=== PATIENT | female | born 1950 | race Asian ===

== ENCOUNTER 2016-12-23 08:44 | Inpatient (IN) | payer MEDICARE, BC ==
[~2016-12-23] VITALS: Ht 157.5 cm; Wt 57.8 kg
[2016-12-23] MEDS ORDERED: ASPIRIN 325 MG TAB PO STA (08:58)
[2016-12-23] MEDS ORDERED: SOD CHLORIDE 0.9% 1,000 ML IV STA (08:58)
--- NOTE | 2016-12-23 09:15 | ERA ---
ER Documentation Chief Complaint Date/Time DATE: 12/23/16 TIME: 09:10 Chief Complaint Right-sided weakness and numbness HPI This is 66-year-old female who stated that 2 days ago she woke with vertigo with nausea vomiting and she had some right foot numbness with mild weakness. She says she was seen at [facility] where she had a CAT scan that was negative and was told that she had vertigo. The patient and daughter state that they told the emergency room physician she was having these leg symptoms but was told that it was related to the vertigo. She said that throughout the day on Friday her numbness and tingling got worse in her right leg than yesterday was even worse with new symptoms of right upper extremity weakness when she woke in the morning. She says today is even worse. She has no speech difficulty or swallowing difficulty. Still has some mild vertigo but not as severe. No visual change. ROS All systems reviewed and are negative except as per history of present illness. Medications Home Meds Reported Medications Meclizine Hcl* (Meclizine Hcl*) 25 Mg Tablet, 25 MG PO Q8H Y for DIZZINESS, TAB 12/23/16 Hydrochlorothiazide* (Hydrochlorothiazide*) 25 Mg Tab, 25 MG PO DAILY, #30 TAB 12/23/16 Allergies Allergies: Coded Allergies: No Known Allergy (Unverified , 12/23/16) FmHx Family History: No coronary disease Physical Exam Vitals Vital Signs Date Time Temp Pulse Resp B/P Pulse Ox O2 Delivery O2 Flow Rate FiO2 12/23/16 11:30 97.9 64 17 161/84 100 2.0 12/23/16 10:00 97.6 61 16 185/79 100 Nasal Cannula 2.0 12/23/16 09:18 Nasal Cannula 2 12/23/16 09:00 98.5 61 11 183/87 100 Physical Exam Const: Well-developed, well-nourished Head: Atraumatic, normocephalic Eyes: Normal Conjunctiva, PERRLA, EOMI, normal sclera, no nystagmus ENT: Normal External Ears, Nose and Mouth, moist mucus membranes. Neck: Full range of motion. No meningismus, no lymphadenopathy. Resp: Clear to auscultation bilaterally, no wheezing, rhonchi, rales Cardio: Regular rate and rhythm, no murmurs, S1 S2 present Abd: Soft, non tender x 4, non distended. Normal bowel sounds, no guarding or rebound, no pulsitile abdominal masses or bruits Skin: No petechiae or rashes, no ecchymosis , no maculopapular rash Back: No midline or flank tenderness Ext: No cyanosis, or edema, FROM x 4, normal inspection, neurovascularly intact x 4 Neur: Awake and alert, STR 5/5 x 2, right upper extremity strength is 2- 3/5, right lower extremity strength is 2-3/5, sensation intact x .2, mild decreased sensation to the right arm and leg, cerebellum intact Psych: Normal Mood and Affect Result Diagram: 12/23/16 0850 12/23/16 0850 Results 24 hrs Laboratory Tests Test 12/23/16 08:50 Activated Partial Thromboplast Time 33.0Sec Alanine Aminotransferase (ALT/SGPT) 29IU/L Albumin 4.2g/dl Albumin/Globulin Ratio 1.07 Alkaline Phosphatase 165IU/L Anion Gap 20 Aspartate Amino Transf (AST/SGOT) 20IU/L Basophils # 0.010^3/ul Basophils % 0.4% Blood Morphology Comment Blood Urea Nitrogen 16mg/dl Calcium Level 9.8mg/dl Carbon Dioxide Level 26mmol/L Chloride Level 96mmol/L Creatinine 0.65mg/dl Direct Bilirubin 0.00mg/dl Eosinophils # 0.110^3/ul Eosinophils % 0.9% Globulin 3.90g/dl Glucose Level 312mg/dl Hematocrit 49.9% Hemoglobin 15.6g/dl INR International Normalized Ratio 0.89 Indirect Bilirubin 0.5mg/dl Lymphocytes # 1.810^3/ul Lymphocytes % 23.1% Mean Corpuscular Hemoglobin 20.6pg Mean Corpuscular Hemoglobin Concent 31.2g/dl Mean Corpuscular Volume 66.1fl Mean Platelet Volume 8.7fl Monocytes # 0.710^3/ul Monocytes % 8.9% Neutrophils # 5.210^3/ul Neutrophils % 66.7% Nucleated Red Blood Cells # 0.010^3/ul Nucleated Red Blood Cells % 0.0/100WBC Platelet Count 19671^3/UL Potassium Level 3.8mmol/L Prothrombin Time 12.0Sec Prothrombin Time Ratio 0.9 Red Blood Count 7.5510^6/ul Red Cell Distribution Width 15.0% Sodium Level 138mmol/L Total Bilirubin 0.5mg/dl Total Protein 8.1g/dl Troponin I < 0.012ng/ml White Blood Count 7.810^3/ul Current Medications Medications (Trade) Dose Ordered Sig/Marcus Route PRN Reason Start Time Stop Time Status Last Admin Dose Admin Sodium Chloride (NS) 1,000 ml @ 1,000 mls/hr Q1H STAT IV 12/23/16 08:58 12/23/16 09:57 DC 12/23/16 09:09 Aspirin (Aspirin) 325 mg ONCE STAT PO 12/23/16 08:58 12/23/16 08:59 DC Procedures/MDM EKG: Rate/Rhythm: Normal Sinus Rhythm,NL intervals QRS, ST, QT: NORMAL TX, QRS, QT] Impression: NORMAL EKG Patient is not a TPA candidate due to the onset of symptoms is 2 days ago PROCEDURE: CT Head without. CLINICAL INDICATION: Possible stroke. TECHNIQUE: The study was performed utilizing a multi-slice, multidetector CT scanner. Direct spiral 1 mm axial sections were obtained through the head without the use of intravenous contrast material. Coronal and sagittal reformats were obtained. The images were reviewed on a PACS workstation. RADIATION DOSE: CTDIvol: 44.9 mGy DLP: 630.2 mGy-cm COMPARISON: No prior studies are available for comparison. FINDINGS: There is no intracranial hemorrhage, extra-axial fluid collection, mass lesion, midline shift or hydrocephalus. There is mild prominence of the cerebral sulci , lateral and third ventricles. There is mild periventricular and subcortical white matter hypodensity. There is no extension of hypodensity through the cortex There is mild arteriosclerotic calcification of the parasellar internal carotid arteries. The pressley-white matter differentiation is preserved. The basal cisterns are patent. The midline structures are intact. There is pneumatization bilateral petrous apices without evidence of inflammatory changes , normal variant. The orbits, calvarium and extracranial soft tissues are normal in appearance. The visualized paranasal sinuses, mastoid air cells and middle ear cavities are normally aerated. IMPRESSION: 1. No acute intracranial abnormality. No intracranial hemorrhage, extra-axial fluid collection, mass lesion or hydrocephalous. 2. Mild peripheral and central cerebral volume loss. 3. Mild periventricular and subcortical white matter hypodensity, likely related to chronic microangiopathic changes. Number 4. No definite evidence of infarct. If clinical concern for infarct, MRI would be helpful for further evaluation. RPTAT: HGAS .Vipul Ramos MD, MD Date Time Electronically viewed and signed by .Vipul Ramos MD, MD on 12/23/2016 10: 31 .S/ CC: OUMOU FUNK DO PROCEDURE: XR Chest. CLINICAL INDICATION: Possible stroke. TECHNIQUE: Single frontal chest x-ray. COMPARISON: None available. FINDINGS: The cardiomediastinal silhouette is unremarkable. Aortic atherosclerotic vascular calcifications are identified. Bibasilar mild atelectasis is noted. No pneumothorax, pleural effusion or consolidation is seen. No acute osseous abnormality is noted. IMPRESSION: 1. Mild bibasilar atelectasis. 2. Aortic atherosclerosis. RPTAT: HFN .Lewis Melgar MD, MD Date Time Electronically viewed and signed by .Lewis Melgar MD, MD on 12/23/2016 10: 14 .N/ CC: OUMOU FUNK DO This patient's clinical picture is consistent with her having a stroke. She has new sided weakness along with vertigo. CT scan does not show an acute infarct or subacute infarct and she will need an MRI to further evaluate this. I will admit the patient to the hospital for further evaluation and workup Departure Diagnosis: Primary Impression: CVA (cerebral vascular accident) Qualified Code: I63.9 - Cerebrovascular accident (CVA), unspecified mechanism Condition: Stable OUMOU FUNK DO Dec 23, 2016 09:14
[2016-12-23 09:33] LABS: BASOPHILS % 0.4 % (0.0-2.0); EOSINOPHILS # 0.1 10^3/ul (0.0-0.5); EOSINOPHILS % 0.9 % (0.0-7.0); HEMATOCRIT 49.9 % (37.0-47.0); HEMOGLOBIN 15.6 g/dl (12.0-16.0); LYMPHOCYTES # 1.8 10^3/ul (0.8-2.9); LYMPHOCYTES % 23.1 % (15.0-51.0); MEAN CORPUSCULAR HEMOGLOBIN 20.6 pg (29.0-33.0); MEAN CORPUSCULAR HGB CONC 31.2 g/dl (32.0-37.0); MEAN CORPUSCULAR VOLUME 66.1 fl (82.0-101.0); MEAN PLATELET VOLUME 8.7 fl (7.4-10.4); MONOCYTE # 0.7 10^3/ul (0.3-0.9); MONOCYTES % 8.9 % (0.0-11.0); NEUTROPHIL # 5.2 10^3/ul (1.6-7.5); NEUTROPHILS % 66.7 % (39.0-77.0); PLATELET COUNT 288 10^3/UL (140-440); RED BLOOD COUNT 7.55 10^6/ul (4.20-5.40); UNCORRECTED WBC 7.8 10^3/ul (4.8-10.8); WHITE BLOOD COUNT 7.8 10^3/ul (4.8-10.8)
[2016-12-23 09:36] LABS: CONDITION 1; LH ANALYZER COMMENTS 1
[2016-12-23 09:41] LABS: ALBUMIN 4.2 g/dl (3.3-4.9); CHLORIDE 96 mmol/L (97-110); SODIUM 138 mmol/L (135-144)
[2016-12-23 09:42] LABS: INR 0.89; POTASSIUM 3.8 mmol/L (3.5-5.1); PT RATIO 0.9
[2016-12-23 09:44] LABS: ALANINE AMINOTRANSFERASE 29 IU/L (13-69); ALBUMIN/GLOBULIN RATIO 1.07; ALKALINE PHOSPHATASE 165 IU/L (42-121); ANION GAP 20 (8-16); ASPARTATE AMINO TRANSFERASE 20 IU/L (15-46); BILIRUBIN,INDIRECT 0.5 mg/dl (0-1.1); BILIRUBIN,TOTAL 0.5 mg/dl (0.2-1.3); BLOOD UREA NITROGEN 16 mg/dl (7-20); CARBON DIOXIDE 26 mmol/L (21-31); CREATININE 0.65 mg/dl (0.44-1.00); GLUCOSE 312 mg/dl (70-220); TOTAL PROTEIN 8.1 g/dl (6.1-8.1)
[2016-12-23 09:45] LABS: CALCIUM 9.8 mg/dl (8.4-10.2)
[2016-12-23] MEDS ORDERED: HYD25 PO (09:51)
[2016-12-23] MEDS ORDERED: MECL-77 PO (09:51)
[2016-12-23 10:01] LABS: TROPONIN-I < 0.012 ng/ml (0.00-0.12)
--- NOTE | 2016-12-23 10:15 | RADRPT ---
PROCEDURE: XR Chest. CLINICAL INDICATION: Possible stroke. TECHNIQUE: Single frontal chest x-ray. COMPARISON: None available. FINDINGS: The cardiomediastinal silhouette is unremarkable. Aortic atherosclerotic vascular calcifications are identified. Bibasilar mild atelectasis is noted. No pneumothorax, pleural effusion or consolidation is seen. No acute osseous abnormality is noted. IMPRESSION: 1. Mild bibasilar atelectasis. 2. Aortic atherosclerosis. RPTAT: HFN .Lewis Melgar MD, Date Time Electronically viewed and signed by .Lewis Melgar MD, on 12/23/2016 10:14 .N/
--- NOTE | 2016-12-23 10:31 | RADRPT ---
PROCEDURE: CT Head without. CLINICAL INDICATION: Possible stroke. TECHNIQUE: The study was performed utilizing a multi-slice, multidetector CT scanner. Direct spira l 1 mm axial sections were obtained through the head without the use of intravenous contrast materia l. Coronal and sagittal reformats were obtained. The images were reviewed on a PACS workstation. RADIATION DOSE: CTDIvol: 44.9 mGyDLP: 630.2 mGy-cm COMPARISON: No prior studies are available for comparison. FINDINGS: There is no intracranial hemorrhage, extra-axial fluid collection, mass lesion, midline shift or hyd rocephalus. There is mild prominence of the cerebral sulci, lateral and third ventricles. There is mild periventricular and subcortical white matter hypodensity. There is no extension of hypodensit y through the cortex There is mild arteriosclerotic calcification of the parasellar internal carotid arteries. The pressley-white matter differentiation is preserved. The basal cisterns are patent. The midline structures are intact. There is pneumatization bilateral petrous apices without evidence o f inflammatory changes, normal variant. The orbits, calvarium and extracranial soft tissues are nor mal in appearance. The visualized paranasal sinuses, mastoid air cells and middle ear cavities are n ormally aerated. IMPRESSION: 1. No acute intracranial abnormality. No intracranial hemorrhage, extra-axial fluid collection, ma ss lesion or hydrocephalous. 2. Mild peripheral and central cerebral volume loss. 3. Mild periventricular and subcortical white matter hypodensity, likely related to chronic microan giopathic changes. Number 4. No definite evidence of infarct. If clinical concern for infarct, MRI would be helpful for further evaluation. RPTAT: HGAS .Vipul Ramos MD, MD Date Time Electronically viewed and signed by .Vipul Ramos MD, MD on 12/23/2016 10:31 .S/
[2016-12-23] MEDS ORDERED: SOD CHLORIDE 0.9% 1,000 ML IV SCH (12:26)
[2016-12-23] MEDS ORDERED: ONDANSETRON 4 MG INJ IV PRN ×2 (12:30→13:30)
[2016-12-23] MEDS ORDERED: ACETAMINOPHEN 325 MG TAB PO PRN ×2 (12:30→13:30)
[2016-12-23] MEDS ORDERED: hydrALAzine 20 MG INJ IV PRN (13:30)
[2016-12-23] MEDS ORDERED: NACL 0.9% 3 ML SYG IV SCH (13:30)
[2016-12-23] MEDS ORDERED: BISACODYL (EC) 5 MG TAB PO PRN (13:30)
[2016-12-23] MEDS ORDERED: MAGNESIUM HYDROXIDE 30ML CUP PO PRN (13:30)
[2016-12-23] MEDS ORDERED: HYDROCODONE/APAP (5/325) TAB PO PRN (13:30)
[2016-12-23] MEDS ORDERED: morphine 2 MG INJ IV PRN (13:30)
[2016-12-23] MEDS ORDERED: LORAZEPAM 0.5 MG TAB PO PRN (13:30)
--- NOTE | 2016-12-23 14:02 | HP ---
Date/Time of Note Date/Time of Note DATE: 12/23/16 TIME: 13:57 Assessment/Plan VTE Prophylaxis VTE Prophylaxis Intervention: SCD's Lines/Catheters IV [facility] [place] Assessment/Plan Assessment/Plan 1. Right hemiparesis. Most probably underlying ischemic stroke. CT scan of the brain negative for any acute findings. Will obtain a brain MRI. The patient will be started on aspirin and statins. Will involve a neurology on the case. Physical therapy, occupational therapy, and speech therapy evaluation will be ordered. 2. Essential hypertension. Patient was noticed to have elevated blood pressure readings. The patient denied any history of essential hypertension. Permissive hypertension will be allowed since the patient most probably has underlying ischemic stroke. 3. Hyperglycemia. Etiology unclear. Will obtain a hemoglobin A1c to evaluate the blood glucose control over the past few weeks. If the patient continues to have elevated blood glucose, the patient will be started on sliding scale insulin. Plan: The patient will be admitted to inpatient telemetry floor. The patient will be started on a low-cholesterol diet. The patient will be started on DVT prophylaxis and gastrointestinal prophylaxis. The patient will remain a full code. Activities will be with assist. Baseline labs including hemoglobin A1c, thyroid panel, and fasting lipid panel will be obtained. A 2D echocardiogram will be obtained to evaluate the left ventricular ejection fraction and to evaluate for any wall motion abnormalities. Will also obtain a carotid Doppler study to evaluate for any hemodynamically significant stenosis. The rest of the patient's management will be based on the clinical course, inputs from consultants, and the results of diagnostic studies. Based on the patient's clinical presentation, she most probably requires at least 2 midnights' stay for further management and evaluation of her clinical presentation. The case and management of this patient was fully discussed with Dr. Domínguez. Approximately 60 minutes was spent on the history and physical of this patient. HPI/ROS Admit Date/Time Admit Date/Time Hx of Present Illness Reason for admission: Right-sided weakness. Consultants 1. Naina Newby MD, Neurology. This is a 66-year-old [place] female who denies any significant past medical history who came to the emergency room at [facility] because of complaint of sudden onset of right-sided weakness and dizziness. As per the patient she went to [facility] on 12/21/2016 because of similar complaints. At that time, the patient was discharged home on oral antiemetics and antihypertensives. The patient denied any prior diagnosis of hypertension. She denied any prior history of diabetes. In the emergency room , the patient was noted to have right-sided hemiparesis. However, the patient was outside the time window for considering any TPA. The patient underwent a brain CT scan that was negative for any acute intracranial findings. The patient was treated with oral aspirin in the emergency room. ROS Constitutional: no complaints Eyes: no complaints ENT: no complaints Respiratory: no complaints Cardiovascular: no complaints Gastrointestinal: no complaints Genitourinary: no complaints Musculoskeletal: no complaints Skin: no complaints Neurologic: dizziness, focal-weakness Endocrine: no complaints Lymphatic: no complaints Psychological: no complaints Immunologic: no complaints PMH/Family/Social Past Medical History Medical History: no pertinent history Past Surgical History Past Surgical Hx: other (Left knee surgery) Family History Significant Family History: heart disease (In mother), hypertension (In father) Social History Alcohol Use: other (Socially) Smoking Status: Never smoker Drug Use: none Exam/Review of Systems Vital Signs Vitals Vital Signs Date Time Temp Pulse Resp B/P Pulse Ox O2 Delivery O2 Flow Rate FiO2 12/23/16 11:30 97.9 64 17 161/84 100 2.0 12/23/16 10:00 Nasal Cannula Exam Exam General: Adequately build 66 year-old female lying in bed in no apparent distress. HEENT: Normocephalic, atraumatic. Eyes: Anicteric sclerae, conjunctivae clear. ENT: Nasal septum midline, oral mucosa moist. Neck supple, no JVD noticed. Respiratory: Bilaterally clear breath sounds. No use of accessory muscles of respiration. No adventitious breath sounds. Cardiovascular: S1, S2 heard. No murmurs or gallops. Abdomen: Soft, nontender, and nondistended. Bowel sounds positive in all 4 quadrants. Genitourinary: Deferred. Extremities: No cyanosis, no clubbing, no edema. Peripheral pulses palpable. Neurologic: The patient is awake, alert, and oriented. Right hemiparesis. Right upper extremity 2/5 and right lower extremity 2/5 strength. Skin: Normal skin turgor. No skin rashes. Labs Result Diagram: 12/23/16 0850 12/23/16 0850 Medications Medications Current Medications Sodium Chloride (NS) 1,000 ml @ 80 mls/hr [id number] IV Last administered on t 12:52; Admin Dose 80 MLS/HR; Start 12/23/16 at 12:26; Stop 12/24/16 at 00:55 Lorazepam (Ativan) 0.5 mg Q8H PRN PO ANXIETY; Start 12/23/16 at 13:30 Ondansetron HCl (Zofran Inj) 4 mg Q6H PRN IV NAUSEA AND/OR VOMITING; Start 12/23 at 13:30 Acetaminophen (Tylenol Tab) 650 mg Q6H PRN PO PAIN LEVEL 1-3 OR FEVER; Start at 13:30 Acetaminophen/ Hydrocodone Bitart (Clifford (5/325)) 1 tab Q6H PRN PO PAIN LEVEL 4 -6; Start 12/23/16 at 13:30 Morphine Sulfate (morphine) 2 mg Q4H PRN IV PAIN LEVEL 7-10; Start 12/23/16 at 13:30 Magnesium Hydroxide (Milk Of Mag) 30 ml DAILY PRN PO CONSTIPATION; Start at 13:30 Bisacodyl (Dulcolax) 5 mg DAILY PRN PO CONSTIPATION; Start 12/23/16 at 13:30 Famotidine (Pepcid Iv) 20 mg Q12 IV ; Start 12/23/16 at 21:00 Hydralazine HCl (Apresoline) 10 mg Q6H PRN IV SBP>180; Start 12/23/16 at 13:30 Aspirin (Halfprin) 81 mg DAILY PO ; Start 12/24/16 at 09:00 Atorvastatin Calcium (Lipitor) 40 mg HS PO ; Start 12/23/16 at 21:00 Meclizine HCl (Antivert) 12.5 mg TID PRN PO Vertigo; Start 12/23/16 at 13:[address] Scan MPRESSION: 1. No acute intracranial abnormality. No intracranial hemorrhage, extra-axial fluid collection, mass lesion or hydrocephalous. 2. Mild peripheral and central cerebral volume loss. 3. Mild periventricular and subcortical white matter hypodensity, likely related to chronic microangiopathic changes. Number 4. No definite evidence of infarct. If clinical concern for infarct, MRI would be helpful for further evaluation. CXR IMPRESSION: 1. Mild bibasilar atelectasis. 2. Aortic atherosclerosis. Twelve-Lead EKG Normal sinus rhythm. JUSTIN GORDILLO NP Dec 23, 2016 14:02
--- NOTE | 2016-12-23 14:03 | RADRPT ---
PROCEDURE: XR Knee. CLINICAL INDICATION: Knee pain. Evaluate for metal object. TECHNIQUE: Single AP view of the left knee is available for review. COMPARISON: None available FINDINGS: There is a cerclage wire and K wire fixation of the patella, partially evaluated on a single AP proj ection. The remaining osseous structures are intact. The medial and lateral femorotibial compartme nts appear grossly preserved. IMPRESSION: 1. Status post ORIF of the patella with hardware as above, partially evaluated. RPTAT: PP .Gokul Jennings MD, MD Date Time Electronically viewed and signed by .Gokul Jennings MD, MD on 12/23/2016 14:02 .d/
[2016-12-23] MEDS: MECLIZINE 12.5 MG TAB PO PRN (14:25)
[2016-12-23] MEDS ORDERED: GLUCOSE GEL 15 GRAM TUBE BUCCAL PRN (14:30)
[2016-12-23] MEDS ORDERED: GLUCOSE GEL 15 GRAM TUBE PO PRN ×2 (14:30)
[2016-12-23] MEDS ORDERED: GLUCAGON 1 MG INJ IM PRN (14:30)
[2016-12-23] MEDS ORDERED: DEXTROSE 50% 50 ML SYRINGE IV PRN ×2 (14:30)
--- NOTE | 2016-12-23 14:39 | RADRPT ---
Echocardiogram Report Patient Name: BRAIN DAVILA Gender: Female Date: 1950 Study Date: 23-Dec-2016 Inletter: Herson Goldsmith RDCS Location: ER Ref. Physician: JUSTIN GORDILLO Quality: Good Procedures: Transthoracic echocardiogram with complete 2D, M-Mode, and doppler examination. Indications: Evaluate Left Ventricular function. 2D/M Mode Doppler Measurement Value Normal Ranges Measurement Value Normal Ranges LVIDd 2D 3.9 3.5 - 5.6 cm AV Peak Roland 1.2 m/sec LVIDs 2D 2.4 2.1 - 4.1 cm AV Peak PG 6.0 mmHg FS 2D 39.1 % LVOT Peak Roland 1.1 m/sec LVPWd 2D 1.1 0.6 - 1.1 cm LVOT Peak PG 4.0 mmHg IVSd 2D 1.2 0.6 - 1.1 cm MV E Peak Roland 0.5 m/sec IVS/LVPW 2D 1.0 MV A Peak Roland 0.8 m/sec AoR Diam 2D 2.5 2.0 - 3.7 cm MV E/A 0.6 LA/Ao 2D 2 0 - 1 MV Decel Time 250 msec EDV 2D 59.8 cm3 MV E/A 0.6 ESV 2D 13.5 cm3 LA Dimen 2D 3.8 2.3 - 4.0 cm Findings Left Ventricle: Normal left ventricular systolic function. Normal left ventricular cavity size. Mild concentric left ventricular hypertrophy. Ejection fraction is visually estimated at 65 %. Tissue Doppler/Mitral Doppler indices are consistent with impaired relaxation (Stage I diastolic dysfunction). Right Ventricle: Normal right ventricular size. Normal right ventricular systolic function. Left Atrium: The left atrium is normal in size. Right Atrium: The right atrium is normal in size. Mitral Valve: Normal appearance and function of the mitral valve with trace physiologic regurgitation. Aortic Valve: Normal appearance of the aortic valve. No significant aortic stenosis or insufficiency. Tricuspid Valve: Normal appearance and function of the tricuspid valve with trace physiologic regurgitation. Pericardium: Normal pericardium with no significant pericardial effusion. Aorta: Normal aortic root. IVC: Normal size and normal respiratory collapse consistent with normal right atrial pressure. Conclusions 1.Normal left ventricular systolic function. Normal left ventricular cavity size. Mild concentric left ventricular hypertrophy. Ejection fraction is visually estimated at 65 %. Tissue Doppler/Mitral Doppler indices are consistent with impaired relaxation (Stage I diastolic dysfunction). 2.Normal appearance and function of the mitral valve with trace physiologic regurgitation. 3.Normal appearance of the aortic valve. No significant aortic stenosis or insufficiency. 4.Normal appearance and function of the tricuspid valve with trace physiologic regurgitation. Electronically Signed By: Stephan Jackson 23-Dec-2016 14:38:26 -0800 Patient Name: BRAIN DAVILA Study Date: 23-Dec-2016 [id number]
[2016-12-23 14:45] LABS: CHOL/HDL RATIO 5.7 RATIO
[2016-12-23 14:54] LABS: CK-MB 0.37 ng/ml (0.0-2.4)
--- NOTE | 2016-12-23 15:08 | RADRPT ---
PROCEDURE: US Carotids. CLINICAL INDICATION: bruit , STROKE TECHNIQUE: Multiple sonographic of the carotid bifurcation region and vertebral arteries were obta ined utilizing pressley scale, duplex and color-flow imaging. The images were reviewed on a PACS worksta tion. COMPARISON: No prior studies are available for comparison. FINDINGS: Evaluation of the right carotid bifurcation region reveals no significant calcific atherosclerotic d isease. Evaluation of the left carotid bifurcation region reveals no significant calcific atherosclerotic di sease. There is antegrade flow within the vertebral arteries bilaterally. RIGHT CAROTID MEASUREMENTS: Common Carotid Nmzvqp92.4 (cm/sec) Internal Carotid Artery - kbgmyioy57.8 (cm/sec) Internal Carotid Artery - mid84.7 (cm/sec) Internal Carotid Artery - coywxn57.1 (cm/sec) Internal Carotid/Common Carotid1.09 LEFT CAROTID MEASUREMENTS: Common Carotid Kwsmhk58 (cm/sec) Internal Carotid Artery - iwkwyakz89.1 (cm/sec) Internal Carotid Artery - midnot measured but with normal wave forms and grossly normal velocity Internal Carotid Artery - ilwfvv13 (cm/sec) Internal Carotid/Common Carotid0.84 RPTAT: AA IMPRESSION: No evidence for hemodynamically significant stenosis in the bilateral internal carotid arteries - va lidated velocity measurements with angiographic measurements, velocity criteria are extrapolated fro m diameter data as defined by the Society of Radiologists in Ultrasound Consensus Conference Radiolo gy 2003; 229;340-346. This study does indirectly reference the measurement of the distal ICA diamet er as the denominator for stenosis measurement. Normal antegrade flow in the vertebral arteries bilaterally. .Jamir Ortega MD, Date Time Electronically viewed and signed by .Jamir Ortega MD, MD on 12/23/2016 15:07 .S/
[2016-12-23 15:17] LABS: THYROID STIMULATING HORMONE 0.222 MIU/L (0.465-4.680)
--- NOTE | 2016-12-23 17:15 | RADRPT ---
AMENDMENT: 12/25/2016 4:51:56 PM Hardik Vargas M.D. Impression: There is a 6.7 mm acute infarct in the ventral janis at the level of the fourth ventricl e. There is a 3 mm acute infarct in the dorsal janis just ventral to the fourth ventricle. This repr esents a correction to the earlier report. PROCEDURE: MRA Brain without contrast. CLINICAL INDICATION: Stroke-like symptoms. TECHNIQUE: Multi echo multiplanar imaging is performed to the brain. COMPARISON: CT scan of the brain 12/23/2016. FINDINGS: The weighted images of the brain are performed with no focal areas of acute ischemic change identifi ed. ADC maps of the brain are normal. The fourth ventricle, third and lateral ventricles are aleks l in size and configuration. There are extensive changes in the white matter tracts at the level of the centrum semiovale and cor jamil radiata. There are chronic small vessel ischemic changes in the insular cortex greater on the l eft side than right. The the basal ganglia are unremarkable. There is some chronic ischemic change in the mid janis ventral to the fourth ventricle para There is no evidence of subarachnoid hemorrhage. The pituitary gland is normal in size for the cere bellum is normal. The parotid glands are unremarkable or visualized. The visible portions of the p aranasal sinuses and mastoid air cells are clear bilaterally. The bony calvarium is intact. IMPRESSION: 1. Chronic small vessel ischemic changes are noted in the janis and periventricular white matter tra cts adjacent to the lateral ventricles. 2. There is no evidence of a intracranial hemorrhage or acute intracerebral edema. 3. Repeated calls to [phone] were attempted. RPTAT:AAJJ Physician Gerry Date Time Electronically viewed and signed by Physician Gerry on 12/25/2016 16:52 OLIVIA/
--- NOTE | 2016-12-23 17:16 | RADRPT ---
PROCEDURE: MRA Brain. CLINICAL INDICATION: CVA TECHNIQUE: An MRA of the brain was performed on a 1.5 melissa scanner utilizing 3-D [id number]-[id number] MR angiography technique. Source and MIP images were reviewed. COMPARISON: None FINDINGS: 6 x 3 x 3 mm outpouching compatible with intracranial aneurysm at the junction of the anterior commu nicating artery and right A1 segment. CT angiography is recommended to confirm this finding . The internal carotid arteries are patent and normal in caliber. The middle cerebral and the anterio r cerebral arteries are also patent and normal in caliber with no significant luminal irregularity o r narrowing identified. The vertebral arteries, basilar artery, and superior cerebellar arteries are visualized and normal i n appearance. The vertebral artery is dominant. The posterior cerebral arteries are patent and normal in appearance bilaterally. No vascular malfo rmation. IMPRESSION: 1. 6 x 3 x 3 mm vascular outpouching at the junction of the right A1 segment and anterior communicat ing artery. most compatible with intracranial aneurysm. 2. No vascular malformation or large branch occlusion. RPTAT:AAJJ Physician Clau Date Time Electronically viewed and signed by Physician Clau on 12/23/2016 17:11 MACI/
[2016-12-23 19:15] VITALS: TEMP 98.6
[2016-12-23] MEDS: INSULIN ASPART [NOVOLOG] 3 ML PEN SC SCH ×2 (19:32→22:27)
[2016-12-23 20:00] VITALS: BP 144/75; PULSE 77; RESP 20; Ht 157.5 cm; Wt 57.8 kg
[2016-12-23 20:29] VITALS: BP 160/72; RESP 20
[2016-12-23 21:00] VITALS: BP 144/76; PULSE 77; RESP 20
[2016-12-23] MEDS: FAMOTIDINE 20 MG INJ IV SCH (22:11)
[2016-12-23] MEDS: ATORVASTATIN 40 MG TAB PO SCH (22:11)
[2016-12-23 23:43] VITALS: BP 154/70; RESP 20
[2016-12-24] VITALS (11 sets, daily range): BP systolic 129–193; BP diastolic 62–82; PULSE 57–85; RESP 15–20
[2016-12-24] MEDS: MECLIZINE 12.5 MG TAB PO PRN (07:57)
[2016-12-24 08:39] LABS: BASOPHIL # 0.1 10^3/ul (0.0-0.1); BASOPHILS % 0.9 % (0.0-2.0); EOSINOPHILS # 0.3 10^3/ul (0.0-0.5); EOSINOPHILS % 2.9 % (0.0-7.0); HEMATOCRIT 45.4 % (37.0-47.0); HEMOGLOBIN 14.5 g/dl (12.0-16.0); LYMPHOCYTES # 2.4 10^3/ul (0.8-2.9); LYMPHOCYTES % 27.1 % (15.0-51.0); MEAN CORPUSCULAR HEMOGLOBIN 21.1 pg (29.0-33.0); MEAN CORPUSCULAR HGB CONC 31.9 g/dl (32.0-37.0); MEAN CORPUSCULAR VOLUME 66.1 fl (82.0-101.0); MEAN PLATELET VOLUME 9.1 fl (7.4-10.4); MONOCYTE # 0.8 10^3/ul (0.3-0.9); MONOCYTES % 9.2 % (0.0-11.0); NEUTROPHIL # 5.4 10^3/ul (1.6-7.5); NEUTROPHILS % 59.9 % (39.0-77.0); PLATELET COUNT 318 10^3/UL (140-440); RED BLOOD COUNT 6.86 10^6/ul (4.20-5.40); RED CELL DISTRIBUTION WIDTH 14.9 % (11.5-14.5)
[2016-12-24 08:41] LABS: ALBUMIN 3.7 g/dl (3.3-4.9)
[2016-12-24 08:42] LABS: CREATINE KINASE 42 IU/L (23-200); MAGNESIUM 1.9 mg/dl (1.7-2.5); PHOSPHORUS 2.8 mg/dl (2.5-4.9); POTASSIUM 3.4 mmol/L (3.5-5.1)
[2016-12-24 08:44] LABS: ALBUMIN/GLOBULIN RATIO 1.05; BILIRUBIN,INDIRECT 0.6 mg/dl (0-1.1); BILIRUBIN,TOTAL 0.6 mg/dl (0.2-1.3); CREATININE 0.54 mg/dl (0.44-1.00); TOTAL PROTEIN 7.2 g/dl (6.1-8.1)
[2016-12-24 08:45] LABS: CALCIUM 8.9 mg/dl (8.4-10.2)
[2016-12-24 08:54] LABS: CK-MB < 0.22 ng/ml (0.0-2.4); TROPONIN-I < 0.012 ng/ml (0.00-0.12)
[2016-12-24 08:58] LABS: CONDITION 1; LH ANALYZER COMMENTS 1
[2016-12-24] MEDS: FAMOTIDINE 20 MG INJ IV SCH (08:59)
[2016-12-24] MEDS ORDERED: ASPIRIN (EC) 81 MG TAB PO SCH (09:00)
[2016-12-24] MEDS: INSULIN ASPART [NOVOLOG] 3 ML PEN SC SCH ×7 (09:07→21:47)
[2016-12-24] MEDS ORDERED: POTASSIUM CHLORIDE (SR) 20 MEQ TAB PO STA (10:05)
--- NOTE | 2016-12-24 10:11 | PN ---
Date/Time of Note Date/Time of Note DATE: 12/24/16 TIME: 10:10 Assessment/Plan VTE Prophylaxis VTE Prophylaxis Intervention: SCD's Lines/Catheters IV [facility]ter Type (from [facility]): Peripheral IV Urinary Cath still in place: No Assessment/Plan Chief Complaint/Hosp Course 1. Right hemiparesis. Physical therapy, occupational therapy, and speech therapy evaluation ordered. Brain MRI showing 6 x 3 x 3 mm vascular outpouching at the junction of the right A1 segment and anterior communicating artery. most compatible with intracranial aneurysm. Neurology following. Will discontinue the aspirin. Will continue statins. 2. Essential hypertension. Will start the patient on routine antihypertensives. Continue PRN antihypertensives. 3. Type 2 diabetes mellitus. New onset versus newly diagnosed. Hemoglobin A1c 11.5. The patient currently on sliding scale insulin. Will also start the patient on basal insulin and pre-meal insulin. Will involve medical educator. 4 . Dyslipidemia. The patient currently on statins which will be continued. 5. Vitamin D deficiency. Will start the patient on vitamin D supplements. 6. Fluids, electrolytes, and nutrition. Carbohydrate controlled, low- cholesterol diet. 7. DVT prophylaxis with bilateral sequential compression devices. 8. Gastrointestinal prophylaxis. Histamine 2 receptor blockers. 9. Plan. Await PT and OT evaluation. Case discussed with Dr. Domínguez. The case was discussed with neurology. Neurology recommended neurosurgery evaluation. Will call neurosurgery. Problems: Subjective 24 Hr Interval Summary Free Text/Dictation Complains of dizziness. Exam/Review of Systems Vital Signs Vitals Vital Signs Date Time Temp Pulse Resp B/P Pulse Ox O2 Delivery O2 Flow Rate FiO2 12/24/16 08:37 57 12/24/16 07:45 97.4 20 188/78 93 12/23/16 21:00 Nasal Cannula 2.0 Intake and Output 12/23/16 12/23/16 12/24/16 15:00 23:00 07:00 Intake Total 300 ml Balance 300 ml Exam General: Adequately build 66 year-old female lying in bed in no apparent distress. HEENT: Normocephalic, atraumatic. Eyes: Anicteric sclerae, conjunctivae clear. ENT: Nasal septum midline, oral mucosa moist. Neck supple, no JVD noticed. Respiratory: Bilaterally clear breath sounds. No use of accessory muscles of respiration. No adventitious breath sounds. Cardiovascular: S1, S2 heard. No murmurs or gallops. Abdomen: Soft, nontender, and nondistended. Bowel sounds positive in all 4 quadrants. Genitourinary: Deferred. Extremities: No cyanosis, no clubbing, no edema. Peripheral pulses palpable. Neurologic: The patient is awake, alert, and oriented. Right hemiparesis. Right upper extremity 2/5 and right lower extremity 2/5 strength. Skin: Normal skin turgor. No skin rashes. Results Result Diagram: 12/24/16 0720 12/24/16 0720 Results 24 hrs Laboratory Tests Test 12/23/16 15:00 12/23/16 19:20 12/23/16 22:09 12/24/16 07:20 Hemoglobin A1c 11.5 H Bedside Glucose 157 224 H Alanine Aminotransferase (ALT/SGPT) 23 Albumin 3.7 Albumin/Globulin Ratio 1.05 Alkaline Phosphatase 140 H Anion Gap 17 H Aspartate Amino Transf (AST/SGOT) 24 Basophils # 0.1 Basophils % 0.9 Blood Morphology Comment Blood Urea Nitrogen 16 Calcium Level 8.9 Carbon Dioxide Level 25 Chloride Level 100 Creatine Kinase 42 Creatine Kinase Index 0.5 Creatinine 0.54 Creatinine Kinase MB (Mass) < 0.22 Direct Bilirubin 0.00 Eosinophils # 0.3 Eosinophils % 2.9 Globulin 3.50 H Glucose Level 184 # Hematocrit 45.4 Hemoglobin 14.5 Indirect Bilirubin 0.6 Lymphocytes # 2.4 Lymphocytes % 27.1 Magnesium Level 1.9 Mean Corpuscular Hemoglobin 21.1 L Mean Corpuscular Hemoglobin Concent 31.9 L Mean Corpuscular Volume 66.1 L Mean Platelet Volume 9.1 Monocytes # 0.8 Monocytes % 9.2 Neutrophils # 5.4 Neutrophils % 59.9 Nucleated Red Blood Cells # 0.0 Nucleated Red Blood Cells % 0.0 Phosphorus Level 2.8 Platelet Count 318 Potassium Level 3.4 L Red Blood Count 6.86 H Red Cell Distribution Width 14.9 H Sodium Level 139 Total Bilirubin 0.6 Total Protein 7.2 Troponin I < 0.012 White Blood Count 9.0 Test 12/24/16 08:08 Bedside Glucose 197 Medications Medications Current Medications Lorazepam (Ativan) 0.5 mg Q8H PRN PO ANXIETY; Start 12/23/16 at 13:30 Ondansetron HCl (Zofran Inj) 4 mg Q6H PRN IV NAUSEA AND/OR VOMITING; Start 12/23 at 13:30 Acetaminophen (Tylenol Tab) 650 mg Q6H PRN PO PAIN LEVEL 1-3 OR FEVER; Start at 13:30 Acetaminophen/ Hydrocodone Bitart ([place] (5/325)) 1 tab Q6H PRN PO PAIN LEVEL 4 -6; Start 12/23/16 at 13:30 Morphine Sulfate (morphine) 2 mg Q4H PRN IV PAIN LEVEL 7-10; Start 12/23/16 at 13:30 Magnesium Hydroxide (Milk Of Mag) 30 ml DAILY PRN PO CONSTIPATION; Start at 13:30 Bisacodyl (Dulcolax) 5 mg DAILY PRN PO CONSTIPATION; Start 12/23/16 at 13:30 Famotidine (Pepcid Iv) 20 mg Q12 IV Last administered on 12/24/16 08:59; Admin Dose 20 MG; Start 12/23/16 at 21:00 Hydralazine HCl (Apresoline) 10 mg Q6H PRN IV SBP>180 Last administered on 14:25; Admin Dose 10 MG; Start 12/23/16 at 13:30 Aspirin (Halfprin) 81 mg DAILY PO Last administered on 12/24/16 08:59; Admin Dose 81 MG; Start 12/24/16 at 09:00 Atorvastatin Calcium (Lipitor) 40 mg HS PO Last administered on 12/23/16 22:11 ; Admin Dose 40 MG; Start 12/23/16 at 21:00 Meclizine HCl (Antivert) 12.5 mg TID PRN PO Vertigo Last administered on 07:57; Admin Dose 12.5 MG; Start 12/23/16 at 13:30 Miscellaneous Information 1 ea NOTE XX ; Start 12/23/16 at 14:30 Glucose (Glutose) 15 gm Q15M PRN PO DECREASED GLUCOSE; Start 12/23/16 at 14:30 Glucose (Glutose) 22.5 gm Q15M PRN PO DECREASED GLUCOSE; Start 12/23/16 at 14:30 Dextrose (D50w Syringe) 25 ml Q15M PRN IV DECREASED GLUCOSE; Start 12/23/16 at 14:30 Dextrose (D50w Syringe) 50 ml Q15M PRN IV DECREASED GLUCOSE; Start 12/23/16 at 14:30 Glucagon (Glucagen) 1 mg Q15M PRN IM DECREASED GLUCOSE; Start 12/23/16 at 14:30 Glucose (Glutose) 15 gm Q15M PRN BUCCAL DECREASED GLUCOSE; Start 12/23/16 at 14: 30 Nifedipine (Procardia Xl) 60 mg BID PO ; Start 12/24/16 at 10:00 JUSTIN GORDILLO NP Dec 24, 2016 10:10
[2016-12-24 10:24] LABS: ADD UMIC YES; URINE BILIRUBIN (Dip) NEGATIVE (NEGATIVE); URINE BLOOD (Dip) NEGATIVE (NEGATIVE); URINE COLOR LT. YELLOW (YELLOW); URINE KETONES (Dip) NEGATIVE (NEGATIVE); URINE LEUKOCYTE ESTERASE (Dip) 1+ (NEGATIVE); URINE NITRITE (Dip) NEGATIVE (NEGATIVE); URINE TOTAL PROTEIN (Dip) NEGATIVE (NEGATIVE); URINE UROBILINOGEN (Dip) 0.2 E.U./dL (0.1-1.0)
[2016-12-24 10:36] LABS: BACTERIA,URINE FEW; MUCUS,URINE MODERATE; SQUAMOUS EPITHELIAL CELL,UR MODERATE; URINE RBCS NONE SEEN /HPF (0)
[2016-12-24] MEDS: CHOLECALCIFEROL 1,000 UNIT TAB PO SCH (11:45)
[2016-12-24] MEDS: NIFEdipine (XL) 60 MG TAB PO SCH ×2 (11:45→21:48)
[2016-12-24 11:47] LABS: BARBITURATES NEGATIVE (NEGATIVE); BENZODIAZEPINES NEGATIVE (NEGATIVE); CANNABINOIDS NEGATIVE (NEGATIVE); COCAINE NEGATIVE (NEGATIVE); OPIATES NEGATIVE (NEGATIVE)
--- NOTE | 2016-12-24 12:14 | CONS ---
Date/Time of Note Date/Time of Note DATE: 12/24/16 TIME: 11:55 Assessment/Plan Assessment/Plan Chief Complaint/Hosp Course 66 year old female with right sided weakness mostly involving distal muscle groups since this past Friday, incidental unruptured 6 x 3 x 3 mm aneurysm found in Right A1 and Right ACOM and MRI with extensive chronic microvascular changes. -MRA may overestimate size of intracranial aneurysm, will obtain CTA Head w contrast for further evaluation -will request neurosurgery to review imaging, she will require outpatient follow up with endovascular neurosurgery as well -MRI Cervical Spine w/o contrast to r/o possible cord pathology -PT/OT/Speech follow up -DVT ppx -will follow Problems: Consultation Date/Type/Reason Admit Date/Time 12/23/16 Date of Consultation: Dec 24, 2016 Type of Consultation: Neurology Reason for Consultation right sided weakness since Friday Referring Provider: JUSTIN GORDILLO NP Hx of Present Illness 66 year old Greek female with no reported medical issues presented with complaints of sudden onset right sided weakness since this past Friday. She went to [place] for similar sx on 12/21 was dc home on antiemetics and antihypertensives, has no known history of hypertension. While in the ED she was noted to right hemiparesis out of a window for IV tPA. Initial Head CT was negative, she was admitted for further work up. MRI Brain chronic microvascular changes, no acute infarct. MRA Head shows 6 x 3 x 3 mm outpouching at junction of A1 segment and ANA intracranial aneurysm no vascular occlusion dizziness intermittent neck pain blurred vision right sided weakness Eyes: no complaints ENT: no complaints Respiratory: no complaints Cardiovascular: no complaints Gastrointestinal: no complaints Genitourinary: no complaints Musculoskeletal: no complaints Skin: no complaints Neurologic: dizziness, focal-weakness Lymphatic: no complaints Psychological: no complaints Immunologic: no complaints Past Medical History Medical History: no pertinent history Past Surgical History Past Surgical Hx: other (Left knee surgery) Social History Alcohol Use: rarely Smoking Status: Never smoker Drug Use: none Exam/Review of Systems Vital Signs Vitals Vital Signs Date Time Temp Pulse Resp B/P Pulse Ox O2 Delivery O2 Flow Rate FiO2 12/24/16 11:35 97.5 63 20 193/82 95 12/23/16 21:00 Nasal Cannula 2.0 Intake and Output 12/23/16 12/23/16 12/24/16 15:00 23:00 07:00 Intake Total 300 ml Balance 300 ml Exam awake and alert oriented x3 crying intermittently during examination no aphasia CN: CORBY, VFF, slight skew deviation on upgaze, mild right NLF flattening palate upgoing uvula midline scm/trap intact tongue is midline Motor: Left UE and LE 5/5 strength RUE weakness 3/5 mostly distally can lift anti-gravity when arm is supported she has 3/5 strength in flexion extension profound hand weakness RLE hip flexion 3/5 knee flexion extension 3/5 absent plantar flexion dorsiflexion Sensory: decreased to right face, right arm and right leg Reflexes: 2+ Biceps and Triceps, Brachioradialis, Patella 2+, absent AJ toes down Results Result Diagram: 12/24/1671912/24/16 0720 Results 24 hrs Laboratory Tests Test 12/23/16 15:00 12/23/16 19:20 12/23/16 22:09 12/24/16 07:20 Hemoglobin A1c 11.5 H Bedside Glucose 157 224 H Alanine Aminotransferase (ALT/SGPT) 23 Albumin 3.7 Albumin/Globulin Ratio 1.05 Alkaline Phosphatase 140 H Anion Gap 17 H Aspartate Amino Transf (AST/SGOT) 24 Basophils # 0.1 Basophils % 0.9 Blood Morphology Comment Blood Urea Nitrogen 16 Calcium Level 8.9 Carbon Dioxide Level 25 Chloride Level 100 Creatine Kinase 42 Creatine Kinase Index 0.5 Creatinine 0.54 Creatinine Kinase MB (Mass) < 0.22 Direct Bilirubin 0.00 Eosinophils # 0.3 Eosinophils % 2.9 Globulin 3.50 H Glucose Level 184 # Hematocrit 45.4 Hemoglobin 14.5 Indirect Bilirubin 0.6 Lymphocytes # 2.4 Lymphocytes % 27.1 Magnesium Level 1.9 Mean Corpuscular Hemoglobin 21.1 L Mean Corpuscular Hemoglobin Concent 31.9 L Mean Corpuscular Volume 66.1 L Mean Platelet Volume 9.1 Monocytes # 0.8 Monocytes % 9.2 Neutrophils # 5.4 Neutrophils % 59.9 Nucleated Red Blood Cells # 0.0 Nucleated Red Blood Cells % 0.0 Phosphorus Level 2.8 Platelet Count 318 Potassium Level 3.4 L Red Blood Count 6.86 H Red Cell Distribution Width 14.9 H Sodium Level 139 Total Bilirubin 0.6 Total Protein 7.2 Troponin I < 0.012 White Blood Count 9.0 Test 12/24/16 07:43 12/24/16 08:08 Urine Amphetamines Screen NEGATIVE Urine Bacteria FEW Urine Barbiturates NEGATIVE Urine Benzodiazepines Screen NEGATIVE Urine Bilirubin NEGATIVE Urine Cannabinoids NEGATIVE Urine Clarity HAZY Urine Cocaine Screen NEGATIVE Urine Color LT. YELLOW Urine Glucose 0.1% H Urine Hemoglobin NEGATIVE Urine Ketones NEGATIVE Urine Leukocyte Esterase 1+ H Urine Microscopic RBC NONE SEEN Urine Microscopic WBC 10-25 Urine Mucus MODERATE Urine Nitrite NEGATIVE Urine Opiates Screen NEGATIVE Urine Specific [place] 1.025 Urine Squamous Epithelial Cells MODERATE Urine Total Protein NEGATIVE Urine Urobilinogen 0.2 E.U./dL Urine pH 6.0 Bedside Glucose 197 Medications Medications Current Medications Lorazepam (Ativan) 0.5 mg Q8H PRN PO ANXIETY; Start 12/23/16 at 13:30 Ondansetron HCl (Zofran Inj) 4 mg Q6H PRN IV NAUSEA AND/OR VOMITING; Start 12/23 at 13:30 Acetaminophen (Tylenol Tab) 650 mg Q6H PRN PO PAIN LEVEL 1-3 OR FEVER; Start at 13:30 Acetaminophen/ Hydrocodone Bitart ([place] (5/325)) 1 tab Q6H PRN PO PAIN LEVEL 4 -6; Start 12/23/16 at 13:30 Morphine Sulfate (morphine) 2 mg Q4H PRN IV PAIN LEVEL 7-10; Start 12/23/16 at 13:30 Magnesium Hydroxide (Milk Of Mag) 30 ml DAILY PRN PO CONSTIPATION; Start at 13:30 Bisacodyl (Dulcolax) 5 mg DAILY PRN PO CONSTIPATION; Start 12/23/16 at 13:30 Famotidine (Pepcid Iv) 20 mg Q12 IV Last administered on 12/24/16 08:59; Admin Dose 20 MG; Start 12/23/16 at 21:00 Hydralazine HCl (Apresoline) 10 mg Q6H PRN IV SBP>180 Last administered on 14:25; Admin Dose 10 MG; Start 12/23/16 at 13:30 Atorvastatin Calcium (Lipitor) 40 mg HS PO Last administered on 12/23/16 22:11 ; Admin Dose 40 MG; Start 12/23/16 at 21:00 Meclizine HCl (Antivert) 12.5 mg TID PRN PO Vertigo Last administered on 07:57; Admin Dose 12.5 MG; Start 12/23/16 at 13:30 Miscellaneous Information 1 ea NOTE XX ; Start 12/23/16 at 14:30 Glucose (Glutose) 15 gm Q15M PRN PO DECREASED GLUCOSE; Start 12/23/16 at 14:30 Glucose (Glutose) 22.5 gm Q15M PRN PO DECREASED GLUCOSE; Start 12/23/16 at 14:30 Dextrose (D50w Syringe) 25 ml Q15M PRN IV DECREASED GLUCOSE; Start 12/23/16 at 14:30 Dextrose (D50w Syringe) 50 ml Q15M PRN IV DECREASED GLUCOSE; Start 12/23/16 at 14:30 Glucagon (Glucagen) 1 mg Q15M PRN IM DECREASED GLUCOSE; Start 12/23/16 at 14:30 Glucose (Glutose) 15 gm Q15M PRN BUCCAL DECREASED GLUCOSE; Start 12/23/16 at 14: 30 Nifedipine (Procardia Xl) 60 mg BID PO Last administered on 12/24/16 11:45; Admin Dose 60 MG; Start 12/24/16 at 10:00 Insulin Glargine (Lantus) 6 unit HS SC ; Start 12/24/16 at 21:00 Diagnostic Test (Pha) (Accucheck) 1 ea 02 XX ; Start 12/25/16 at 02:00 Cholecalciferol (Vitamin D) 1,000 unit DAILY PO Last administered on 12/24/16 11:45; Admin Dose 1,000 UNIT; Start 12/24/16 at 10:30 JORGE VELÁZQUEZ MD Dec 24, 2016 12:09
[2016-12-24] MEDS ORDERED: SOD CHLORIDE 0.9% 100 ML ONE (14:02)
[2016-12-24] MEDS ORDERED: IODIXANOL LOCM 100 ML BTL ONE (14:02)
--- NOTE | 2016-12-24 16:27 | RADRPT ---
PROCEDURE: CT angiogram brain. CLINICAL INDICATION: Evaluate right A1 segment aneurysm TECHNIQUE: The study was performed utilizing a [employer] 64-slice multidetector CT scanner. 0 .6 axial sections were obtained from the skull base to the vertex with the use of 90 cc of Visipaque 320 intravenous contrast. Coronal and sagittal reformats were obtained. CTDIvol = 67.61 mGy and D LP = 450.28 mGycm. COMPARISON: MRA brain 12/23/2016 FINDINGS: The bilateral internal carotid arteries are patent and normal in caliber. Corresponding to the MRA findings within the anterior communicating artery at the junction with the LEFT A1 segment is an ovoid extraluminal projection of contrast media that is oriented pointing in a cephalad manner and tilted slightly towards the right of midline, the aneurysm estimated at 0.6 x 0 .3 x 0.4 cm in AP, transverse and cranial caudal dimensions respectively (series 2 image 149, series 601 image 37.). The neck of the aneurysm is estimated at 1.7 mm on axial image 150. There is norm al enhancement within the A2 segments which are symmetric and no additional aneurysm is demonstrated The bilateral middle cerebral arteries are patent and normal in caliber. The bilateral vertebral a rteries, basilar artery, and bilateral posterior cerebral arteries are patent and normal in caliber. No arteriovenous malformation is observed. RPTAT:HJJR IMPRESSION: 1. 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 The size of the aneurysm which po ints in a cephalad and slightly rightward manner is measured at 0.6 x 0.4 [address] angiography . 2. No additional intracranial aneurysms are demonstrated, the remainder of the examination is unrema rkable Physician Eloise Date Time Electronically viewed and signed by Physician Eloise on 12/24/2016 16:26 /
--- NOTE | 2016-12-24 17:19 | RADRPT ---
PROCEDURE: MR Cervical Spine noncontrast. CLINICAL INDICATION: Right-sided weakness. TECHNIQUE: Multiplanar multisequence noncontrast MRI of the cervical spine was performed. COMPARISON: There are no similar studies submitted for comparison. MRI of the brain from December. FINDINGS: There is straightening of the normal cervical lordosis. The vertebral body heights are maintained. There is normal alignment. There is no destructive osseous lesion. There is no abnormal bone marrow edema. There is disk desiccation from C2-C3 to C6-C7 with moderate to severe C3-C4, moderate to severe C4-C 5, mild to moderate C5-C6, and moderate C6-C7 disk space narrowing. The spinal cord is normal in caliber. The spinal cord is normal in signal. C2-C3 : There is no disc herniation, spinal canal, or foraminal stenosis. C3-C4 : There is a 1 mm broad-based disk osteophyte complex without spinal canal stenosis. There is mild bilateral facet arthropathy and bilateral uncovertebral hypertrophy causing severe bilateral f oraminal stenosis. This affects the exiting bilateral C4 nerve roots. C4-C5 : There is a 2 mm circumferential disk osteophyte complex with dorsal ligamentous hypertrophy mildly indenting the spinal cord with moderate spinal canal stenosis. There is bilateral uncoverteb ral hypertrophy causing severe bilateral foraminal stenosis. This affects the exiting bilateral C5 nerve roots. C5-C6 : There is a 1 mm broad-based disk osteophyte complex with dorsal ligamentous hypertrophy caus ing mild spinal canal stenosis. There is bilateral uncovertebral hypertrophy causing moderate to se luis bilateral foraminal stenosis. This likely affects the exiting bilateral C6 nerve roots. C6-C7 : There is a 2 mm broad-based disk osteophyte complex with dorsal ligamentous hypertrophy caus ing mild to moderate spinal canal stenosis is bilateral uncovertebral hypertrophy causing severe gail ateral foraminal stenosis. This affects the exiting bilateral C7 nerve roots. C7-T1 : There is no disc herniation, spinal canal, or foraminal stenosis. There is mild left facet a rthropathy. The paravertebral musculature are within normal limits. There is linear T2 hyperintensity within the left paracentral inferior janis suggestive of acute / re cent infarction which is better visualized than on the recent MRI of the brain. IMPRESSION: 1. Multilevel spinal canal stenosis most pronounced at C4-C5 where there is a circumferential disk osteophyte complex mildly indenting the spinal cord with moderate spinal canal stenosis. There is n o abnormal spinal cord edema. 2. Multilevel bilateral foraminal stenosis affecting the exiting bilateral C4, bilateral C5, bilate ral C6, and bilateral C7 nerve roots as detailed above. 3. No abnormal bone marrow edema. 4. Linear T2 hyperintensity within the left paracentral inferior janis suggestive of acute / recent infarction. This finding was discussed with nurse Sheri Cohen at 04:49 p.m. on December 24, 2016. Further findings as detailed above. RPTAT: PP .oJrdan Arriaga MD, MD Date Time Electronically viewed and signed by .Jordan Arriaga MD, MD on 12/24/2016 17:19 .F/
[2016-12-24] MEDS ORDERED: INSULIN GLARGINE [LANtus] 3 ML PEN SC SCH (21:00)
[2016-12-24] MEDS: FAMOTIDINE 20 MG TAB PO SCH (21:48)
[2016-12-24] MEDS: ATORVASTATIN 40 MG TAB PO SCH (21:48)
[2016-12-25] VITALS (10 sets, daily range): BP systolic 112–142; BP diastolic 56–66; PULSE 67–81; RESP 16–20
[2016-12-25] MEDS ORDERED: ACCUCHECK XX SCH (02:00)
[2016-12-25 07:29] LABS: BASOPHIL # 0.1 10^3/ul (0.0-0.1); BASOPHILS % 0.6 % (0.0-2.0); EOSINOPHILS # 0.2 10^3/ul (0.0-0.5); HEMATOCRIT 44.8 % (37.0-47.0); HEMOGLOBIN 14.3 g/dl (12.0-16.0); LYMPHOCYTES # 1.7 10^3/ul (0.8-2.9); LYMPHOCYTES % 20.5 % (15.0-51.0); MEAN CORPUSCULAR HEMOGLOBIN 21.2 pg (29.0-33.0); MEAN CORPUSCULAR VOLUME 66.3 fl (82.0-101.0); MEAN PLATELET VOLUME 8.9 fl (7.4-10.4); MONOCYTE # 0.8 10^3/ul (0.3-0.9); MONOCYTES % 9.1 % (0.0-11.0); NEUTROPHIL # 5.6 10^3/ul (1.6-7.5); NEUTROPHILS % 66.8 % (39.0-77.0); PLATELET COUNT 340 10^3/UL (140-440); RED BLOOD COUNT 6.76 10^6/ul (4.20-5.40); RED CELL DISTRIBUTION WIDTH 14.7 % (11.5-14.5); UNCORRECTED WBC 8.4 10^3/ul (4.8-10.8); WHITE BLOOD COUNT 8.4 10^3/ul (4.8-10.8)
[2016-12-25 07:31] LABS: CONDITION 1; LH ANALYZER COMMENTS 1
[2016-12-25 07:34] LABS: MAGNESIUM 2.1 mg/dl (1.7-2.5); PHOSPHORUS 4.1 mg/dl (2.5-4.9)
[2016-12-25 07:35] LABS: CREATININE 0.54 mg/dl (0.44-1.00)
[2016-12-25 07:36] LABS: CALCIUM 9.1 mg/dl (8.4-10.2)
[2016-12-25] MEDS: FAMOTIDINE 20 MG TAB PO SCH (08:45)
[2016-12-25] MEDS: NIFEdipine (XL) 60 MG TAB PO SCH (08:45)
[2016-12-25] MEDS: CHOLECALCIFEROL 1,000 UNIT TAB PO SCH (08:45)
[2016-12-25] MEDS: INSULIN ASPART [NOVOLOG] 3 ML PEN SC SCH ×4 (08:58→12:40)
--- NOTE | 2016-12-25 11:40 | CONS ---
Date/Time of Note Date/Time of Note DATE: 12/25/16 TIME: 11:37 Assessment/Plan Assessment/Plan Problems: (1) CVA (cerebral vascular accident) Status: Acute Qualifiers: Qualified Code: I63.9 - Cerebrovascular accident (CVA), unspecified mechanism Additional Assessment/Plan INCIDENTAL anterior communicating artery aneurysm. No urgent intervention indicated. This in fact may not require any intervention other than imaging follow up. The patient was advised to follow up with me after discharge to discuss the implications of this diagnosis and management. I gave her my business card. I will sign off, please re-c/s prn. Consultation Date/Type/Reason Admit Date/Time 12/23/16 Date of Consultation: Dec 25, 2016 Type of Consultation: neurosurgery Reason for Consultation acom aneurysm Hx of Present Illness 66 year old female with acute CVA and incidental small ACOM aneurysm No headache , no symptoms of SAH, so SAH on MRI/A. Eyes: no complaints ENT: no complaints Respiratory: no complaints Cardiovascular: no complaints Gastrointestinal: no complaints Genitourinary: no complaints Musculoskeletal: no complaints Skin: no complaints Neurologic: dizziness, focal-weakness Lymphatic: no complaints Psychological: no complaints Immunologic: no complaints Past Medical History Medical History: no pertinent history Past Surgical History Past Surgical Hx: other (Left knee surgery) Social History Alcohol Use: rarely Smoking Status: Never smoker Drug Use: none Exam/Review of Systems Vital Signs Vitals Vital Signs Date Time Temp Pulse Resp B/P Pulse Ox O2 Delivery O2 Flow Rate FiO2 12/25/16 09:06 67 12/25/16 07:14 98.4 18 112/56 95 12/23/16 21:00 Nasal Cannula 2.0 Intake and Output 12/24/16 12/24/16 12/25/16 15:00 23:00 07:00 Intake Total 320 ml Balance 320 ml Exam [id number]. Right hemiparesis. No nuchal rigidity. Results Result Diagram: 12/25/16 0600 12/25/16 0600 Results 24 hrs Laboratory Tests Test 12/24/16 11:52 12/24/16 17:10 12/24/16 21:33 12/25/16 01:37 Bedside Glucose 246 H 218 217 217 Test 12/25/16 06:00 12/25/16 07:56 Anion Gap 16 Basophils # 0.1 Basophils % 0.6 Blood Morphology Comment Blood Urea Nitrogen 18 Calcium Level 9.1 Carbon Dioxide Level 25 Chloride Level 102 Creatinine 0.54 Eosinophils # 0.2 Eosinophils % 3.0 Glucose Level 248 H Hematocrit 44.8 Hemoglobin 14.3 Lymphocytes # 1.7 Lymphocytes % 20.5 Magnesium Level 2.1 Mean Corpuscular Hemoglobin 21.2 L Mean Corpuscular Hemoglobin Concent 32.0 Mean Corpuscular Volume 66.3 L Mean Platelet Volume 8.9 Monocytes # 0.8 Monocytes % 9.1 Neutrophils # 5.6 Neutrophils % 66.8 Nucleated Red Blood Cells # 0.0 Nucleated Red Blood Cells % 0.0 Phosphorus Level 4.1 Platelet Count 340 Potassium Level 4.0 Red Blood Count 6.76 H Red Cell Distribution Width 14.7 H Sodium Level 139 White Blood Count 8.4 Bedside Glucose 207 Medications Medications Current Medications Lorazepam (Ativan) 0.5 mg Q8H PRN PO ANXIETY; Start 12/23/16 at 13:30 Ondansetron HCl (Zofran Inj) 4 mg Q6H PRN IV NAUSEA AND/OR VOMITING; Start 12/23 at 13:30 Acetaminophen (Tylenol Tab) 650 mg Q6H PRN PO PAIN LEVEL 1-3 OR FEVER; Start at 13:30 Acetaminophen/ Hydrocodone Bitart ([place] (5/325)) 1 tab Q6H PRN PO PAIN LEVEL 4 -6; Start 12/23/16 at 13:30 Morphine Sulfate (morphine) 2 mg Q4H PRN IV PAIN LEVEL 7-10; Start 12/23/16 at 13:30 Magnesium Hydroxide (Milk Of Mag) 30 ml DAILY PRN PO CONSTIPATION; Start at 13:30 Bisacodyl (Dulcolax) 5 mg DAILY PRN PO CONSTIPATION; Start 12/23/16 at 13:30 Hydralazine HCl (Apresoline) 10 mg Q6H PRN IV SBP>180 Last administered on 14:25; Admin Dose 10 MG; Start 12/23/16 at 13:30 Atorvastatin Calcium (Lipitor) 40 mg HS PO Last administered on 12/24/16 21:48 ; Admin Dose 40 MG; Start 12/23/16 at 21:00 Meclizine HCl (Antivert) 12.5 mg TID PRN PO Vertigo Last administered on 07:57; Admin Dose 12.5 MG; Start 12/23/16 at 13:30 Miscellaneous Information 1 ea NOTE XX ; Start 12/23/16 at 14:30 Glucose (Glutose) 15 gm Q15M PRN PO DECREASED GLUCOSE; Start 12/23/16 at 14:30 Glucose (Glutose) 22.5 gm Q15M PRN PO DECREASED GLUCOSE; Start 12/23/16 at 14:30 Dextrose (D50w Syringe) 25 ml Q15M PRN IV DECREASED GLUCOSE; Start 12/23/16 at 14:30 Dextrose (D50w Syringe) 50 ml Q15M PRN IV DECREASED GLUCOSE; Start 12/23/16 at 14:30 Glucagon (Glucagen) 1 mg Q15M PRN IM DECREASED GLUCOSE; Start 12/23/16 at 14:30 Glucose (Glutose) 15 gm Q15M PRN BUCCAL DECREASED GLUCOSE; Start 12/23/16 at 14: 30 Nifedipine (Procardia Xl) 60 mg BID PO Last administered on 12/25/16 08:45; Admin Dose 60 MG; Start 12/24/16 at 10:00 Insulin Glargine (Lantus) 6 unit HS SC Last administered on 12/24/16 21:48; Admin Dose 6 UNIT; Start 12/24/16 at 21:00 Diagnostic Test (Pha) (Accucheck) 1 ea 02 XX ; Start 12/25/16 at 02:00 Cholecalciferol (Vitamin D) 1,000 unit DAILY PO Last administered on 12/25/16 08:45; Admin Dose 1,000 UNIT; Start 12/24/16 at 10:30 Famotidine (Pepcid) 20 mg BID PO Last administered on 12/25/16 08:45; Admin Dose 20 MG; Start 12/24/16 at 21:00 TERRIE MACKENZIE MD Dec 25, 2016 11:40
--- NOTE | 2016-12-25 11:52 | CONS ---
Date/Time of Note Date/Time of Note DATE: 12/25/16 TIME: 11:46 Consult Date/Type/Reason Admit Date/Time Dec 23, 2016 at 20:02 Initial Consult Date 12/25/16 Type of Consultation: Neurology Reason for Consultation right sided weakness, acute left pontine infarct Ordering Provider: JUSTIN GORDILLO NP Subjective double vision, persistent right sided weakness Objective Vital Signs Date Time Temp Pulse Resp B/P Pulse Ox O2 Delivery O2 Flow Rate FiO2 12/25/16 09:06 67 12/25/16 07:14 98.4 18 112/56 95 12/23/16 21:00 Nasal Cannula 2.0 Intake and Output 12/24/16 12/24/16 12/25/16 15:00 23:00 07:00 Intake Total 320 ml Balance 320 ml awake and alert oriented x3 crying intermittently during examination no aphasia CN: CORBY, VFF, slight skew deviation on upgaze, mild right NLF flattening palate upgoing uvula midline scm/trap intact tongue is midline Motor: Left UE and LE 5/5 strength RUE weakness 3/5 mostly distally can lift anti-gravity when arm is supported she has 3/5 strength in flexion extension profound hand weakness RLE hip flexion 3/5 knee flexion extension 3/5 absent plantar flexion dorsiflexion Sensory: decreased to right face, right arm and right leg Reflexes: 2+ Biceps and Triceps, Brachioradialis, Patella 2+, absent AJ toes down Results/Medications Result Diagram: 12/25/16 0600 12/25/16 0600 Results 24 hrs Laboratory Tests Test 12/24/16 11:52 12/24/16 17:10 12/24/16 21:33 12/25/16 01:37 Bedside Glucose 246 H 218 217 217 Test 12/25/16 06:00 12/25/16 07:56 Anion Gap 16 Basophils # 0.1 Basophils % 0.6 Blood Morphology Comment Blood Urea Nitrogen 18 Calcium Level 9.1 Carbon Dioxide Level 25 Chloride Level 102 Creatinine 0.54 Eosinophils # 0.2 Eosinophils % 3.0 Glucose Level 248 H Hematocrit 44.8 Hemoglobin 14.3 Lymphocytes # 1.7 Lymphocytes % 20.5 Magnesium Level 2.1 Mean Corpuscular Hemoglobin 21.2 L Mean Corpuscular Hemoglobin Concent 32.0 Mean Corpuscular Volume 66.3 L Mean Platelet Volume 8.9 Monocytes # 0.8 Monocytes % 9.1 Neutrophils # 5.6 Neutrophils % 66.8 Nucleated Red Blood Cells # 0.0 Nucleated Red Blood Cells % 0.0 Phosphorus Level 4.1 Platelet Count 340 Potassium Level 4.0 Red Blood Count 6.76 H Red Cell Distribution Width 14.7 H Sodium Level 139 White Blood Count 8.4 Bedside Glucose 207 Medications Current Medications Lorazepam (Ativan) 0.5 mg Q8H PRN PO ANXIETY; Start 12/23/16 at 13:30 Ondansetron HCl (Zofran Inj) 4 mg Q6H PRN IV NAUSEA AND/OR VOMITING; Start 12/23 at 13:30 Acetaminophen (Tylenol Tab) 650 mg Q6H PRN PO PAIN LEVEL 1-3 OR FEVER; Start at 13:30 Acetaminophen/ Hydrocodone Bitart ([place] (5/325)) 1 tab Q6H PRN PO PAIN LEVEL 4 -6; Start 12/23/16 at 13:30 Morphine Sulfate (morphine) 2 mg Q4H PRN IV PAIN LEVEL 7-10; Start 12/23/16 at 13:30 Magnesium Hydroxide (Milk Of Mag) 30 ml DAILY PRN PO CONSTIPATION; Start at 13:30 Bisacodyl (Dulcolax) 5 mg DAILY PRN PO CONSTIPATION; Start 12/23/16 at 13:30 Hydralazine HCl (Apresoline) 10 mg Q6H PRN IV SBP>180 Last administered on 14:25; Admin Dose 10 MG; Start 12/23/16 at 13:30 Atorvastatin Calcium (Lipitor) 40 mg HS PO Last administered on 12/24/16 21:48 ; Admin Dose 40 MG; Start 12/23/16 at 21:00 Meclizine HCl (Antivert) 12.5 mg TID PRN PO Vertigo Last administered on 07:57; Admin Dose 12.5 MG; Start 12/23/16 at 13:30 Miscellaneous Information 1 ea NOTE XX ; Start 12/23/16 at 14:30 Glucose (Glutose) 15 gm Q15M PRN PO DECREASED GLUCOSE; Start 12/23/16 at 14:30 Glucose (Glutose) 22.5 gm Q15M PRN PO DECREASED GLUCOSE; Start 12/23/16 at 14:30 Dextrose (D50w Syringe) 25 ml Q15M PRN IV DECREASED GLUCOSE; Start 12/23/16 at 14:30 Dextrose (D50w Syringe) 50 ml Q15M PRN IV DECREASED GLUCOSE; Start 12/23/16 at 14:30 Glucagon (Glucagen) 1 mg Q15M PRN IM DECREASED GLUCOSE; Start 12/23/16 at 14:30 Glucose (Glutose) 15 gm Q15M PRN BUCCAL DECREASED GLUCOSE; Start 12/23/16 at 14: 30 Nifedipine (Procardia Xl) 60 mg BID PO Last administered on 12/25/16 08:45; Admin Dose 60 MG; Start 12/24/16 at 10:00 Insulin Glargine (Lantus) 6 unit HS SC Last administered on 12/24/16 21:48; Admin Dose 6 UNIT; Start 12/24/16 at 21:00 Diagnostic Test (Pha) (Accucheck) 1 ea 02 XX ; Start 12/25/16 at 02:00 Cholecalciferol (Vitamin D) 1,000 unit DAILY PO Last administered on 12/25/16 08:45; Admin Dose 1,000 UNIT; Start 12/24/16 at 10:30 Famotidine (Pepcid) 20 mg BID PO Last administered on 12/25/16 08:45; Admin Dose 20 MG; Start 12/24/16 at 21:00 Assessment/Plan Chief Complaint/Hosp Course 66 year old female with right sided weakness mostly involving distal muscle groups since this past Friday, incidental unruptured 6 x 3 x 3 mm aneurysm found in Right A1 and Right ACOM and MRI with extensive chronic microvascular changes. Review of MRI Brain and MRI C Spine shows restricted diffusion left inferiolateral janis and also seen well on T2 sequence of MRI Cervical Spine. Stroke etiology small vessel disease secondary to uncontrolled diabetes and hypertension. -appreciate neurosurgery consultation, patient will follow as outpatient for incidental aneurysm -requires aggressive control of risk factors for secondary stroke prevention, resumed ASA 81 mg, continue on Lipitor 40 mg daily qhs -insulin for optimal control diabetes, requires clinical educator consultation -DVT ppx -recommend acute rehab, discharge planning -discussed results with patient and daughter at bedside, outpatient neurology follow up Problems: JORGE VELÁZQUEZ MD Dec 25, 2016 11:52
[2016-12-25] MEDS ORDERED: ASPIRIN (EC) 81 MG TAB PO ONE (12:00)
--- NOTE | 2016-12-25 13:14 | PN ---
Date/Time of Note Date/Time of Note DATE: 12/25/16 TIME: 13:09 Assessment/Plan VTE Prophylaxis VTE Prophylaxis Intervention: SCD's Lines/Catheters IV [facility]ter Type (from [facility]): Peripheral IV Urinary Cath still in place: No Assessment/Plan Chief Complaint/Hosp Course 1. Acute left pontine infarct. Continue aspirin and statins. Continue physical therapy and occupational therapy. Neurology following. 2. Incidental finding of cerebral aneurysm. 6 x 3 x 3 mm vascular outpouching at the junction of the right A1 segment and anterior communicating artery. Seen and evaluated by neurosurgery. No need for any immediate surgical intervention. 3. Essential hypertension. Continue routine antihypertensives. Continue PRN antihypertensives. 4. Type 2 diabetes mellitus. New onset versus newly diagnosed. Hemoglobin A1c 11.5. The patient currently on sliding scale insulin along with basal insulin and pre-meal insulin. Will involve natural resources extension educator. 5 . Dyslipidemia. The patient currently on statins which will be continued. 6. Vitamin D deficiency. Continue vitamin D supplements. 7. Fluids, electrolytes, and nutrition. Carbohydrate controlled, low- cholesterol diet. 8. DVT prophylaxis with bilateral sequential compression devices. 9. Gastrointestinal prophylaxis. Histamine 2 receptor blockers. 10. Plan. Continue current management. Acute rehabilitation evaluation ordered. Case discussed with Dr. Domínguez. The case was discussed with neurosurgery. Problems: Subjective 24 Hr Interval Summary Free Text/Dictation Complains of diplopia. Exam/Review of Systems Vital Signs Vitals Vital Signs Date Time Temp Pulse Resp B/P Pulse Ox O2 Delivery O2 Flow Rate FiO2 12/25/16 12:28 72 12/25/16 11:49 97.8 18 127/58 98 12/23/16 21:00 Nasal Cannula 2.0 Intake and Output 12/24/16 12/24/16 12/25/16 15:00 23:00 07:00 Intake Total 320 ml Balance 320 ml Exam General: Adequately build 66 year-old female lying in bed in no apparent distress. HEENT: Normocephalic, atraumatic. Eyes: Anicteric sclerae, conjunctivae clear. ENT: Nasal septum midline, oral mucosa moist. Neck supple, no JVD noticed. Respiratory: Bilaterally clear breath sounds. No use of accessory muscles of respiration. No adventitious breath sounds. Cardiovascular: S1, S2 heard. No murmurs or gallops. Abdomen: Soft, nontender, and nondistended. Bowel sounds positive in all 4 quadrants. Genitourinary: Deferred. Extremities: No cyanosis, no clubbing, no edema. Peripheral pulses palpable. Neurologic: The patient is awake, alert, and oriented. Right hemiparesis. Right upper extremity 2-3/5 and right lower extremity 2-3/5 strength. Skin: Normal skin turgor. No skin rashes. Results Result Diagram: 12/25/16 0600 12/25/16 0600 Results 24 hrs Laboratory Tests Test 12/24/16 17:10 12/24/16 21:33 12/25/16 01:37 12/25/16 06:00 Bedside Glucose 218 217 217 Anion Gap 16 Basophils # 0.1 Basophils % 0.6 Blood Morphology Comment Blood Urea Nitrogen 18 Calcium Level 9.1 Carbon Dioxide Level 25 Chloride Level 102 Creatinine 0.54 Eosinophils # 0.2 Eosinophils % 3.0 Glucose Level 248 H Hematocrit 44.8 Hemoglobin 14.3 Lymphocytes # 1.7 Lymphocytes % 20.5 Magnesium Level 2.1 Mean Corpuscular Hemoglobin 21.2 L Mean Corpuscular Hemoglobin Concent 32.0 Mean Corpuscular Volume 66.3 L Mean Platelet Volume 8.9 Monocytes # 0.8 Monocytes % 9.1 Neutrophils # 5.6 Neutrophils % 66.8 Nucleated Red Blood Cells # 0.0 Nucleated Red Blood Cells % 0.0 Phosphorus Level 4.1 Platelet Count 340 Potassium Level 4.0 Red Blood Count 6.76 H Red Cell Distribution Width 14.7 H Sodium Level 139 White Blood Count 8.4 Test 12/25/16 07:56 12/25/16 11:52 Bedside Glucose 207 289 H Medications Medications Current Medications Lorazepam (Ativan) 0.5 mg Q8H PRN PO ANXIETY; Start 12/23/16 at 13:30 Ondansetron HCl (Zofran Inj) 4 mg Q6H PRN IV NAUSEA AND/OR VOMITING; Start 12/23 at 13:30 Acetaminophen (Tylenol Tab) 650 mg Q6H PRN PO PAIN LEVEL 1-3 OR FEVER; Start at 13:30 Acetaminophen/ Hydrocodone Bitart ([place] (5/325)) 1 tab Q6H PRN PO PAIN LEVEL 4 -6; Start 12/23/16 at 13:30 Morphine Sulfate (morphine) 2 mg Q4H PRN IV PAIN LEVEL 7-10; Start 12/23/16 at 13:30 Magnesium Hydroxide (Milk Of Mag) 30 ml DAILY PRN PO CONSTIPATION; Start at 13:30 Bisacodyl (Dulcolax) 5 mg DAILY PRN PO CONSTIPATION; Start 12/23/16 at 13:30 Hydralazine HCl (Apresoline) 10 mg Q6H PRN IV SBP>180 Last administered on 14:25; Admin Dose 10 MG; Start 12/23/16 at 13:30 Atorvastatin Calcium (Lipitor) 40 mg HS PO Last administered on 12/24/16 21:48 ; Admin Dose 40 MG; Start 12/23/16 at 21:00 Meclizine HCl (Antivert) 12.5 mg TID PRN PO Vertigo Last administered on 07:57; Admin Dose 12.5 MG; Start 12/23/16 at 13:30 Miscellaneous Information 1 ea NOTE XX ; Start 12/23/16 at 14:30 Glucose (Glutose) 15 gm Q15M PRN PO DECREASED GLUCOSE; Start 12/23/16 at 14:30 Glucose (Glutose) 22.5 gm Q15M PRN PO DECREASED GLUCOSE; Start 12/23/16 at 14:30 Dextrose (D50w Syringe) 25 ml Q15M PRN IV DECREASED GLUCOSE; Start 12/23/16 at 14:30 Dextrose (D50w Syringe) 50 ml Q15M PRN IV DECREASED GLUCOSE; Start 12/23/16 at 14:30 Glucagon (Glucagen) 1 mg Q15M PRN IM DECREASED GLUCOSE; Start 12/23/16 at 14:30 Glucose (Glutose) 15 gm Q15M PRN BUCCAL DECREASED GLUCOSE; Start 12/23/16 at 14: 30 Nifedipine (Procardia Xl) 60 mg BID PO Last administered on 12/25/16 08:45; Admin Dose 60 MG; Start 12/24/16 at 10:00 Insulin Glargine (Lantus) 6 unit HS SC Last administered on 12/24/16 21:48; Admin Dose 6 UNIT; Start 12/24/16 at 21:00 Diagnostic Test (Pha) (Accucheck) 1 ea 02 XX ; Start 12/25/16 at 02:00 Cholecalciferol (Vitamin D) 1,000 unit DAILY PO Last administered on 12/25/16 08:45; Admin Dose 1,000 UNIT; Start 12/24/16 at 10:30 Famotidine (Pepcid) 20 mg BID PO Last administered on 12/25/16 08:45; Admin Dose 20 MG; Start 12/24/16 at 21:00 JUSTIN GORDILLO NP Dec 25, 2016 13:14
--- NOTE | 2016-12-25 13:59 | PDOCDIS ---
Discharge Instructions DIAGNOSIS Discharge Diagnosis: Acute left pontine infarct. CONDITION Patient Condition: Stable HOME CARE INSTRUCTIONS: Special Diet: Carbohydrate controlled, low-cholesterol OTHER ORDERS: Other Orders: 1. Discharge to [facility]. 2. Carbohydrate controlled, low-cholesterol diet. 3. Medications as per medication list. 4. Activities as per the rehabilitation team. JUSTIN GORDILLO NP Dec 25, 2016 13:59
[2016-12-25] MEDS ORDERED: DEXT50DI2 IV (14:02)
[2016-12-25] MEDS ORDERED: ACET325T33 PO (14:02)
[2016-12-25] MEDS ORDERED: CHOL100062 PO (14:02)
[2016-12-25] MEDS ORDERED: Accucheck XX (14:02)
[2016-12-25] MEDS ORDERED: ATOR40TA68 PO (14:02)
[2016-12-25] MEDS ORDERED: BISA5TAB6 PO (14:02)
[2016-12-25] MEDS ORDERED: NOVO3I SC (14:03)
[2016-12-25] MEDS ORDERED: GLUC1VIA3 IM (14:03)
[2016-12-25] MEDS ORDERED: HYDR-3498 PO (14:03)
[2016-12-25] MEDS ORDERED: UDMOM PO (14:03)
[2016-12-25] MEDS ORDERED: MECL12.574 PO (14:03)
[2016-12-25] MEDS ORDERED: DEXT37.54 PO (14:03)
[2016-12-25] MEDS ORDERED: NIFE60TA11 PO (14:03)
[2016-12-25] MEDS ORDERED: DEXT37.54 BUCCAL (14:03)
[2016-12-25] MEDS ORDERED: LORA-441 PO (14:03)
[2016-12-25] MEDS ORDERED: LANT3I SC (14:03)
[2016-12-25] MEDS ORDERED: FAMO20TA18 PO (14:03)
--- NOTE | 2016-12-25 16:26 | DS ---
DATE OF ADMISSION: 12/23/2016 DATE OF DISCHARGE: 12/25/2016 (Transferred to [facility]). DIAGNOSES: 1. Acute left pontine infarct. 2. Incidental finding of cerebral aneurysm. 3. Essential hypertension. 4. Type 2 diabetes mellitus. 5. Dyslipidemia. 6. Vitamin D deficiency. CONSULTATIONS: 1. Dr. Naina Newby, Neurology. 2. Dr. Jose Ford, Neurosurgery. HOSPITAL COURSE: This is a 66-year-old [place] female who denied any significant past medical history and came to the emergency room at [facility] because of complaint of sudden onset of right-sided weakness and dizziness. As per the patient, she went to [facility] emergency room on 12/21/2016 because of similar complaints. At that time, the patient was discharged home on oral antihistamines and antihypertensives. The patient denied any prior diagnosis of hypertension. She denied any prior history of diabetes. In the emergency room, the patient was noticed to have right-sided hemiparesis. However, the patient was outside the window time for considering any tPA. The patient underwent a brain CT scan that was negative for any acute intracranial findings. The patient was treated with aspirin in the emergency room. The patient was admitted to inpatient telemetry floor. A neurology consult was called. The patient was started on aspirin and statins. The patient's blood pressure was noted to be elevated. However, permissible hypertension was allowed because of suspected stroke. The patient underwent a brain MRI that showed chronic small vessel ischemic changes; however, the brain MRA showed a 6 x 3 x 3 mm vascular outpouching at the junction of the right A1 segment in anterior communicating artery, most compatible with intracranial aneurysm. Upon finding out about this aneurysm, the patient's aspirin was put on hold. A neurosurgery consult was called as per the recommendations of neurology. Neurosurgery insisted that the aneurysm is very small and could not have caused right hemiparesis. Consequently, the patient underwent a cervical spine MRI that showed left pontine infarct. Hence, it was confirmed that the patient's symptomatology was most probably secondary to the left pontine infarct. The patient was seen by neurosurgery and recommended no surgical intervention for her underlying aneurysm. The patient was restarted on aspirin. The patient was noticed to have uncontrolled hypertension. The patient was started on routine antihypertensives after the period of permissible hypertension. The patient was also noticed to have hyperglycemia. The patient denied any history of diabetes mellitus. However, the patient's hemoglobin A1c was found to be 11.5. Therefore, the patient was started on sliding scale insulin along with basal insulin and premeal insulin. The patient was also noticed to have significant dyslipidemia. The patient was already started on statins for her underlying stroke. The patient was also noticed to have vitamin D deficiency. She was initiated on vitamin D supplements. The patient underwent physical therapy, speech therapy and occupational therapy evaluation. Physical therapy recommended acute rehabilitation. Hence, acute rehabilitation evaluation was ordered. The patient was accepted to acute rehabilitation unit. The patient will be discharged to acute rehabilitation unit for further rehabilitation. DISCHARGE PLAN: The patient will be discharged to acute rehabilitation unit. The patient will follow a carbohydrate controlled low cholesterol diet. The patient will take medications as per medication list. Activities will be as per the discretion of the rehabilitation team. Internal medicine/hospitalist team will be following the patient in house. CONDITION AT DISCHARGE: Stable. DISCHARGE MEDICATIONS: 1. Tylenol 650 mg p.o. q.6h. p.r.n. fever. 2. Atorvastatin 40 mg p.o. at bedtime. 3. Dulcolax 5 mg p.o. daily p.r.n. constipation. 4. Vitamin D3 1000 units p.o. daily. 5. Famotidine 20 mg p.o. b.i.d. 6. [place] 5/325 one tablet p.o. q.6h. p.r.n. pain. 7. Insulin sliding scale. 8. NovoLog insulin 3 units subcutaneously with meals. 9. Lantus insulin 10 units subcutaneously at bedtime. 10. Ativan 0.5 mg p.o. q.8h. p.r.n. anxiety. 11. Milk of magnesia 30 mL p.o. daily p.r.n. constipation. 12. Meclizine 12.5 mg p.o. t.i.d. p.r.n. vertigo. 13. Nifedipine 60 mg p.o. b.i.d. PERTINENT LABORATORY AND DIAGNOSTIC DATA: 1. 2D echocardiogram. Ejection fraction of 65%. Stage I diastolic dysfunction. 2. Brain CT scan: No acute intracranial abnormality. 3. Carotid Doppler study. No evidence for hemodynamically significant stenosis in the bilateral internal carotid arteries. 4. Brain MRI with MRA. A 6 x 3 x3 mm vascular outpouching at the junction of the A1 segment and anterior communicating artery, most compatible with intracranial aneurysm. 5. Chest x-ray. Aortic atherosclerosis. Mild right basilar atelectasis. 6. Head CTA. Saccular aneurysm originating from the anterior communicating artery at the junction of the left A1 segment of the anterior cerebral artery measuring 0.6 x 0.4 x 0.3 cm. 7. Cervical spine MRI. Multilevel spinal canal stenosis, most pronounced at C4 -C5. Multilevel bilateral foraminal stenosis exiting bilateral C4, bilateral C5 , bilateral C6 and bilateral C7 nerve roots. T2 hyperintensity within the left paracentral inferior janis, suggestive of acute/recent infarction. 8. Latest CBC: WBC 8.4, hemoglobin 14.3, hematocrit 44.2, platelet count 343. 9. Latest BMP: Sodium 139, potassium 4.0, chloride 100, carbon dioxide 25, anion gap 16, BUN 18, creatinine 0.54, glucose 248, calcium 9.1, phosphorus 4.1 , magnesium 2.1. 10. Hemoglobin A1c 11.5. 11. Fasting lipid panel: Triglycerides 208, total cholesterol 242, LDL 158, HDL 42. 12. Vitamin D level 19. 15. Urine drug toxicology negative. At this time, we would like to thank all the consultants for seeing the patient and providing clinical recommendations. The case and management of this patient was fully discussed with Dr. Garrett. Approximately 40 minutes was spent on coordinating the discharge on this patient. JUSTIN GARRETT MD, AM/BRII Conf#: [id number] DID#: [id number] [facility]
[2016-12-25] MEDS ORDERED: INSULIN ASPART [NOVOLOG] 3 ML PEN SC SCH (17:55)
[2016-12-25] MEDS ORDERED: INSULIN GLARGINE [LANtus] 3 ML PEN SC SCH (21:00)
== END 2016-12-25 17:00 | DRG 65 ==
LOC: E/R 08:44 → TEL 20:02
PROVIDERS: ADMIT Family Medicine; ATTEND Family Medicine
DX: I63.9 Cerebral infarction, unspecified (principal); G81.91 Hemiplegia, unspecified affecting right dominant side; I67.1 Cerebral aneurysm, nonruptured; E11.65 Type 2 diabetes mellitus with hyperglycemia; I10 Essential (primary) hypertension; E55.9 Vitamin D deficiency, unspecified
CPT/HCPCS: 36415; 70450; 70496; 70544; 70551; 71010; 72141; 73560; 80048; 80053; 80061; 80307; 81001; 81003; 82550; 82553; 82652; 82962; 83036; 83735; 84100; 84439; 84443; 84484; 85025; 85610; 85730; 92610; 93005; 93306; 93880; 96372; 96374; 97110; 97116; 97163; 97530; J0360; J1815; J7030; Q9967

== ENCOUNTER 2016-12-25 16:27 | Inpatient (IN) | payer MEDICARE, BC ==
[~2016-12-25] VITALS: Ht 157.5 cm; Wt 60.0 kg
[~2016-12-25 16:27] MED LIST: ACET325T33 PO; ATOR40TA68 PO; Accucheck XX; BISA5TAB6 PO; CHOL100062 PO; DEXT37.54 BUCCAL; DEXT37.54 PO; DEXT50DI2 IV; FAMO20TA18 PO; GLUC1VIA3 IM; HYD25 PO; HYDR-3498 PO; LANT3I SC; LORA-441 PO; MECL-77 PO; MECL12.574 PO; NIFE60TA11 PO; NOVO3I SC; UDMOM PO
[2016-12-25 17:30] VITALS: BP 116/64; PULSE 70; RESP 18
[2016-12-25] MEDS ORDERED: GLUCOSE GEL 15 GRAM TUBE BUCCAL PRN (19:00)
[2016-12-25] MEDS ORDERED: BISACODYL (EC) 5 MG TAB PO PRN (19:00)
[2016-12-25] MEDS ORDERED: MECLIZINE 12.5 MG TAB PO PRN (19:00)
[2016-12-25] MEDS ORDERED: DEXTROSE 50% 50 ML SYRINGE IV PRN ×2 (19:00)
[2016-12-25] MEDS ORDERED: LORAZEPAM 0.5 MG TAB PO PRN (19:00)
[2016-12-25] MEDS ORDERED: NACL 0.9% 3 ML SYG IV SCH (19:00)
[2016-12-25] MEDS ORDERED: MAGNESIUM HYDROXIDE 30ML CUP PO PRN (19:00)
[2016-12-25] MEDS ORDERED: GLUCOSE GEL 15 GRAM TUBE PO PRN ×2 (19:00)
[2016-12-25] MEDS ORDERED: GLUCAGON 1 MG INJ IM PRN (19:00)
[2016-12-25] MEDS ORDERED: ACETAMINOPHEN 325 MG TAB PO PRN (19:00)
[2016-12-25] MEDS ORDERED: INSULIN GLARGINE [LANtus] 3 ML PEN SC SCH ×2 (21:00→21:08)
[2016-12-25] MEDS: NIFEdipine (XL) 60 MG TAB PO SCH (21:17)
[2016-12-25] MEDS: FAMOTIDINE 20 MG TAB PO SCH (21:17)
[2016-12-25] MEDS: ATORVASTATIN 40 MG TAB PO SCH (21:17)
[2016-12-25] MEDS: INSULIN ASPART [NOVOLOG] 3 ML PEN SC SCH ×2 (21:20)
[2016-12-25 22:05] VITALS: BP 132/69; RESP 18
[2016-12-25 23:00] VITALS: Ht 157.5 cm; Wt 60.0 kg
[2016-12-26] MEDS: ACCUCHECK XX SCH (02:00)
[2016-12-26 04:12] LABS: ADD UMIC YES; URINE BILIRUBIN (Dip) NEGATIVE (NEGATIVE); URINE BLOOD (Dip) NEGATIVE (NEGATIVE); URINE COLOR LT. YELLOW (YELLOW); URINE KETONES (Dip) NEGATIVE (NEGATIVE); URINE LEUKOCYTE ESTERASE (Dip) 2+ (NEGATIVE); URINE NITRITE (Dip) NEGATIVE (NEGATIVE); URINE TOTAL PROTEIN (Dip) NEGATIVE (NEGATIVE); URINE UROBILINOGEN (Dip) 0.2 E.U./dL (0.1-1.0)
[2016-12-26] MEDS ORDERED: LACTULOSE 30ML CUP PO PRN (04:30)
[2016-12-26 04:37] LABS: URINE RBCS 0-2 /HPF (0)
[2016-12-26 04:38] LABS: BACTERIA,URINE FEW; SQUAMOUS EPITHELIAL CELL,UR FEW
[2016-12-26 07:08] LABS: BASOPHIL # 0.1 10^3/ul (0.0-0.1); BASOPHILS % 0.6 % (0.0-2.0); EOSINOPHILS # 0.5 10^3/ul (0.0-0.5); EOSINOPHILS % 5.6 % (0.0-7.0); HEMOGLOBIN 14.7 g/dl (12.0-16.0); LYMPHOCYTES # 2.2 10^3/ul (0.8-2.9); LYMPHOCYTES % 23.9 % (15.0-51.0); MEAN CORPUSCULAR HEMOGLOBIN 21.2 pg (29.0-33.0); MEAN CORPUSCULAR HGB CONC 31.9 g/dl (32.0-37.0); MEAN CORPUSCULAR VOLUME 66.6 fl (82.0-101.0); MEAN PLATELET VOLUME 9.1 fl (7.4-10.4); MONOCYTE # 0.7 10^3/ul (0.3-0.9); MONOCYTES % 7.3 % (0.0-11.0); NEUTROPHIL # 5.7 10^3/ul (1.6-7.5); NEUTROPHILS % 62.6 % (39.0-77.0); PLATELET COUNT 333 10^3/UL (140-440); RED BLOOD COUNT 6.91 10^6/ul (4.20-5.40); RED CELL DISTRIBUTION WIDTH 14.8 % (11.5-14.5); UNCORRECTED WBC 9.1 10^3/ul (4.8-10.8); WHITE BLOOD COUNT 9.1 10^3/ul (4.8-10.8)
[2016-12-26 07:21] LABS: CONDITION 1; LH ANALYZER COMMENTS 1
[2016-12-26 07:22] LABS: ALBUMIN 3.6 g/dl (3.3-4.9)
[2016-12-26 07:23] LABS: POTASSIUM 3.9 mmol/L (3.5-5.1)
[2016-12-26 07:25] LABS: ALBUMIN/GLOBULIN RATIO 1.05; BILIRUBIN,INDIRECT 0.4 mg/dl (0-1.1); BILIRUBIN,TOTAL 0.4 mg/dl (0.2-1.3); CREATININE 0.55 mg/dl (0.44-1.00)
[2016-12-26 07:26] LABS: CALCIUM 8.9 mg/dl (8.4-10.2)
[2016-12-26 08:00] VITALS: BP 122/57; PULSE 75; RESP 18
[2016-12-26] MEDS: INSULIN ASPART [NOVOLOG] 3 ML PEN SC SCH ×8 (09:01→22:35)
[2016-12-26] MEDS: FAMOTIDINE 20 MG TAB PO SCH ×2 (09:02→22:04)
[2016-12-26] MEDS: CHOLECALCIFEROL 1,000 UNIT TAB PO SCH (09:02)
[2016-12-26] MEDS: DOCUSATE SODIUM 100 MG CAP PO SCH ×2 (09:02→22:05)
[2016-12-26] MEDS: NIFEdipine (XL) 60 MG TAB PO SCH ×2 (09:03→22:04)
--- NOTE | 2016-12-26 12:55 | HP ---
DATE OF ADMISSION: 12/25/2016 HOG PUSHER: Acute rehab physician. CHIEF COMPLAINT: Right upper extremity and right lower extremity weakness. HISTORY OF PRESENT ILLNESS: This is a very pleasant 66-year-old female with no significant past med ical history, who was brought into the emergency room at [facility] on 12/23/2016 secondary to having right-sided weakness. The CT of the brain was negative for acute finding. MRI of the brain was obtained which showed acute left pontine infarct and there was incidental finding o f cerebral aneurysm. The patient was seen and evaluated by neurology and neurosurgery during the co urse of the hospitalization. She was started on aspirin, statin, nifedipine for her blood pressure and meclizine for her dizziness. After evaluation by the physical therapy during the course of hosp italization, the patient was found to be a good candidate for acute rehabilitation and was transferr ed to acute rehab for further evaluation and physical therapy. At this time, patient denies having any headache, dizziness, lightheadedness. No chest pain, palpitations, edema, orthopnea. No change in visual acuity, diplopia, photophobia. No neck pain, no restricted range of motion. No shortnes s of breath. No heat and cold intolerance. No abdominal pain. No nausea, vomiting, diarrhea. The patient continues to have right upper and lower extremity weakness. Otherwise, the other 12 review of systems has been found to be negative. PAST MEDICAL/SURGICAL HISTORY: 1. Acute left pontine infarct. 2. Incidental finding of cerebral aneurysm. 3. Essential hypertension. 4. Diabetes mellitus type 2. 5. Dyslipidemia. 6. Vitamin D deficiency. MEDICATIONS: 1. Tylenol. 2. [place]. 3. Milk of magnesia. 4. Dulcolax. 5. Lipitor. 6. Nifedipine. 7. Vitamin D. 8. Pepcid. 9. Insulin sliding scale. 10. Lorazepam 11. Meclizine. 12. Lantus. 13. Colace. 14. Aspirin 81 mg. ALLERGIES: NO KNOWN DRUG ALLERGIES. FAMILY HISTORY: Positive for hypertension, diabetes mellitus. SOCIAL HISTORY: Negative x3 for smoking, alcohol, illicit drugs. Lives at home with her . REVIEW OF SYSTEMS: As above per HPI, otherwise 12 review of systems was found to be negative. PHYSICAL EXAMINATION: VITAL SIGNS: Temperature 97.9, pulse 75, respirations 18, blood pressure 122/57, oxygen saturation 97% in room air. GENERAL APPEARANCE: The patient is lying in bed comfortably without any distress. She is awake, al ert, oriented. She is able to answer my questions properly. EYES AND ENT: Conjunctivae and lids are normal. Pupils are normal. Extraocular normal. Hearing g rossly normal. Lips are normal. Oral mucosa is moist. NECK: Supple. Trachea is midline. No lymphadenopathy. RESPIRATORY: Effort is normal. Clear to auscultation bilaterally. CARDIOVASCULAR: Normal S1, S2. Regular rhythm and rate. No murmur, no bruits, no edema. Peripher al pulses, radial pulses palpable. Capillary refill is normal. CHEST: Normal expansion of thorax during inspiration. GASTROINTESTINAL: Abdomen is soft, nontender, not distended. Bowel sounds present. No guarding, n o rebound. GENITOURINARY: Deferred. MUSCULOSKELETAL: Left upper and lower extremities within normal limits. Right upper extremity stre ngth is 3/5, right lower extremity strength is 3/5. Sensory is intact. NEUROLOGIC: Cranial nerves II through XII are grossly intact. PSYCHIATRIC: She is awake, alert, oriented. LABORATORY WORK AND IMAGING: WBC 9.1, hemoglobin 14.7, hematocrit 46.6, MCV 66.6, platelets 333. S odium 140, potassium 3.9, chloride 103, bicarbonate 24, BUN 21, creatinine 0.55, glucose 195, calciu m 8.9. Alkaline phosphatase 133. Triglyceride 208, total cholesterol 242, LDL 158, HDL 42. TSH is 0.22, FT4 is 1.65. ASSESSMENT AND PLAN: 1. Acute left pontine infarct. The patient was seen and evaluated by neurology during the course o f the hospitalization and has been started on aspirin, statin. Continue to monitor and treat blood pressure with nifedipine. Continue physical therapy and occupational therapy. 2. Incidental finding of cerebral aneurysm, stable. The patient was seen and evaluated by neurossamanta sanchez during the course of the hospitalization. Will plan to follow up with neurosurgery as outpatie nt. 3. Essential hypertension, well controlled on nifedipine. 4. Diabetes mellitus type 2. Continue Lantus, insulin sliding scale, low-carbohydrate diet. 5. Dyslipidemia. Continue statin. 6. Vitamin D deficiency. Continue vitamin D supplementation. 7. For deep venous thrombosis prophylaxis, the patient is ambulating and has been started on sequen tial compression devices. Refrain from using any pharmacologic DVT prophylaxis at this time seconda ry to incidental finding of cerebral aneurysm. 8. For gastrointestinal prophylaxis, on Pepcid. 9. We will continue to monitor patient closely. Further recommendations, management and treatment as per clinical course. Total amount of time was spent for evaluation of patient and admission workup 40 minutes. Dictated By: ALMA HURST MD PN/NTS Conf#: [id number] DID#: [id number]
--- NOTE | 2016-12-26 13:30 | CONS ---
DATE OF ADMISSION: 12/25/2016 DATE OF CONSULTATION: TYPE OF CONSULTATION: Rehabilitation post-admission physician evaluation REHABILITATION IMPAIRMENT CATEGORY: Left pontine infarct cerebrovascular accident with right-sided weakness in addition to ANA intracranial aneurysm. ACTIVE COMORBIDITIES: 1. Dysphagia. 2. Hypertension. 3. Uncontrolled diabetes mellitus. 4. Cervical spinal stenosis. 5. Impairments in self-care, mobility and cognition. HISTORY OF PRESENT ILLNESS: The patient is a pleasant 66-year-old female with a past history of hy pertension, who was admitted to [facility] with right-sided weakness. The patient initially presented to [facility] on 12/21/2016 with dizziness and weakness and she report edly was discharged home on oral antiemetics and antihypertensives. The patient was noted to have r eturn of dizziness and weakness. Head CT was negative for bleed. An MRI did demonstrate left ponti ne infarct in addition to ANA intracranial aneurysm. The patient was followed closely by neurology and felt not need surgical intervention at this time. The patient will follow up as an outpatient w ith regard to neurosurgery. The patient's hospital course also notable for dysphagia in addition to significant impairments in self-care and mobility as compared to baseline. The patient has been cl eared to transfer to the rehabilitation unit for comprehensive interdisciplinary rehab care. Of not e, the patient also was noted to have significant multilevel spinal canal stenosis most prominent at C4-5 with osteophyte indenting the spinal cord, moderate spinal canal stenosis. FUNCTIONAL HISTORY: Prior to recent events, she was independent in self-care tasks and mobility. C urrently, she is maximal assist for self-care activities and mobility tasks. I have reviewed the preadmission screen and patient's current functional status is consistent with t he preadmission screen. SOCIAL HISTORY: The patient lives at home and hopes to return there upon discharge. PAST MEDICAL HISTORY: Hypertension. CURRENT MEDICATIONS: 1. Lipitor 40 mg p.o. at bedtime. 2. Vitamin D____. 3. Insulin sliding scale. 4. [place] p.r.n. 5. NovoLog 3 units subcutaneous q.a.c. and at bedtime. 6. Lantus 9 units subq at bedtime. 7. Antivert p.r.n. 8. Procardia-XL 60 mg b.i.d. 9. Aspirin. ALLERGIES: THE PATIENT WITH NO KNOWN DRUG ALLERGIES. PHYSICAL EXAMINATION: VITAL SIGNS: The patient is currently afebrile with stable vital signs. HEENT: Extraocular motion intact. Oropharynx clear. NECK: Supple. LUNGS: Clear anteriorly. CARDIAC: S1, S2. ABDOMEN: Soft, nontender, positive bowel sounds. NEUROLOGIC: She is awake and alert and oriented to person and hospital and date. She can follow si mple 1-step commands. She demonstrates good strength in the left upper and lower extremity. She serrato s 2/5 right upper extremity strength and 3+/5 right lower extremity strength, but significantly impa ired dorsiflexion. PLAN: The patient has been admitted for comprehensive interdisciplinary acute rehab and is anticipa haley to tolerate 3 hours of daily therapy in divided doses for at least 5/7 days a week. Treatment p viktor will include: 1. Physical therapy to focus on bed mobility, transfers, and household ambulation with the goal of having the patient reach standby assist level. 2. Occupational therapy to focus on hygiene, grooming, dressing, bathing, and toileting activities with the goal of having the patient reach standby assist level. 3. Rehabilitation nursing for carryover of therapeutic interventions, the goal of continent of kina l and bladder, and the goal of patient and family education with regard to the aforementioned issues . 4. Speech therapy for full cognitive assessment and retraining in addition to dysphagia management with the goal of having the patient return to baseline cognition and meet nutritional needs by mouth . ESTIMATED LENGTH OF STAY: 14 days. DISPOSITION GOAL: Home. REHABILITATION BARRIER: Dysphagia. INTERVENTION FOR BARRIER: Speech therapy. I acknowledge that I performed a full physical examination on this patient within 24 hours of admiss ion to the rehabilitation unit. I believe the patient is a good candidate for comprehensive interdi sciplinary rehab care and is anticipated to make reasonable goals in a reasonable period of time as outlined above. Dictated By: AURE HUMPHRIES/BRII Conf#: [id number] DID#: [id number]
[2016-12-26] MEDS: ASPIRIN 81 MG TAB PO SCH (19:55)
[2016-12-26] MEDS: metFORMIN 500 MG TAB PO SCH (19:55)
[2016-12-26 20:00] VITALS: BP 116/61; RESP 18
[2016-12-26] MEDS ORDERED: INSULIN GLARGINE [LANtus] 3 ML PEN SC SCH (21:00)
[2016-12-26 22:00] VITALS: BP 115/58; PULSE 80
[2016-12-26] MEDS: ATORVASTATIN 40 MG TAB PO SCH (22:04)
[2016-12-26] MEDS: SENNA TAB PO SCH (22:07)
[2016-12-27 00:15] VITALS: BP 143/77; PULSE 75
[2016-12-27] MEDS ORDERED: ONDANSETRON 4 MG INJ IV PRN (00:30)
[2016-12-27] MEDS: ACCUCHECK XX SCH (02:00)
[2016-12-27 08:00] VITALS: BP 121/58; PULSE 74
[2016-12-27] MEDS: DOCUSATE SODIUM 100 MG CAP PO SCH ×2 (08:15→20:51)
[2016-12-27] MEDS: ASPIRIN 81 MG TAB PO SCH (08:15)
[2016-12-27] MEDS: CHOLECALCIFEROL 1,000 UNIT TAB PO SCH (08:16)
[2016-12-27] MEDS: FAMOTIDINE 20 MG TAB PO SCH ×2 (08:16→20:51)
[2016-12-27] MEDS: metFORMIN 500 MG TAB PO SCH ×2 (08:17→17:44)
[2016-12-27] MEDS: NIFEdipine (XL) 60 MG TAB PO SCH ×2 (08:17→20:56)
[2016-12-27] MEDS: INSULIN ASPART [NOVOLOG] 3 ML PEN SC SCH ×6 (08:18→20:52)
--- NOTE | 2016-12-27 12:21 | CONS ---
Date/Time of Note Date/Time of Note DATE: 12/27/16 TIME: 12:20 Consult Date/Type/Reason Admit Date/Time Dec 25, 2016 at 17:11 Initial Consult Date Subjective Patient motivated for therapies Objective pulm- cta mod.max Vital Signs Date Time Temp Pulse Resp B/P Pulse Ox O2 Delivery O2 Flow Rate FiO2 12/27/16 00:15 98.2 75 143/77 12/26/16 20:00 18 98 12/26/16 08:00 Room Air Intake and Output 12/26/16 12/26/16 12/27/16 15:00 23:00 07:00 Intake Total 1000 ml Balance 1000 ml Results/Medications Result Diagram: 12/26/1661412/26/16 0615 Results 24 hrs Laboratory Tests Test 12/26/16 17:42 12/26/16 20:50 12/27/16 02:15 12/27/16 07:40 Bedside Glucose 205 228 H 172 169 Test 12/27/16 11:57 Bedside Glucose 144 Medications Current Medications Acetaminophen (Tylenol Tab) 650 mg Q6H PRN PO PAIN LEVEL 1-3 OR FEVER; Start at 19:00 Acetaminophen/ Hydrocodone Bitart ([place] (5/325)) 1 tab Q6H PRN PO PAIN LEVEL 4 -6; Start 12/25/16 at 19:00 Magnesium Hydroxide (Milk Of Mag) 30 ml DAILY PRN PO CONSTIPATION; Start at 19:00 Bisacodyl (Dulcolax) 5 mg DAILY PRN PO CONSTIPATION; Start 12/25/16 at 19:00 Atorvastatin Calcium (Lipitor) 40 mg HS PO Last administered on 12/26/16t 22:04 ; Admin Dose 40 MG; Start 12/25/16 at 21:00 Glucose (Glutose) 15 gm Q15M PRN PO DECREASED GLUCOSE; Start 12/25/16 at 19:00 Glucose (Glutose) 22.5 gm Q15M PRN PO DECREASED GLUCOSE; Start 12/25/16 at 19:00 Dextrose (D50w Syringe) 25 ml Q15M PRN IV DECREASED GLUCOSE; Start 12/25/16 at 19:00 Dextrose (D50w Syringe) 50 ml Q15M PRN IV DECREASED GLUCOSE; Start 12/25/16 at 19:00 Glucagon (Glucagen) 1 mg Q15M PRN IM DECREASED GLUCOSE; Start 12/25/16 at 19:00 Glucose (Glutose) 15 gm Q15M PRN BUCCAL DECREASED GLUCOSE; Start 12/25/16 at 19: 00 Nifedipine (Procardia Xl) 60 mg BID PO Last administered on 12/27/16 08:17; Admin Dose 60 MG; Start 12/25/16 at 21:00 Diagnostic Test (Pha) (Accucheck) 1 ea 02 XX Last administered on 12/26/16 02: 00; Admin Dose 1 EA; Start 12/26/16 at 02:00 Cholecalciferol (Vitamin D) 1,000 unit DAILY PO Last administered on 12/27/16 08:16; Admin Dose 1,000 UNIT; Start 12/26/16 at 09:00 Famotidine (Pepcid) 20 mg BID PO Last administered on 12/27/16 08:16; Admin Dose 20 MG; Start 12/25/16 at 21:00 Lorazepam (Ativan) 0.5 mg Q8H PRN PO ANXIETY; Start 12/25/16 at 19:00 Meclizine HCl (Antivert) 12.5 mg TID PRN PO Vertigo; Start 12/25/16 at 19:00 Miscellaneous Information 1 ea NOTE XX ; Start 12/25/16 at 19:00 Docusate Sodium (Colace) 100 mg BID PO Last administered on 12/27/16 08:15; Admin Dose 100 MG; Start 12/26/16 at 09:00 Senna (Senokot) 1 tab HS PO Last administered on 12/26/16 22:07; Admin Dose 1 TAB; Start 12/26/16 at 21:00 Lactulose (Enulose) 20 gm DAILY PRN PO CONSTIPATION; Start 12/26/16 at 04:30 Aspirin (Aspirin) 81 mg DAILY PO Last administered on 12/27/16 08:15; Admin Dose 81 MG; Start 12/26/16 at 12:00 Insulin Glargine (Lantus) 10 unit HS SC Last administered on 12/26/16 22:33; Admin Dose 10 UNIT; Start 12/26/16 at 21:00 Ondansetron HCl (Zofran Inj) 4 mg Q6H PRN IV NAUSEA AND/OR VOMITING Last administered on 2/10/17at 01:00; Admin Dose 4 MG; Start 12/27/16 at 00:30 Assessment/Plan Additional Assessment/Plan Rehab- Left pontine infarct cerebrovascular accident with right-sided weakness in addition to ANA intracranial aneurysm. Continue rehab program Dysphagia-tolerating diet Hypertension. Uncontrolled diabetes mellitus. Cervical spinal stenosis. AURE BILLY MD Dec 27, 2016 12:21
--- NOTE | 2016-12-27 13:23 | PN ---
Date/Time of Note Date/Time of Note DATE: 12/27/16 TIME: 13:21 Assessment/Plan VTE Prophylaxis VTE Prophylaxis Intervention: SCD's Lines/Catheters [facility]from [facility] [place] Urinary Cath still in place: No Assessment/Plan Chief Complaint/Hosp Course ASSESSMENT AND PLAN: 1. Acute left pontine infarct. Continue aspirin, statin. Continue to monitor and treat blood pressure with nifedipine. Continue physical therapy and occupational therapy. 2. Incidental finding of cerebral aneurysm, stable. The patient was seen and evaluated by neurosurgery during the course of the hospitalization. Will plan to follow up with neurosurgery as outpatient. 3. Essential hypertension, well controlled on nifedipine. 4. Diabetes mellitus type 2. Continue Lantus, insulin sliding scale, low- carbohydrate diet. 5. Dyslipidemia. Continue statin. 6. Vitamin D deficiency. Continue vitamin D supplementation. 7. For deep venous thrombosis prophylaxis, the patient is ambulating and has been started on sequential compression devices. Refrain from using any pharmacologic DVT prophylaxis at this time secondary to incidental finding of cerebral aneurysm. 8. For gastrointestinal prophylaxis, on Pepcid. We will continue to monitor patient closely. Further recommendations, management and treatment as per clinical course. Problems: Subjective 24 Hr Interval Summary Free Text/Dictation Max assist with ambulation secondary to right upper and lower extremity weakness Ambulate 10 feet with max assist Tolerating oral intake Exam/Review of Systems Vital Signs Vitals Vital Signs Date Time Temp Pulse Resp B/P Pulse Ox O2 Delivery O2 Flow Rate FiO2 12/27/16 00:15 98.2 75 143/77 12/26/16 20:00 18 98 12/26/16 08:00 Room Air Intake and Output 12/26/16 12/26/16 12/27/16 15:00 23:00 07:00 Intake Total 1000 ml Balance 1000 ml Exam General: The patient is well-developed, Not in acute distress. HEENT: Atraumatic, normocephalic. The pupils are equal and round . Neck: Supple with full range of motion. Chest: Normal expansion of the thorax during inspiration Lungs: Clear to auscultation bilaterally Heart: Normal S1-S2, Regular rhythm and rate. Abdomen: Soft , nontender, nondistended , bowel sounds are present. Extremities: Right upper and lower extremity weakness 3/5 , no edema no cyanosis Neurologic: Normal mental status,The patient is awake, alert and oriented . Results Result Diagram: 12/26/16 0615 12/26/16 0615 Results 24 hrs Laboratory Tests Test 12/26/16 17:42 12/26/16 20:50 12/27/16 02:15 12/27/16 07:40 Bedside Glucose 205 228 H 172 169 Test 12/27/16 11:57 Bedside Glucose 144 Medications Medications Current Medications Acetaminophen (Tylenol Tab) 650 mg Q6H PRN PO PAIN LEVEL 1-3 OR FEVER; Start at 19:00 Acetaminophen/ Hydrocodone Bitart ([place] (5/325)) 1 tab Q6H PRN PO PAIN LEVEL 4 -6; Start 12/25/16 at 19:00 Magnesium Hydroxide (Milk Of Mag) 30 ml DAILY PRN PO CONSTIPATION; Start at 19:00 Bisacodyl (Dulcolax) 5 mg DAILY PRN PO CONSTIPATION; Start 12/25/16 at 19:00 Atorvastatin Calcium (Lipitor) 40 mg HS PO Last administered on 12/26/16 22:04 ; Admin Dose 40 MG; Start 12/25/16 at 21:00 Glucose (Glutose) 15 gm Q15M PRN PO DECREASED GLUCOSE; Start 12/25/16 at 19:00 Glucose (Glutose) 22.5 gm Q15M PRN PO DECREASED GLUCOSE; Start 12/25/16 at 19:00 Dextrose (D50w Syringe) 25 ml Q15M PRN IV DECREASED GLUCOSE; Start 12/25/16 at 19:00 Dextrose (D50w Syringe) 50 ml Q15M PRN IV DECREASED GLUCOSE; Start 12/25/16 at 19:00 Glucagon (Glucagen) 1 mg Q15M PRN IM DECREASED GLUCOSE; Start 12/25/16 at 19:00 Glucose (Glutose) 15 gm Q15M PRN BUCCAL DECREASED GLUCOSE; Start 12/25/16 at 19: 00 Nifedipine (Procardia Xl) 60 mg BID PO Last administered on 12/27/16 08:17; Admin Dose 60 MG; Start 12/25/16 at 21:00 Diagnostic Test (Pha) (Accucheck) 1 ea 02 XX Last administered on 12/26/16 02: 00; Admin Dose 1 EA; Start 12/26/16 at 02:00 Cholecalciferol (Vitamin D) 1,000 unit DAILY PO Last administered on 12/27/16 08:16; Admin Dose 1,000 UNIT; Start 12/26/16 at 09:00 Famotidine (Pepcid) 20 mg BID PO Last administered on 12/27/16 08:16; Admin Dose 20 MG; Start 12/25/16 at 21:00 Lorazepam (Ativan) 0.5 mg Q8H PRN PO ANXIETY; Start 12/25/16 at 19:00 Meclizine HCl (Antivert) 12.5 mg TID PRN PO Vertigo; Start 12/25/16 at 19:00 Miscellaneous Information 1 ea NOTE XX ; Start 12/25/16 at 19:00 Docusate Sodium (Colace) 100 mg BID PO Last administered on 12/27/16 08:15; Admin Dose 100 MG; Start 12/26/16 at 09:00 Senna (Senokot) 1 tab HS PO Last administered on 12/26/16 22:07; Admin Dose 1 TAB; Start 12/26/16 at 21:00 Lactulose (Enulose) 20 gm DAILY PRN PO CONSTIPATION; Start 12/26/16 at 04:30 Aspirin (Aspirin) 81 mg DAILY PO Last administered on 12/27/16 08:15; Admin Dose 81 MG; Start 12/26/16 at 12:00 Insulin Glargine (Lantus) 10 unit HS SC Last administered on 12/26/16 22:33; Admin Dose 10 UNIT; Start 12/26/16 at 21:00 Ondansetron HCl (Zofran Inj) 4 mg Q6H PRN IV NAUSEA AND/OR VOMITING Last administered on 12/27/16 01:00; Admin Dose 4 MG; Start 12/27/16 at 00:30 ALMA HURST MD Dec 27, 2016 13:23
[2016-12-27 20:51] VITALS: BP 136/66; RESP 18
[2016-12-27] MEDS: ATORVASTATIN 40 MG TAB PO SCH (20:51)
[2016-12-27] MEDS: INSULIN GLARGINE [LANtus] 3 ML PEN SC SCH (20:56)
[2016-12-27] MEDS: SENNA TAB PO SCH (20:57)
[2016-12-27] MEDS ORDERED: LOPERAMIDE 2 MG CAP PO ONE (23:30)
[2016-12-28] MEDS: ACCUCHECK XX SCH (02:00)
[2016-12-28 07:52] VITALS: BP 121/56; PULSE 79; RESP 20
[2016-12-28] MEDS: DOCUSATE SODIUM 100 MG CAP PO SCH ×2 (09:00→21:00)
[2016-12-28] MEDS: INSULIN ASPART [NOVOLOG] 3 ML PEN SC SCH ×4 (09:00→21:00)
[2016-12-28] MEDS: CHOLECALCIFEROL 1,000 UNIT TAB PO SCH (09:01)
[2016-12-28] MEDS: FAMOTIDINE 20 MG TAB PO SCH ×2 (09:01→21:05)
[2016-12-28] MEDS: metFORMIN 500 MG TAB PO SCH ×2 (09:01→17:42)
[2016-12-28] MEDS: ASPIRIN 81 MG TAB PO SCH (09:01)
[2016-12-28] MEDS: NIFEdipine (XL) 60 MG TAB PO SCH ×2 (09:02→21:05)
--- NOTE | 2016-12-28 09:20 | PN ---
Date/Time of Note Date/Time of Note DATE: 12/28/16 TIME: 09:19 Assessment/Plan VTE Prophylaxis VTE Prophylaxis Intervention: SCD's Lines/Catheters IV [facility] Type (from [facility] [place] Urinary Cath still in place: No Assessment/Plan Chief Complaint/Hosp Course ASSESSMENT AND PLAN: 1. Acute left pontine infarct. Continue aspirin, statin. Continue to monitor and treat blood pressure with nifedipine. Continue physical therapy and occupational therapy. 2. Incidental finding of cerebral aneurysm, stable. The patient was seen and evaluated by neurosurgery during the course of the hospitalization. Will plan to follow up with neurosurgery as outpatient. 3. Essential hypertension, well controlled on nifedipine. 4. Diabetes mellitus type 2. Continue Lantus, insulin sliding scale, low- carbohydrate diet. 5. Dyslipidemia. Continue statin. 6. Vitamin D deficiency. Continue vitamin D supplementation. 7. For deep venous thrombosis prophylaxis, the patient is ambulating and has been started on sequential compression devices. Refrain from using any pharmacologic DVT prophylaxis at this time secondary to incidental finding of cerebral aneurysm. 8. For gastrointestinal prophylaxis, on Pepcid. We will continue to monitor patient closely. Further recommendations, management and treatment as per clinical course. Problems: Subjective 24 Hr Interval Summary Free Text/Dictation Patient denies any chest pain or shortness of breath Denies of any headache or dizziness or lightheadedness Tolerating oral intake without any difficulty Max assist with ambulation, 20 feet Exam/Review of Systems Vital Signs Vitals Vital Signs Date Time Temp Pulse Resp B/P Pulse Ox O2 Delivery O2 Flow Rate FiO2 12/28/16 07:52 97.8 79 20 121/56 96 Room Air Intake and Output 12/27/16 12/27/16 12/28/16 15:00 23:00 07:00 Intake Total 200 ml 100 ml Balance 200 ml 100 ml Exam General: The patient is well-developed, Not in acute distress. HEENT: Atraumatic, normocephalic. The pupils are equal and round . Neck: Supple with full range of motion. Chest: Normal expansion of the thorax during inspiration Lungs: Clear to auscultation bilaterally Heart: Normal S1-S2, Regular rhythm and rate. Abdomen: Soft , nontender, nondistended , bowel sounds are present. Extremities: Right upper and lower extremity weakness3/5, no edema no cyanosis Neurologic: Normal mental status,The patient is awake, alert and oriented . Results Result Diagram: 12/26/16 0615 12/26/16 0615 Results 24 hrs Laboratory Tests Test 12/27/16 11:57 12/27/16 17:01 12/27/16 20:42 12/28/16 07:50 Bedside Glucose 144 177 162 147 Medications Medications Current Medications Acetaminophen (Tylenol Tab) 650 mg Q6H PRN PO PAIN LEVEL 1-3 OR FEVER; Start at 19:00 Acetaminophen/ Hydrocodone Bitart ([place] (5/325)) 1 tab Q6H PRN PO PAIN LEVEL 4 -6; Start 12/25/16 at 19:00 Magnesium Hydroxide (Milk Of Mag) 30 ml DAILY PRN PO CONSTIPATION; Start at 19:00 Bisacodyl (Dulcolax) 5 mg DAILY PRN PO CONSTIPATION; Start 12/25/16 at 19:00 Atorvastatin Calcium (Lipitor) 40 mg HS PO Last administered on 12/27/16 20:51 ; Admin Dose 40 MG; Start 12/25/16 at 21:00 Glucose (Glutose) 15 gm Q15M PRN PO DECREASED GLUCOSE; Start 12/25/16 at 19:00 Glucose (Glutose) 22.5 gm Q15M PRN PO DECREASED GLUCOSE; Start 12/25/16 at 19:00 Dextrose (D50w Syringe) 25 ml Q15M PRN IV DECREASED GLUCOSE; Start 12/25/16 at 19:00 Dextrose (D50w Syringe) 50 ml Q15M PRN IV DECREASED GLUCOSE; Start 12/25/16 at 19:00 Glucagon (Glucagen) 1 mg Q15M PRN IM DECREASED GLUCOSE; Start 12/25/16 at 19:00 Glucose (Glutose) 15 gm Q15M PRN BUCCAL DECREASED GLUCOSE; Start 12/25/16 at 19: 00 Nifedipine (Procardia Xl) 60 mg BID PO Last administered on 12/28/16 09:02; Admin Dose 60 MG; Start 12/25/16 at 21:00 Diagnostic Test (Pha) (Accucheck) 1 ea 02 XX Last administered on 12/26/16 02: 00; Admin Dose 1 EA; Start 12/26/16 at 02:00 Cholecalciferol (Vitamin D) 1,000 unit DAILY PO Last administered on 12/28/16 09:01; Admin Dose 1,000 UNIT; Start 12/26/16 at 09:00 Famotidine (Pepcid) 20 mg BID PO Last administered on 12/28/16 09:01; Admin Dose 20 MG; Start 12/25/16 at 21:00 Lorazepam (Ativan) 0.5 mg Q8H PRN PO ANXIETY; Start 12/25/16 at 19:00 Meclizine HCl (Antivert) 12.5 mg TID PRN PO Vertigo; Start 12/25/16 at 19:00 Miscellaneous Information 1 ea NOTE XX ; Start 12/25/16 at 19:00 Docusate Sodium (Colace) 100 mg BID PO Last administered on 12/27/16 20:51; Admin Dose 100 MG; Start 12/26/16 at 09:00 Senna (Senokot) 1 tab HS PO Last administered on 12/26/16 22:07; Admin Dose 1 TAB; Start 12/26/16 at 21:00 Lactulose (Enulose) 20 gm DAILY PRN PO CONSTIPATION; Start 12/26/16 at 04:30 Aspirin (Aspirin) 81 mg DAILY PO Last administered on 12/28/16 09:01; Admin Dose 81 MG; Start 12/26/16 at 12:00 Ondansetron HCl (Zofran Inj) 4 mg Q6H PRN IV NAUSEA AND/OR VOMITING Last administered on 12/27/16 01:00; Admin Dose 4 MG; Start 12/27/16 at 00:30 Insulin Glargine (Lantus) 12 unit HS SC Last administered on 12/27/16 20:56; Admin Dose 12 UNIT; Start 12/27/16 at 21:00 ALMA HURST MD Dec 28, 2016 09:20
--- NOTE | 2016-12-28 14:31 | PN ---
Date/Time of Note Date/Time of Note DATE: 12/28/16 TIME: 14:27 Assessment/Plan VTE Prophylaxis VTE Prophylaxis Intervention: SCD's Lines/Catheters IV Catheter Type (from Nrs): Saline Lock Urinary Cath still in place: No Assessment/Plan Assessment/Plan 1. 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 Continue PT/OT. Mod assist for bed mobility and transfers. Secondary stroke prevention per neurology. 2. Hypertension. BP controlled. Continue current management. 3. Diabetes mellitus. Continue to monitor blood sugars, internal medicine managing. 4. Cervical spinal stenosis. Continue pain control. 5. Loose stools. Hold stool softeners. If continues, would check for C diff. Subjective 24 Hr Interval Summary Free Text/Dictation Rehab progress note Subjective: Reports loose stools yesterday, stool softeners being held. No loose stools so far reported today. ROS: Denies abdominal pain, no nausea, no vomiting, no chills, no chest pain, no shortness of breath. No headache, no new weakness. Exam/Review of Systems Vital Signs Vitals Vital Signs Date Time Temp Pulse Resp B/P Pulse Ox O2 Delivery O2 Flow Rate FiO2 12/28/16 07:52 97.8 79 20 121/56 96 Room Air Intake and Output 12/27/16 12/27/16 12/28/16 15:00 23:00 07:00 Intake Total 200 ml 100 ml Balance 200 ml 100 ml Exam General: Awake, alert, no acute distress CV: Regular rate, s1s2 Lungs: Clear to auscultation, no wheezing Abdomen soft, nontender Extremities without cyanosis, no edema Neuro: Follows simple commands. Right sided hemiparesis. Results Result Diagram: 12/26/16 0615 12/26/16 0615 Results 24 hrs Laboratory Tests Test 12/27/16 17:01 12/27/16 20:42 12/28/16 07:50 12/28/16 11:56 Bedside Glucose 177 162 147 229 H Medications Medications Current Medications Acetaminophen (Tylenol Tab) 650 mg Q6H PRN PO PAIN LEVEL 1-3 OR FEVER; Start at 19:00 Acetaminophen/ Hydrocodone Bitart ([place] (5/325)) 1 tab Q6H PRN PO PAIN LEVEL 4 -6; Start 12/25/16 at 19:00 Magnesium Hydroxide (Milk Of Mag) 30 ml DAILY PRN PO CONSTIPATION; Start at 19:00 Bisacodyl (Dulcolax) 5 mg DAILY PRN PO CONSTIPATION; Start 12/25/16 at 19:00 Atorvastatin Calcium (Lipitor) 40 mg HS PO Last administered on 12/27/16 20:51 ; Admin Dose 40 MG; Start 12/25/16 at 21:00 Glucose (Glutose) 15 gm Q15M PRN PO DECREASED GLUCOSE; Start 12/25/16 at 19:00 Glucose (Glutose) 22.5 gm Q15M PRN PO DECREASED GLUCOSE; Start 12/25/16 at 19:00 Dextrose (D50w Syringe) 25 ml Q15M PRN IV DECREASED GLUCOSE; Start 12/25/16 at 19:00 Dextrose (D50w Syringe) 50 ml Q15M PRN IV DECREASED GLUCOSE; Start 12/25/16 at 19:00 Glucagon (Glucagen) 1 mg Q15M PRN IM DECREASED GLUCOSE; Start 12/25/16 at 19:00 Glucose (Glutose) 15 gm Q15M PRN BUCCAL DECREASED GLUCOSE; Start 12/25/16 at 19: 00 Nifedipine (Procardia Xl) 60 mg BID PO Last administered on 12/28/16 09:02; Admin Dose 60 MG; Start 12/25/16 at 21:00 Diagnostic Test (Pha) (Accucheck) 1 ea 02 XX Last administered on 12/26/16 02: 00; Admin Dose 1 EA; Start 12/26/16 at 02:00 Cholecalciferol (Vitamin D) 1,000 unit DAILY PO Last administered on 12/28/16 09:01; Admin Dose 1,000 UNIT; Start 12/26/16 at 09:00 Famotidine (Pepcid) 20 mg BID PO Last administered on 12/28/16 09:01; Admin Dose 20 MG; Start 12/25/16 at 21:00 Lorazepam (Ativan) 0.5 mg Q8H PRN PO ANXIETY; Start 12/25/16 at 19:00 Meclizine HCl (Antivert) 12.5 mg TID PRN PO Vertigo; Start 12/25/16 at 19:00 Miscellaneous Information 1 ea NOTE XX ; Start 12/25/16 at 19:00 Docusate Sodium (Colace) 100 mg BID PO Last administered on 12/27/16 20:51; Admin Dose 100 MG; Start 12/26/16 at 09:00 Senna (Senokot) 1 tab HS PO Last administered on 12/26/16 22:07; Admin Dose 1 TAB; Start 12/26/16 at 21:00 Lactulose (Enulose) 20 gm DAILY PRN PO CONSTIPATION; Start 12/26/16 at 04:30 Aspirin (Aspirin) 81 mg DAILY PO Last administered on 12/28/16 09:01; Admin Dose 81 MG; Start 12/26/16 at 12:00 Ondansetron HCl (Zofran Inj) 4 mg Q6H PRN IV NAUSEA AND/OR VOMITING Last administered on 12/27/16 01:00; Admin Dose 4 MG; Start 12/27/16 at 00:30 Insulin Glargine (Lantus) 12 unit HS SC Last administered on 12/27/16 20:56; Admin Dose 12 UNIT; Start 12/27/16 at 21:00 RIVKA NIÑO Dec 28, 2016 14:31
[2016-12-28 20:13] VITALS: BP 126/65; RESP 18
[2016-12-28] MEDS: SENNA TAB PO SCH (21:00)
[2016-12-28] MEDS: ATORVASTATIN 40 MG TAB PO SCH (21:05)
[2016-12-28] MEDS: INSULIN GLARGINE [LANtus] 3 ML PEN SC SCH (21:16)
[2016-12-29] MEDS: ACCUCHECK XX SCH (02:00)
[2016-12-29 07:30] VITALS: BP 127/60; RESP 18
[2016-12-29] MEDS: INSULIN ASPART [NOVOLOG] 3 ML PEN SC SCH ×4 (07:35→21:00)
[2016-12-29] MEDS: FAMOTIDINE 20 MG TAB PO SCH ×2 (08:06→21:19)
[2016-12-29] MEDS: CHOLECALCIFEROL 1,000 UNIT TAB PO SCH (08:06)
[2016-12-29] MEDS: ASPIRIN 81 MG TAB PO SCH (08:07)
[2016-12-29] MEDS: NIFEdipine (XL) 60 MG TAB PO SCH ×2 (08:07→21:19)
[2016-12-29] MEDS: metFORMIN 500 MG TAB PO SCH ×2 (08:07→17:33)
[2016-12-29] MEDS: DOCUSATE SODIUM 100 MG CAP PO SCH ×2 (08:07→21:00)
--- NOTE | 2016-12-29 08:54 | PN ---
Date/Time of Note Date/Time of Note DATE: 12/29/16 TIME: 08:53 Assessment/Plan VTE Prophylaxis VTE Prophylaxis Intervention: SCD's Lines/Catheters IV [facility]from [facility] Saline Lock Urinary Cath still in place: No Assessment/Plan Chief Complaint/Hosp Course ASSESSMENT AND PLAN: 1. Acute left pontine infarct. Continue aspirin, statin. Continue to monitor and treat blood pressure with nifedipine. Continue physical therapy and occupational therapy. 2. Incidental finding of cerebral aneurysm, stable. The patient was seen and evaluated by neurosurgery during the course of the hospitalization. Will plan to follow up with neurosurgery as outpatient. 3. Essential hypertension, well controlled on nifedipine. 4. Diabetes mellitus type 2. Continue Lantus, insulin sliding scale, low- carbohydrate diet. 5. Dyslipidemia. Continue statin. 6. Vitamin D deficiency. Continue vitamin D supplementation. 7. For deep venous thrombosis prophylaxis, the patient is ambulating and has been started on sequential compression devices. Refrain from using any pharmacologic DVT prophylaxis at this time secondary to incidental finding of cerebral aneurysm. 8. For gastrointestinal prophylaxis, on Pepcid. We will continue to monitor patient closely. Further recommendations, management and treatment as per clinical course. Problems: Subjective 24 Hr Interval Summary Free Text/Dictation Patient complains of having dizziness this morning Denies of any new numbness or weakness Tolerating oral intake Exam/Review of Systems Vital Signs Vitals Vital Signs Date Time Temp Pulse Resp B/P Pulse Ox O2 Delivery O2 Flow Rate FiO2 12/28/16 20:13 98.3 79 18 126/65 97 12/28/16 07:52 Room Air Intake and Output 12/28/16 12/28/16 12/29/16 15:00 23:00 07:00 Intake Total 700 ml Balance 700 ml Exam General: The patient is well-developed, Not in acute distress. HEENT: Atraumatic, normocephalic. The pupils are equal and round . Neck: Supple with full range of motion. Chest: Normal expansion of the thorax during inspiration Lungs: Clear to auscultation bilaterally Heart: Normal S1-S2, Regular rhythm and rate. Abdomen: Soft , nontender, nondistended , bowel sounds are present. Extremities: Right upper and lower extremity weakness 3/5, no edema no cyanosis Neurologic: Normal mental status,The patient is awake, alert and oriented . Results Result Diagram: 12/26/16 0615 12/26/16 0615 Results 24 hrs Laboratory Tests Test 12/28/16 11:56 12/28/16 17:19 12/28/16 21:10 12/29/16 07:44 Bedside Glucose 229 H 96 137 92 Medications Medications Current Medications Acetaminophen (Tylenol Tab) 650 mg Q6H PRN PO PAIN LEVEL 1-3 OR FEVER; Start at 19:00 Acetaminophen/ Hydrocodone Bitart ([place] (5/325)) 1 tab Q6H PRN PO PAIN LEVEL 4 -6; Start 12/25/16 at 19:00 Magnesium Hydroxide (Milk Of Mag) 30 ml DAILY PRN PO CONSTIPATION; Start at 19:00 Bisacodyl (Dulcolax) 5 mg DAILY PRN PO CONSTIPATION; Start 12/25/16 at 19:00 Atorvastatin Calcium (Lipitor) 40 mg HS PO Last administered on 12/28/16 21:05 ; Admin Dose 40 MG; Start 12/25/16 at 21:00 Glucose (Glutose) 15 gm Q15M PRN PO DECREASED GLUCOSE; Start 12/25/16 at 19:00 Glucose (Glutose) 22.5 gm Q15M PRN PO DECREASED GLUCOSE; Start 12/25/16 at 19:00 Dextrose (D50w Syringe) 25 ml Q15M PRN IV DECREASED GLUCOSE; Start 12/25/16 at 19:00 Dextrose (D50w Syringe) 50 ml Q15M PRN IV DECREASED GLUCOSE; Start 12/25/16 at 19:00 Glucagon (Glucagen) 1 mg Q15M PRN IM DECREASED GLUCOSE; Start 12/25/16 at 19:00 Glucose (Glutose) 15 gm Q15M PRN BUCCAL DECREASED GLUCOSE; Start 12/25/16 at 19: 00 Nifedipine (Procardia Xl) 60 mg BID PO Last administered on 12/29/16 08:07; Admin Dose 60 MG; Start 12/25/16 at 21:00 Diagnostic Test (Pha) (Accucheck) 1 ea 02 XX Last administered on 12/26/16 02: 00; Admin Dose 1 EA; Start 12/26/16 at 02:00 Cholecalciferol (Vitamin D) 1,000 unit DAILY PO Last administered on 12/29/16 08:06; Admin Dose 1,000 UNIT; Start 12/26/16 at 09:00 Famotidine (Pepcid) 20 mg BID PO Last administered on 12/29/16 08:06; Admin Dose 20 MG; Start 12/25/16 at 21:00 Lorazepam (Ativan) 0.5 mg Q8H PRN PO ANXIETY; Start 12/25/16 at 19:00 Meclizine HCl (Antivert) 12.5 mg TID PRN PO Vertigo Last administered on 21:05; Admin Dose 12.5 MG; Start 12/25/16 at 19:00 Miscellaneous Information 1 ea NOTE XX ; Start 12/25/16 at 19:00 Docusate Sodium (Colace) 100 mg BID PO Last administered on 12/29/16 08:07; Admin Dose 100 MG; Start 12/26/16 at 09:00 Senna (Senokot) 1 tab HS PO Last administered on 12/26/16 22:07; Admin Dose 1 TAB; Start 12/26/16 at 21:00 Lactulose (Enulose) 20 gm DAILY PRN PO CONSTIPATION; Start 12/26/16 at 04:30 Aspirin (Aspirin) 81 mg DAILY PO Last administered on 12/29/16 08:07; Admin Dose 81 MG; Start 12/26/16 at 12:00 Ondansetron HCl (Zofran Inj) 4 mg Q6H PRN IV NAUSEA AND/OR VOMITING Last administered on 12/27/16 01:00; Admin Dose 4 MG; Start 12/27/16 at 00:30 Insulin Glargine (Lantus) 12 unit HS SC Last administered on 12/28/16 21:16; Admin Dose 12 UNIT; Start 12/27/16 at 21:00 ALMA HURST MD Dec 29, 2016 08:54
--- NOTE | 2016-12-29 10:48 | RADRPT ---
PROCEDURE: CT Brain without. CLINICAL INDICATION: Acute weakness. TECHNIQUE: A CT of the brain was performed on multidetector high-resolution CT scanner utilizing a xial sections from the skull base through the vertex without contrast. The scan was reviewed in sof t tissue brain and high frequency resolution bone algorithm windows. Images were reviewed on a high -resolution PACS workstation. One or more the following does reduction techniques were utilized: Aut omated exposure control, adjustment of the mA/ or kV according to patient's size, or use of iterativ e reconstruction technique. The exam CTDI = 45.01 mGy and the DLP = 720.23 mGy-cm. COMPARISON: Brain CT and brain MRI 12/23/2016. FINDINGS: The ventricles and sulci are mildly prominent indicative of volume loss. There is no intracranial he morrhage, mass effect or midline shift. No abnormal intra-axial or extra-axial fluid collections ar e seen. The pressley/white matter differentiation is preserved. There are moderate scattered foci of hypoattenuation in the white matter, which are nonspecific in e tiology but likely reflect chronic small vessel ischemic changes. There is 7 mm hypodensity in the p ons consistent with the recent infarct, better seen on prior brain MRI. There are mild intracranial vascular calcifications consistent with atherosclerosis. The visualized paranasal sinuses are essent ially clear. There is thinning of bilateral lens indicative of prior lens replacement. IMPRESSION: 1. A 7 mm recent pontine infarct, better seen on prior brain MRI. Grossly no CT evidence of hemorrh agic transformation. 2. No acute intracranial hemorrhage, transcortical infarction or mass effect. 3. Mild intracranial atherosclerosis and moderate chronic small vessel ischemic changes. 4. Mild generalized cerebral volume loss. RPTAT: AA .Lewis Melgar MD, MD Date Time Electronically viewed and signed by .Lewis Melgar MD, MD on 12/29/2016 10:47 .N/
--- NOTE | 2016-12-29 10:51 | PN ---
Date/Time of Note Date/Time of Note DATE: 12/29/16 TIME: 10:34 Assessment/Plan VTE Prophylaxis VTE Prophylaxis Intervention: SCD's Lines/Catheters IV [facility] Type [email or web address] Sal[facility] Lock Urinary Cath still in place: No Assessment/Plan Assessment/Plan 1. 1. 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 Continue PT/OT/ST. Min assist for lower body dressing and toileting. Case discussed with internal medicine today, ordered for repeat follow up head CT. Further medical management per neurology/internal medicine, continue secondary stroke prevention per neurology. Maintain close neuro checks. 2. Hypertension. BP controlled. Continue antihypertensive medications per internal medicine. 3. Diabetes mellitus. Continue to monitor blood sugars, internal medicine managing. 4. Cervical spinal stenosis. Continue pain control. 5. Dyslipidemia. Continue statin. 6. Loose stools resolved. Monitor. Subjective 24 Hr Interval Summary Free Text/Dictation Rehab progress note Subjective/ROS: Reports feeling lightheaded and dizzy. No new visual changes, no headache, denies new focal weakness or new paresthesias. Reports vomiting once last night. No vomiting today. Denies abdominal pain or constipation. No further loose stools. No chills. Exam/Review of Systems Vital Signs Vitals Vital Signs Date Time Temp Pulse Resp B/P Pulse Ox O2 Delivery O2 Flow Rate FiO2 12/28/16 20:13 98.3 79 18 126/65 97 12/28/16 07:52 Room Air Intake and Output 12/28/16 12/28/16 12/29/16 15:00 23:00 07:00 Intake Total 700 ml Balance 700 ml Exam General: Awake, alert, no acute distress CV: Regular rate, s1s2 Lungs: Clear to auscultation, no crackles Abdomen soft, nontender, bowel sounds present Extremities without new swelling. No cyanosis Neuro: No new apparent focal changes from exam yesterday. Right sided hemiparesis overall stable from prior exam. Results Result Diagram: 12/26/16 0615 12/26/16 0615 Results 24 hrs Laboratory Tests Test 12/28/16 11:56 12/28/16 17:19 12/28/16 21:10 12/29/16 07:44 Bedside Glucose 229 H 96 137 92 Medications Medications Current Medications Acetaminophen (Tylenol Tab) 650 mg Q6H PRN PO PAIN LEVEL 1-3 OR FEVER; Start at 19:00 Acetaminophen/ Hydrocodone Bitart ([place] (5/325)) 1 tab Q6H PRN PO PAIN LEVEL 4 -6; Start 12/25/16 at 19:00 Magnesium Hydroxide (Milk Of Mag) 30 ml DAILY PRN PO CONSTIPATION; Start at 19:00 Bisacodyl (Dulcolax) 5 mg DAILY PRN PO CONSTIPATION; Start 12/25/16 at 19:00 Atorvastatin Calcium (Lipitor) 40 mg HS PO Last administered on 12/28/16 21:05 ; Admin Dose 40 MG; Start 12/25/16 at 21:00 Glucose (Glutose) 15 gm Q15M PRN PO DECREASED GLUCOSE; Start 12/25/16 at 19:00 Glucose (Glutose) 22.5 gm Q15M PRN PO DECREASED GLUCOSE; Start 12/25/16 at 19:00 Dextrose (D50w Syringe) 25 ml Q15M PRN IV DECREASED GLUCOSE; Start 12/25/16 at 19:00 Dextrose (D50w Syringe) 50 ml Q15M PRN IV DECREASED GLUCOSE; Start 12/25/16 at 19:00 Glucagon (Glucagen) 1 mg Q15M PRN IM DECREASED GLUCOSE; Start 12/25/16 at 19:00 Glucose (Glutose) 15 gm Q15M PRN BUCCAL DECREASED GLUCOSE; Start 12/25/16 at 19: 00 Nifedipine (Procardia Xl) 60 mg BID PO Last administered on 12/29/16 08:07; Admin Dose 60 MG; Start 12/25/16 at 21:00 Diagnostic Test (Pha) (Accucheck) 1 ea 02 XX Last administered on 12/26/16 02: 00; Admin Dose 1 EA; Start 12/26/16 at 02:00 Cholecalciferol (Vitamin D) 1,000 unit DAILY PO Last administered on 12/29/16 08:06; Admin Dose 1,000 UNIT; Start 12/26/16 at 09:00 Famotidine (Pepcid) 20 mg BID PO Last administered on 12/29/16 08:06; Admin Dose 20 MG; Start 12/25/16 at 21:00 Lorazepam (Ativan) 0.5 mg Q8H PRN PO ANXIETY; Start 12/25/16 at 19:00 Meclizine HCl (Antivert) 12.5 mg TID PRN PO Vertigo Last administered on 21:05; Admin Dose 12.5 MG; Start 12/25/16 at 19:00 Miscellaneous Information 1 ea NOTE XX ; Start 12/25/16 at 19:00 Docusate Sodium (Colace) 100 mg BID PO Last administered on 12/29/16 08:07; Admin Dose 100 MG; Start 12/26/16 at 09:00 Senna (Senokot) 1 tab HS PO Last administered on 12/26/16 22:07; Admin Dose 1 TAB; Start 12/26/16 at 21:00 Lactulose (Enulose) 20 gm DAILY PRN PO CONSTIPATION; Start 12/26/16 at 04:30 Aspirin (Aspirin) 81 mg DAILY PO Last administered on 12/29/16 08:07; Admin Dose 81 MG; Start 12/26/16 at 12:00 Ondansetron HCl (Zofran Inj) 4 mg Q6H PRN IV NAUSEA AND/OR VOMITING Last administered on 12/27/16 01:00; Admin Dose 4 MG; Start 12/27/16 at 00:30 Insulin Glargine (Lantus) 12 unit HS SC Last administered on 12/28/16 21:16; Admin Dose 12 UNIT; Start 12/27/16 at 21:00 RIVKA NIÑO Dec 29, 2016 10:44
[2016-12-29 19:30] VITALS: BP 136/63; PULSE 73
[2016-12-29 19:44] VITALS: BP 135/67; RESP 18
[2016-12-29] MEDS: SENNA TAB PO SCH (21:00)
[2016-12-29] MEDS: ATORVASTATIN 40 MG TAB PO SCH (21:19)
[2016-12-29] MEDS: INSULIN GLARGINE [LANtus] 3 ML PEN SC SCH (21:25)
[2016-12-30] MEDS: ACCUCHECK XX SCH (02:00)
[2016-12-30 07:30] VITALS: BP 116/59; RESP 18
[2016-12-30] MEDS: INSULIN ASPART [NOVOLOG] 3 ML PEN SC SCH ×4 (07:35→21:00)
[2016-12-30] MEDS: CHOLECALCIFEROL 1,000 UNIT TAB PO SCH (08:09)
[2016-12-30] MEDS: NIFEdipine (XL) 60 MG TAB PO SCH ×2 (08:09→20:44)
[2016-12-30] MEDS: ASPIRIN 81 MG TAB PO SCH (08:09)
[2016-12-30] MEDS: metFORMIN 500 MG TAB PO SCH ×2 (08:09→17:45)
[2016-12-30] MEDS: DOCUSATE SODIUM 100 MG CAP PO SCH ×2 (08:10→21:00)
[2016-12-30] MEDS: FAMOTIDINE 20 MG TAB PO SCH ×2 (08:10→20:43)
--- NOTE | 2016-12-30 12:34 | CONS ---
Date/Time of Note Date/Time of Note DATE: 12/30/16 TIME: 12:32 Consult Date/Type/Reason Admit Date/Time Dec 25, 2016 at 17:11 Subjective Patient is comfortable, improving R UE strength Objective Vital Signs Date Time Temp Pulse Resp B/P Pulse Ox O2 Delivery O2 Flow Rate FiO2 12/30/16 07:30 97.4 86 18 116/59 98 12/29/16 19:30 Room Air Intake and Output 12/29/16 12/29/16 12/30/16 14:59 22:59 06:59 Intake Total 360 ml 800 ml Balance 360 ml 800 ml INTERDISCIPLINARY TEAM CONFERENCE BOWEL- Cont BLADDER-Cont SKIN- intact OT- DRESSING-min/mod BATHING-min/mod [id number]/mod PT- BED MOBILITY-mod TRANSFERS-mod AMBULATION-mod 20 feet W.C. MOBILITY SPEECH- COGNITION-GA DYPHAGIA- tolerating regular diet A/P- Interdisciplinary team conference held today. Please see interdisciplinary sheet. Working toward d.c. on 01/08 with post discharge follow up of physical therapy, occupational therapy. Results/Medications Result Diagram: 12/26/1615 12/26/1615 Results 24 hrs Laboratory Tests Test 12/29/16 17:21 12/29/16 21:17 12/30/16 07:30 12/30/16 11:41 Bedside Glucose 114 114 105 111 Medications Current Medications Acetaminophen (Tylenol Tab) 650 mg Q6H PRN PO PAIN LEVEL 1-3 OR FEVER; Start at 19:00 Acetaminophen/ Hydrocodone Bitart ([place] (5/325)) 1 tab Q6H PRN PO PAIN LEVEL 4 -6; Start 12/25/16 at 19:00 Magnesium Hydroxide (Milk Of Mag) 30 ml DAILY PRN PO CONSTIPATION; Start at 19:00 Bisacodyl (Dulcolax) 5 mg DAILY PRN PO CONSTIPATION; Start 12/25/16 at 19:00 Atorvastatin Calcium (Lipitor) 40 mg HS PO Last administered on 12/29/16t 21:19 ; Admin Dose 40 MG; Start 12/25/16 at 21:00 Glucose (Glutose) 15 gm Q15M PRN PO DECREASED GLUCOSE; Start 12/25/16 at 19:00 Glucose (Glutose) 22.5 gm Q15M PRN PO DECREASED GLUCOSE; Start 12/25/16 at 19:00 Dextrose (D50w Syringe) 25 ml Q15M PRN IV DECREASED GLUCOSE; Start 12/25/16 at 19:00 Dextrose (D50w Syringe) 50 ml Q15M PRN IV DECREASED GLUCOSE; Start 12/25/16 at 19:00 Glucagon (Glucagen) 1 mg Q15M PRN IM DECREASED GLUCOSE; Start 12/25/16 at 19:00 Glucose (Glutose) 15 gm Q15M PRN BUCCAL DECREASED GLUCOSE; Start 12/25/16 at 19: 00 Nifedipine (Procardia Xl) 60 mg BID PO Last administered on 12/30/16 08:09; Admin Dose 60 MG; Start 12/25/16 at 21:00 Diagnostic Test (Pha) (Accucheck) 1 ea 02 XX Last administered on 12/26/16 02: 00; Admin Dose 1 EA; Start 12/26/16 at 02:00 Cholecalciferol (Vitamin D) 1,000 unit DAILY PO Last administered on 12/30/16 08:09; Admin Dose 1,000 UNIT; Start 12/26/16 at 09:00 Famotidine (Pepcid) 20 mg BID PO Last administered on 12/30/16 08:10; Admin Dose 20 MG; Start 12/25/16 at 21:00 Lorazepam (Ativan) 0.5 mg Q8H PRN PO ANXIETY; Start 12/25/16 at 19:00 Meclizine HCl (Antivert) 12.5 mg TID PRN PO Vertigo Last administered on 21:05; Admin Dose 12.5 MG; Start 12/25/16 at 19:00 Miscellaneous Information 1 ea NOTE XX ; Start 12/25/16 at 19:00 Docusate Sodium (Colace) 100 mg BID PO Last administered on 12/29/16 08:07; Admin Dose 100 MG; Start 12/26/16 at 09:00 Senna (Senokot) 1 tab HS PO Last administered on 12/26/16 22:07; Admin Dose 1 TAB; Start 12/26/16 at 21:00 Lactulose (Enulose) 20 gm DAILY PRN PO CONSTIPATION; Start 12/26/16 at 04:30 Aspirin (Aspirin) 81 mg DAILY PO Last administered on 12/30/16 08:09; Admin Dose 81 MG; Start 12/26/16 at 12:00 Ondansetron HCl (Zofran Inj) 4 mg Q6H PRN IV NAUSEA AND/OR VOMITING Last administered on 12/27/16 01:00; Admin Dose 4 MG; Start 12/27/16 at 00:30 Insulin Glargine (Lantus) 12 unit HS SC Last administered on 12/29/16 21:25; Admin Dose 12 UNIT; Start 12/27/16 at 21:00 AURE BILLY MD Dec 30, 2016 12:34
--- NOTE | 2016-12-30 12:52 | PN ---
Date/Time of Note Date/Time of Note DATE: 12/30/16 TIME: 12:47 Assessment/Plan VTE Prophylaxis VTE Prophylaxis Intervention: other Lines/Catheters [facility]from [facility] Urinary Cath still in place: No Assessment/Plan Chief Complaint/Hosp Course ASSESSMENT AND PLAN: 1. Acute left pontine infarct. Continue aspirin, statin. Continue to monitor and treat blood pressure with nifedipine. Continue physical therapy and occupational therapy. 2. Incidental finding of cerebral aneurysm, stable. The patient was seen and evaluated by neurosurgery during the course of the hospitalization. Will plan to follow up with neurosurgery as outpatient. 3. Essential hypertension, well controlled on nifedipine. 4. Diabetes mellitus type 2. Continue Lantus, insulin sliding scale, low- carbohydrate diet. 5. Dyslipidemia. Continue statin. 6. Vitamin D deficiency. Continue vitamin D supplementation. 7. For deep venous thrombosis prophylaxis, the patient is ambulating and has been started on sequential compression devices. Refrain from using any pharmacologic DVT prophylaxis at this time secondary to incidental finding of cerebral aneurysm. 8. For gastrointestinal prophylaxis, on Pepcid. We will continue to monitor patient closely. Further recommendations, management and treatment as per clinical course. Problems: Subjective 24 Hr Interval Summary Free Text/Dictation No acute changes Patient is max assist with ambulation secondary to right upper and lower extremity weakness Tolerating oral intake Denies of any headache Exam/Review of Systems Vital Signs Vitals Vital Signs Date Time Temp Pulse Resp B/P Pulse Ox O2 Delivery O2 Flow Rate FiO2 12/30/16 07:30 97.4 86 18 116/59 98 12/29/16 19:30 Room Air Intake and Output 12/29/16 12/29/16 12/30/16 15:00 23:00 07:00 Intake Total 360 ml 800 ml Balance 360 ml 800 ml Exam General: The patient is well-developed, Not in acute distress. HEENT: Atraumatic, normocephalic. The pupils are equal and round . Neck: Supple with full range of motion. Chest: Normal expansion of the thorax during inspiration Lungs: Clear to auscultation bilaterally Heart: Normal S1-S2, Regular rhythm and rate. Abdomen: Soft , nontender, nondistended , bowel sounds are present. Extremities: Right upper and lower extremity weakness 3/5, no edema no cyanosis Neurologic: Normal mental status,The patient is awake, alert and oriented . Results Result Diagram: 12/26/16 0615 12/26/16 0615 Results 24 hrs Laboratory Tests Test 12/29/16 17:21 12/29/16 21:17 12/30/16 07:30 12/30/16 11:41 Bedside Glucose 114 114 105 111 Medications Medications Current Medications Acetaminophen (Tylenol Tab) 650 mg Q6H PRN PO PAIN LEVEL 1-3 OR FEVER; Start at 19:00 Acetaminophen/ Hydrocodone Bitart ([place] (5/325)) 1 tab Q6H PRN PO PAIN LEVEL 4 -6; Start 12/25/16 at 19:00 Magnesium Hydroxide (Milk Of Mag) 30 ml DAILY PRN PO CONSTIPATION; Start at 19:00 Bisacodyl (Dulcolax) 5 mg DAILY PRN PO CONSTIPATION; Start 12/25/16 at 19:00 Atorvastatin Calcium (Lipitor) 40 mg HS PO Last administered on 12/29/16 21:19 ; Admin Dose 40 MG; Start 12/25/16 at 21:00 Glucose (Glutose) 15 gm Q15M PRN PO DECREASED GLUCOSE; Start 12/25/16 at 19:00 Glucose (Glutose) 22.5 gm Q15M PRN PO DECREASED GLUCOSE; Start 12/25/16 at 19:00 Dextrose (D50w Syringe) 25 ml Q15M PRN IV DECREASED GLUCOSE; Start 12/25/16 at 19:00 Dextrose (D50w Syringe) 50 ml Q15M PRN IV DECREASED GLUCOSE; Start 12/25/16 at 19:00 Glucagon (Glucagen) 1 mg Q15M PRN IM DECREASED GLUCOSE; Start 12/25/16 at 19:00 Glucose (Glutose) 15 gm Q15M PRN BUCCAL DECREASED GLUCOSE; Start 12/25/16 at 19: 00 Nifedipine (Procardia Xl) 60 mg BID PO Last administered on 12/30/16 08:09; Admin Dose 60 MG; Start 12/25/16 at 21:00 Diagnostic Test (Pha) (Accucheck) 1 ea 02 XX Last administered on 12/26/16 02: 00; Admin Dose 1 EA; Start 12/26/16 at 02:00 Cholecalciferol (Vitamin D) 1,000 unit DAILY PO Last administered on 12/30/16 08:09; Admin Dose 1,000 UNIT; Start 12/26/16 at 09:00 Famotidine (Pepcid) 20 mg BID PO Last administered on 12/30/16 08:10; Admin Dose 20 MG; Start 12/25/16 at 21:00 Lorazepam (Ativan) 0.5 mg Q8H PRN PO ANXIETY; Start 12/25/16 at 19:00 Meclizine HCl (Antivert) 12.5 mg TID PRN PO Vertigo Last administered on 21:05; Admin Dose 12.5 MG; Start 12/25/16 at 19:00 Miscellaneous Information 1 ea NOTE XX ; Start 12/25/16 at 19:00 Docusate Sodium (Colace) 100 mg BID PO Last administered on 12/29/16 08:07; Admin Dose 100 MG; Start 12/26/16 at 09:00 Senna (Senokot) 1 tab HS PO Last administered on 12/26/16 22:07; Admin Dose 1 TAB; Start 12/26/16 at 21:00 Lactulose (Enulose) 20 gm DAILY PRN PO CONSTIPATION; Start 12/26/16 at 04:30 Aspirin (Aspirin) 81 mg DAILY PO Last administered on 12/30/16 08:09; Admin Dose 81 MG; Start 12/26/16 at 12:00 Ondansetron HCl (Zofran Inj) 4 mg Q6H PRN IV NAUSEA AND/OR VOMITING Last administered on 12/27/16 01:00; Admin Dose 4 MG; Start 12/27/16 at 00:30 Insulin Glargine (Lantus) 12 unit HS SC Last administered on 12/29/16 21:25; Admin Dose 12 UNIT; Start 12/27/16 at 21:00 ALMA HURST MD Dec 30, 2016 12:51
[2016-12-30 20:40] VITALS: BP 127/57; PULSE 70; RESP 70
[2016-12-30] MEDS: ATORVASTATIN 40 MG TAB PO SCH (20:43)
[2016-12-30] MEDS: INSULIN GLARGINE [LANtus] 3 ML PEN SC SCH (21:00)
[2016-12-30] MEDS: SENNA TAB PO SCH (21:00)
[2016-12-31] MEDS: ACCUCHECK XX SCH (02:00)
[2016-12-31 07:20] VITALS: BP 120/69; PULSE 71; RESP 18
[2016-12-31] MEDS: INSULIN ASPART [NOVOLOG] 3 ML PEN SC SCH ×4 (07:22→21:00)
[2016-12-31] MEDS: metFORMIN 500 MG TAB PO SCH ×2 (08:45→17:32)
[2016-12-31] MEDS: FAMOTIDINE 20 MG TAB PO SCH ×2 (08:45→20:51)
[2016-12-31] MEDS: NIFEdipine (XL) 60 MG TAB PO SCH ×2 (08:45→20:51)
[2016-12-31] MEDS: HYDROCODONE/APAP (5/325) TAB PO PRN ×2 (08:45→12:22)
[2016-12-31] MEDS: ASPIRIN 81 MG TAB PO SCH (08:46)
[2016-12-31] MEDS: CHOLECALCIFEROL 1,000 UNIT TAB PO SCH (08:46)
[2016-12-31] MEDS: DOCUSATE SODIUM 100 MG CAP PO SCH ×2 (08:46→21:00)
--- NOTE | 2016-12-31 11:58 | CONS ---
Date/Time of Note Date/Time of Note DATE: 12/31/16 TIME: 11:56 Consult Date/Type/Reason Admit Date/Time Dec 25, 2016 at 17:11 Subjective Patient in good spirits Objective pulm- cta min 75 feet Vital Signs Date Time Temp Pulse Resp B/P Pulse Ox O2 Delivery O2 Flow Rate FiO2 12/31/16 07:20 97.8 71 18 120/69 96 Room Air Intake and Output 12/30/16 12/30/16 12/31/16 15:00 23:00 07:00 Intake Total 300 ml 200 ml Balance 300 ml 200 ml Results/Medications Results 24 hrs Laboratory Tests Test 12/30/16 17:25 12/30/16 20:51 12/31/16 07:15 Bedside Glucose 113 147 114 Medications Current Medications Acetaminophen (Tylenol Tab) 650 mg Q6H PRN PO PAIN LEVEL 1-3 OR FEVER; Start at 19:00 Acetaminophen/ Hydrocodone Bitart ([place] (5/325)) 1 tab Q6H PRN PO PAIN LEVEL 4 -6 Last administered on 12/31/16 08:45; Admin Dose 1 TAB; Start 12/25/16 at 19: 00 Magnesium Hydroxide (Milk Of Mag) 30 ml DAILY PRN PO CONSTIPATION; Start at 19:00 Bisacodyl (Dulcolax) 5 mg DAILY PRN PO CONSTIPATION; Start 12/25/16 at 19:00 Atorvastatin Calcium (Lipitor) 40 mg HS PO Last administered on 12/30/16 20:43 ; Admin Dose 40 MG; Start 12/25/16 at 21:00 Glucose (Glutose) 15 gm Q15M PRN PO DECREASED GLUCOSE; Start 12/25/16 at 19:00 Glucose (Glutose) 22.5 gm Q15M PRN PO DECREASED GLUCOSE; Start 12/25/16 at 19:00 Dextrose (D50w Syringe) 25 ml Q15M PRN IV DECREASED GLUCOSE; Start 12/25/16 at 19:00 Dextrose (D50w Syringe) 50 ml Q15M PRN IV DECREASED GLUCOSE; Start 12/25/16 at 19:00 Glucagon (Glucagen) 1 mg Q15M PRN IM DECREASED GLUCOSE; Start 12/25/16 at 19:00 Glucose (Glutose) 15 gm Q15M PRN BUCCAL DECREASED GLUCOSE; Start 12/25/16 at 19: 00 Nifedipine (Procardia Xl) 60 mg BID PO Last administered on 12/31/16 08:45; Admin Dose 60 MG; Start 12/25/16 at 21:00 Diagnostic Test (Pha) (Accucheck) 1 ea 02 XX Last administered on 12/26/16 02: 00; Admin Dose 1 EA; Start 12/26/16 at 02:00 Cholecalciferol (Vitamin D) 1,000 unit DAILY PO Last administered on 12/31/16 08:46; Admin Dose 1,000 UNIT; Start 12/26/16 at 09:00 Famotidine (Pepcid) 20 mg BID PO Last administered on 12/31/16 08:45; Admin Dose 20 MG; Start 12/25/16 at 21:00 Lorazepam (Ativan) 0.5 mg Q8H PRN PO ANXIETY; Start 12/25/16 at 19:00 Meclizine HCl (Antivert) 12.5 mg TID PRN PO Vertigo Last administered on 21:05; Admin Dose 12.5 MG; Start 12/25/16 at 19:00 Miscellaneous Information 1 ea NOTE XX ; Start 12/25/16 at 19:00 Docusate Sodium (Colace) 100 mg BID PO Last administered on 12/29/16 08:07; Admin Dose 100 MG; Start 12/26/16 at 09:00 Senna (Senokot) 1 tab HS PO Last administered on 12/26/16 22:07; Admin Dose 1 TAB; Start 12/26/16 at 21:00 Lactulose (Enulose) 20 gm DAILY PRN PO CONSTIPATION; Start 12/26/16 at 04:30 Aspirin (Aspirin) 81 mg DAILY PO Last administered on 12/31/16 08:46; Admin Dose 81 MG; Start 12/26/16 at 12:00 Ondansetron HCl (Zofran Inj) 4 mg Q6H PRN IV NAUSEA AND/OR VOMITING Last administered on 12/27/16 01:00; Admin Dose 4 MG; Start 12/27/16 at 00:30 Insulin Glargine (Lantus) 12 unit HS SC Last administered on 12/30/16 21:00; Admin Dose 12 UNIT; Start 12/27/16 at 21:00 Assessment/Plan Additional Assessment/Plan Rehab- Left pontine infarct cerebrovascular accident with right-sided weakness in addition to ANA intracranial aneurysm. Continue rehab activites. Pt reports ambulating better with AFO. Dysphagia-tolerating diet Hypertension. Uncontrolled diabetes mellitus. Cervical spinal stenosis. AURE BILLY MD Dec 31, 2016 11:58
--- NOTE | 2016-12-31 14:41 | PN ---
Date/Time of Note Date/Time of Note DATE: 12/31/16 TIME: 14:40 Assessment/Plan VTE Prophylaxis VTE Prophylaxis Intervention: SCD's Lines/Catheters [facility] Urinary Cath still in place: No Assessment/Plan Chief Complaint/Hosp Course ASSESSMENT AND PLAN: 1. Acute left pontine infarct. Continue aspirin, statin. Continue to monitor and treat blood pressure with nifedipine. Continue physical therapy and occupational therapy. 2. Incidental finding of cerebral aneurysm, stable. The patient was seen and evaluated by neurosurgery during the course of the hospitalization. Will plan to follow up with neurosurgery as outpatient. 3. Essential hypertension, well controlled on nifedipine. 4. Diabetes mellitus type 2. Continue Lantus, insulin sliding scale, low- carbohydrate diet. 5. Dyslipidemia. Continue statin. 6. Vitamin D deficiency. Continue vitamin D supplementation. 7. For deep venous thrombosis prophylaxis, the patient is ambulating and has been started on sequential compression devices. Refrain from using any pharmacologic DVT prophylaxis at this time secondary to incidental finding of cerebral aneurysm. 8. For gastrointestinal prophylaxis, on Pepcid. We will continue to monitor patient closely. Further recommendations, management and treatment as per clinical course. Problems: Subjective 24 Hr Interval Summary Free Text/Dictation No acute changes Max assist with ambulation Tolerating oral intake Exam/Review of Systems Vital Signs Vitals Vital Signs Date Time Temp Pulse Resp B/P Pulse Ox O2 Delivery O2 Flow Rate FiO2 12/31/16 07:20 97.8 71 18 120/69 96 Room Air Intake and Output 12/30/16 12/30/16 12/31/16 15:00 23:00 07:00 Intake Total 300 ml 200 ml Balance 300 ml 200 ml Exam General: The patient is well-developed, Not in acute distress. HEENT: Atraumatic, normocephalic. The pupils are equal and round . Neck: Supple with full range of motion. Chest: Normal expansion of the thorax during inspiration Lungs: Clear to auscultation bilaterally Heart: Normal S1-S2, Regular rhythm and rate. Abdomen: Soft , nontender, nondistended , bowel sounds are present. Extremities: Right upper and lower extremity weakness 3/5 , no edema no cyanosis Neurologic: Normal mental status,The patient is awake, alert and oriented . Results Results 24 hrs Laboratory Tests Test 12/30/16 17:25 12/30/16 20:51 12/31/16 07:15 12/31/16 11:51 Bedside Glucose 113 147 114 171 Medications Medications Current Medications Acetaminophen (Tylenol Tab) 650 mg Q6H PRN PO PAIN LEVEL 1-3 OR FEVER; Start at 19:00 Acetaminophen/ Hydrocodone Bitart ([place] (5/325)) 1 tab Q6H PRN PO PAIN LEVEL 4 -6 Last administered on 12/31/16 12:22; Admin Dose 1 TAB; Start 12/25/16 at 19: 00 Magnesium Hydroxide (Milk Of Mag) 30 ml DAILY PRN PO CONSTIPATION; Start at 19:00 Bisacodyl (Dulcolax) 5 mg DAILY PRN PO CONSTIPATION; Start 12/25/16 at 19:00 Atorvastatin Calcium (Lipitor) 40 mg HS PO Last administered on 12/30/16 20:43 ; Admin Dose 40 MG; Start 12/25/16 at 21:00 Glucose (Glutose) 15 gm Q15M PRN PO DECREASED GLUCOSE; Start 12/25/16 at 19:00 Glucose (Glutose) 22.5 gm Q15M PRN PO DECREASED GLUCOSE; Start 12/25/16 at 19:00 Dextrose (D50w Syringe) 25 ml Q15M PRN IV DECREASED GLUCOSE; Start 12/25/16 at 19:00 Dextrose (D50w Syringe) 50 ml Q15M PRN IV DECREASED GLUCOSE; Start 12/25/16 at 19:00 Glucagon (Glucagen) 1 mg Q15M PRN IM DECREASED GLUCOSE; Start 12/25/16 at 19:00 Glucose (Glutose) 15 gm Q15M PRN BUCCAL DECREASED GLUCOSE; Start 12/25/16 at 19: 00 Nifedipine (Procardia Xl) 60 mg BID PO Last administered on 12/31/16 08:45; Admin Dose 60 MG; Start 12/25/16 at 21:00 Diagnostic Test (Pha) (Accucheck) 1 ea 02 XX Last administered on 12/26/16 02: 00; Admin Dose 1 EA; Start 12/26/16 at 02:00 Cholecalciferol (Vitamin D) 1,000 unit DAILY PO Last administered on 12/31/16 08:46; Admin Dose 1,000 UNIT; Start 12/26/16 at 09:00 Famotidine (Pepcid) 20 mg BID PO Last administered on 12/31/16 08:45; Admin Dose 20 MG; Start 12/25/16 at 21:00 Lorazepam (Ativan) 0.5 mg Q8H PRN PO ANXIETY; Start 12/25/16 at 19:00 Meclizine HCl (Antivert) 12.5 mg TID PRN PO Vertigo Last administered on 21:05; Admin Dose 12.5 MG; Start 12/25/16 at 19:00 Miscellaneous Information 1 ea NOTE XX ; Start 12/25/16 at 19:00 Docusate Sodium (Colace) 100 mg BID PO Last administered on 12/29/16 08:07; Admin Dose 100 MG; Start 12/26/16 at 09:00 Senna (Senokot) 1 tab HS PO Last administered on 12/26/16 22:07; Admin Dose 1 TAB; Start 12/26/16 at 21:00 Lactulose (Enulose) 20 gm DAILY PRN PO CONSTIPATION; Start 12/26/16 at 04:30 Aspirin (Aspirin) 81 mg DAILY PO Last administered on 12/31/16 08:46; Admin Dose 81 MG; Start 12/26/16 at 12:00 Ondansetron HCl (Zofran Inj) 4 mg Q6H PRN IV NAUSEA AND/OR VOMITING Last administered on 12/27/16 01:00; Admin Dose 4 MG; Start 12/27/16 at 00:30 Insulin Glargine (Lantus) 12 unit HS SC Last administered on 12/30/16 21:00; Admin Dose 12 UNIT; Start 12/27/16 at 21:00 ALMA HURST MD Dec 31, 2016 14:41
[2016-12-31 19:46] VITALS: BP 136/74; RESP 20
[2016-12-31] MEDS: ATORVASTATIN 40 MG TAB PO SCH (20:51)
[2016-12-31] MEDS: SENNA TAB PO SCH (21:00)
[2016-12-31] MEDS: INSULIN GLARGINE [LANtus] 3 ML PEN SC SCH (21:09)
[2017-01-01] MEDS: ACCUCHECK XX SCH (02:00)
[2017-01-01] MEDS: INSULIN ASPART [NOVOLOG] 3 ML PEN SC SCH ×4 (07:30→20:45)
[2017-01-01 08:00] VITALS: BP 110/57; PULSE 70; RESP 20
[2017-01-01] MEDS: metFORMIN 500 MG TAB PO SCH ×2 (08:18→17:44)
[2017-01-01] MEDS: FAMOTIDINE 20 MG TAB PO SCH ×2 (08:19→20:41)
[2017-01-01] MEDS: ASPIRIN 81 MG TAB PO SCH (08:19)
[2017-01-01] MEDS: CHOLECALCIFEROL 1,000 UNIT TAB PO SCH (08:19)
[2017-01-01] MEDS: NIFEdipine (XL) 60 MG TAB PO SCH ×2 (08:20→20:41)
[2017-01-01] MEDS: DOCUSATE SODIUM 100 MG CAP PO SCH ×2 (08:21→20:44)
--- NOTE | 2017-01-01 10:56 | CONS ---
Date/Time of Note Date/Time of Note DATE: 01/01/17 TIME: 10:55 Consult Date/Type/Reason Admit Date/Time Dec 25, 2016 at 17:11 Subjective In good spirits Objective doing very well with therapy program, with improving UE strength min assist ambulation Vital Signs Date Time Temp Pulse Resp B/P Pulse Ox O2 Delivery O2 Flow Rate FiO2 01/01/17 08:00 97.7 70 20 110/57 99 Room Air Results/Medications Results 24 hrs Laboratory Tests Test 12/31/16 11:51 12/31/16 17:14 12/31/16 20:45 01/01/17 07:27 Bedside Glucose 171 119 177 179 Medications Current Medications Acetaminophen (Tylenol Tab) 650 mg Q6H PRN PO PAIN LEVEL 1-3 OR FEVER; Start at 19:00 Acetaminophen/ Hydrocodone Bitart ([place] (5/325)) 1 tab Q6H PRN PO PAIN LEVEL 4 -6 Last administered on 12/31/16 12:22; Admin Dose 1 TAB; Start 12/25/16 at 19: 00 Magnesium Hydroxide (Milk Of Mag) 30 ml DAILY PRN PO CONSTIPATION; Start at 19:00 Bisacodyl (Dulcolax) 5 mg DAILY PRN PO CONSTIPATION; Start 12/25/16 at 19:00 Atorvastatin Calcium (Lipitor) 40 mg HS PO Last administered on 12/31/16 20:51 ; Admin Dose 40 MG; Start 12/25/16 at 21:00 Glucose (Glutose) 15 gm Q15M PRN PO DECREASED GLUCOSE; Start 12/25/16 at 19:00 Glucose (Glutose) 22.5 gm Q15M PRN PO DECREASED GLUCOSE; Start 12/25/16 at 19:00 Dextrose (D50w Syringe) 25 ml Q15M PRN IV DECREASED GLUCOSE; Start 12/25/16 at 19:00 Dextrose (D50w Syringe) 50 ml Q15M PRN IV DECREASED GLUCOSE; Start 12/25/16 at 19:00 Glucagon (Glucagen) 1 mg Q15M PRN IM DECREASED GLUCOSE; Start 12/25/16 at 19:00 Glucose (Glutose) 15 gm Q15M PRN BUCCAL DECREASED GLUCOSE; Start 12/25/16 at 19: 00 Nifedipine (Procardia Xl) 60 mg BID PO Last administered on 12/31/16 20:51; Admin Dose 60 MG; Start 12/25/16 at 21:00 Diagnostic Test (Pha) (Accucheck) 1 ea 02 XX Last administered on 12/26/16 02: 00; Admin Dose 1 EA; Start 12/26/16 at 02:00 Cholecalciferol (Vitamin D) 1,000 unit DAILY PO Last administered on 01/01/17 08:19; Admin Dose 1,000 UNIT; Start 12/26/16 at 09:00 Famotidine (Pepcid) 20 mg BID PO Last administered on 01/01/17 08:19; Admin Dose 20 MG; Start 12/25/16 at 21:00 Lorazepam (Ativan) 0.5 mg Q8H PRN PO ANXIETY; Start 12/25/16 at 19:00 Meclizine HCl (Antivert) 12.5 mg TID PRN PO Vertigo Last administered on 21:05; Admin Dose 12.5 MG; Start 12/25/16 at 19:00 Miscellaneous Information 1 ea NOTE XX ; Start 12/25/16 at 19:00 Docusate Sodium (Colace) 100 mg BID PO Last administered on 12/29/16 08:07; Admin Dose 100 MG; Start 12/26/16 at 09:00 Senna (Senokot) 1 tab HS PO Last administered on 12/26/16 22:07; Admin Dose 1 TAB; Start 12/26/16 at 21:00 Lactulose (Enulose) 20 gm DAILY PRN PO CONSTIPATION; Start 12/26/16 at 04:30 Aspirin (Aspirin) 81 mg DAILY PO Last administered on 01/01/17 08:19; Admin Dose 81 MG; Start 12/26/16 at 12:00 Ondansetron HCl (Zofran Inj) 4 mg Q6H PRN IV NAUSEA AND/OR VOMITING Last administered on 12/27/16 01:00; Admin Dose 4 MG; Start 12/27/16 at 00:30 Insulin Glargine (Lantus) 12 unit HS SC Last administered on 12/31/16 21:09; Admin Dose 12 UNIT; Start 12/27/16 at 21:00 Assessment/Plan Additional Assessment/Plan Rehab- Left pontine infarct cerebrovascular accident with right-sided weakness in addition to ANA intracranial aneurysm. Continue rehab interdisciplinary program Dysphagia-tolerating diet Hypertension. Uncontrolled diabetes mellitus. Cervical spinal stenosis. AURE BILLY MD Jan 01, 2017 10:56
--- NOTE | 2017-01-01 11:49 | PN ---
Date/Time of Note Date/Time of Note DATE: 01/01/17 TIME: 11:48 Assessment/Plan VTE Prophylaxis VTE Prophylaxis Intervention: SCD's Lines/Catheters IV Catheter Type (from Nrs): Saline Lock Urinary Cath still in place: No Assessment/Plan Assessment/Plan 1. Acute left pontine infarct. Continue aspirin, statin. Continue to monitor and treat blood pressure with nifedipine. Continue physical therapy and occupational therapy. 2. Incidental finding of cerebral aneurysm, stable. The patient was seen and evaluated by neurosurgery during the course of the hospitalization. Will plan to follow up with neurosurgery as outpatient. 3. Essential hypertension, well controlled on nifedipine. 4. Diabetes mellitus type 2. Continue Lantus, insulin sliding scale, low- carbohydrate diet. 5. Dyslipidemia. Continue statin. 6. Vitamin D deficiency. Continue vitamin D supplementation. 7. For deep venous thrombosis prophylaxis, the patient is ambulating and has been started on sequential compression devices. Refrain from using any pharmacologic DVT prophylaxis at this time secondary to incidental finding of cerebral aneurysm. 8. For gastrointestinal prophylaxis, on Pepcid. Time spent is more than 45 mintues Subjective 24 Hr Interval Summary Free Text/Dictation no acute events, pt is doing well with physical therapy Exam/Review of Systems Vital Signs Vitals Vital Signs Date Time Temp Pulse Resp B/P Pulse Ox O2 Delivery O2 Flow Rate FiO2 01/01/17 08:00 97.7 70 20 110/57 99 Room Air Exam Chest: Normal expansion of the thorax during inspiration Lungs: Clear to auscultation bilaterally Heart: Normal S1-S2, Regular rhythm and rate. Abdomen: Soft , nontender, nondistended , bowel sounds are present. Extremities: Right upper and lower extremity weakness 3/5 , no edema no cyanosis Neurologic: Normal mental status,The patient is awake, alert and oriented . Results Results 24 hrs Laboratory Tests Test 12/31/16 11:51 12/31/16 17:14 12/31/16 20:45 01/01/17 07:27 Bedside Glucose 171 119 177 179 Medications Medications Current Medications Acetaminophen (Tylenol Tab) 650 mg Q6H PRN PO PAIN LEVEL 1-3 OR FEVER; Start at 19:00 Acetaminophen/ Hydrocodone Bitart ([place] (5/325)) 1 tab Q6H PRN PO PAIN LEVEL 4 -6 Last administered on 12/31/16t 12:22; Admin Dose 1 TAB; Start 12/25/16 at 19: 00 Magnesium Hydroxide (Milk Of Mag) 30 ml DAILY PRN PO CONSTIPATION; Start at 19:00 Bisacodyl (Dulcolax) 5 mg DAILY PRN PO CONSTIPATION; Start 12/25/16 at 19:00 Atorvastatin Calcium (Lipitor) 40 mg HS PO Last administered on 12/31/16 20:51 ; Admin Dose 40 MG; Start 12/25/16 at 21:00 Glucose (Glutose) 15 gm Q15M PRN PO DECREASED GLUCOSE; Start 12/25/16 at 19:00 Glucose (Glutose) 22.5 gm Q15M PRN PO DECREASED GLUCOSE; Start 12/25/16 at 19:00 Dextrose (D50w Syringe) 25 ml Q15M PRN IV DECREASED GLUCOSE; Start 12/25/16 at 19:00 Dextrose (D50w Syringe) 50 ml Q15M PRN IV DECREASED GLUCOSE; Start 12/25/16 at 19:00 Glucagon (Glucagen) 1 mg Q15M PRN IM DECREASED GLUCOSE; Start 12/25/16 at 19:00 Glucose (Glutose) 15 gm Q15M PRN BUCCAL DECREASED GLUCOSE; Start 12/25/16 at 19: 00 Nifedipine (Procardia Xl) 60 mg BID PO Last administered on 12/31/16 20:51; Admin Dose 60 MG; Start 12/25/16 at 21:00 Diagnostic Test (Pha) (Accucheck) 1 ea 02 XX Last administered on 12/26/16 02: 00; Admin Dose 1 EA; Start 12/26/16 at 02:00 Cholecalciferol (Vitamin D) 1,000 unit DAILY PO Last administered on 01/01/17 08:19; Admin Dose 1,000 UNIT; Start 12/26/16 at 09:00 Famotidine (Pepcid) 20 mg BID PO Last administered on 01/01/17 08:19; Admin Dose 20 MG; Start 12/25/16 at 21:00 Lorazepam (Ativan) 0.5 mg Q8H PRN PO ANXIETY; Start 12/25/16 at 19:00 Meclizine HCl (Antivert) 12.5 mg TID PRN PO Vertigo Last administered on 21:05; Admin Dose 12.5 MG; Start 12/25/16 at 19:00 Miscellaneous Information 1 ea NOTE XX ; Start 12/25/16 at 19:00 Docusate Sodium (Colace) 100 mg BID PO Last administered on 12/29/16 08:07; Admin Dose 100 MG; Start 12/26/16 at 09:00 Senna (Senokot) 1 tab HS PO Last administered on 12/26/16 22:07; Admin Dose 1 TAB; Start 12/26/16 at 21:00 Lactulose (Enulose) 20 gm DAILY PRN PO CONSTIPATION; Start 12/26/16 at 04:30 Aspirin (Aspirin) 81 mg DAILY PO Last administered on 01/01/17 08:19; Admin Dose 81 MG; Start 12/26/16 at 12:00 Ondansetron HCl (Zofran Inj) 4 mg Q6H PRN IV NAUSEA AND/OR VOMITING Last administered on 12/27/16 01:00; Admin Dose 4 MG; Start 12/27/16 at 00:30 Insulin Glargine (Lantus) 12 unit HS SC Last administered on 12/31/16 21:09; Admin Dose 12 UNIT; Start 12/27/16 at 21:00 CHANI REED MD Jan 01, 2017 11:49
--- NOTE | 2017-01-01 19:03 | CONS ---
DATE OF ADMISSION: 12/25/2016 DATE OF CONSULTATION: 01/01/2017 TYPE OF CONSULTATION: Psychological. REFERRING PHYSICIAN: Reggie Moran MD CONSULTING PSYCHOLOGIST: Martina Gallardo, PhD REASON FOR CONSULTATION: This consultation was requested by Dr. Agata Moran in order to evaluate the cognitive and emotional functioning of this patient related to her present medical condition. HISTORY OF PRESENT ILLNESS: The patient is a 66-year-old female. The patient reportedly had no sig nificant past medical history. The patient was having right-sided weakness and brought into the [facility] room. CT scan of the brain was negative for acute findings. An MRI of the brain was obtaine d which showed acute left pontine infarct and there was an incidental finding of a cerebral aneurysm . Patient was then cleared medically and sent to the acute rehabilitation unit for acute multidisci plinary rehabilitation. The patient is motivated to get better. The patient is under a great deal of stress at the present time. The patient is frustrated about what happened to her. The patient d oes report that she has sudden crying spells and is upset about this. She also reports to be anxiou s and depressed. The patient is motivated to try and regain as much function as she can. FAMILY AND SOCIAL HISTORY: The patient lives in a house in [place] with her and a padmini mmate. The patient's was present during the consultation with the patient's permission. Th e patient does want to return home after discharge. MEDICATIONS: The patient is currently on Ativan 0.5 mg q.8 hours p.r.n. SUBSTANCE USE: The patient reports that she does not smoke. The patient reports that she uses alco hol rarely, but at times socially. The patient does not use other drugs. MENTAL STATUS EXAMINATION: APPEARANCE: The patient was seen in her wheelchair. She is of average height and weight. The [facility] reports that she is right-handed. BEHAVIOR: The patient was cooperative during the consultation. The patient did attempt to answer a ll questions presented to her by the interviewer. MOOD AND AFFECT: The patient's mood appears to be somewhat frustrated and depressed. Affect did ap pear to be slightly anxious. PERCEPTION: The patient reports no hallucinations or delusions. The patient was alert to person, p lace, situation and time. MEMORY AND COGNITION: The patient's memory and cognition appear to be basically intact given the fa ct that she just had a stroke. The patient was able to say the name of the hospital. The patient natali jasmine knew that she was in the acute rehabilitation unit. The patient knew the month and the year. T he patient knew the mental retardation aide, the governor of the state, and the mayor of the [facility]. The patient was able to spell "world" backwards. The patient was able to do 1 serial 7 subtr action from 100, but then made an error. Overall, given the fact that the patient just had a stroke , it appears that her cognition are intact overall. INTELLIGENCE: Intelligence appears to fall in the average to above-average range. INSIGHT: Good. JUDGMENT: Good. THOUGHT CONTENT: The patient is concerned about her current medical condition. She is upset about what happened to her. The patient is motivated to get better. The patient is thinking about retiri ng as she works in real estate and her is retired, and as a result of this, they in fact dec ided to retire and not work any longer. This probably would be better for her stress level. DISCUSSION: The patient can likely benefit from some cognitive/behavioral psychotherapy while she i s on the unit. This psychotherapy would focus on her underlying level of frustration and depression as well as her anxiety. DIAGNOSTIC IMPRESSION: F06.31. 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 Thank you very much, Dr. Agata Moran, for referring this individual. Please do not hesitate to ca ll if you have additional questions. Dictated By: MARTINA GALLARDO PHD INESSA/BRII Conf#: [id number] DID#: [id number]
[2017-01-01 20:00] VITALS: BP 139/70; RESP 18
[2017-01-01] MEDS: ATORVASTATIN 40 MG TAB PO SCH (20:41)
[2017-01-01] MEDS: INSULIN GLARGINE [LANtus] 3 ML PEN SC SCH (20:43)
[2017-01-01] MEDS: SENNA TAB PO SCH (20:44)
[2017-01-02] MEDS: ACCUCHECK XX SCH (02:00)
[2017-01-02] MEDS: INSULIN ASPART [NOVOLOG] 3 ML PEN SC SCH ×4 (07:35→21:00)
[2017-01-02 08:25] VITALS: BP 127/61; PULSE 62; RESP 20
[2017-01-02] MEDS: DOCUSATE SODIUM 100 MG CAP PO SCH ×2 (09:00→21:00)
[2017-01-02] MEDS: ASPIRIN 81 MG TAB PO SCH (09:12)
[2017-01-02] MEDS: FAMOTIDINE 20 MG TAB PO SCH ×2 (09:12→21:00)
[2017-01-02] MEDS: NIFEdipine (XL) 60 MG TAB PO SCH ×2 (09:12→21:00)
[2017-01-02] MEDS: metFORMIN 500 MG TAB PO SCH ×2 (09:12→17:54)
[2017-01-02] MEDS: CHOLECALCIFEROL 1,000 UNIT TAB PO SCH (09:13)
--- NOTE | 2017-01-02 12:52 | CONS ---
Date/Time of Note Date/Time of Note DATE: 01/02/17 TIME: 12:51 Consult Date/Type/Reason Admit Date/Time Dec 25, 2016 at 17:11 Subjective Continued improvement in RUE strength Objective pulm- cta card-S1S2 abd-soft min assist Vital Signs Date Time Temp Pulse Resp B/P Pulse Ox O2 Delivery O2 Flow Rate FiO2 01/02/17 08:25 97.6 62 20 127/61 99 Room Air Intake and Output 01/01/17 01/01/17 01/02/17 15:00 23:00 07:00 Intake Total 850 ml Balance 850 ml Results/Medications Results 24 hrs Laboratory Tests Test 01/01/17 17:21 01/01/17 20:40 01/02/17 07:36 01/02/17 11:36 Bedside Glucose 145 149 116 146 Medications Current Medications Acetaminophen (Tylenol Tab) 650 mg Q6H PRN PO PAIN LEVEL 1-3 OR FEVER; Start at 19:00 Acetaminophen/ Hydrocodone Bitart ([place] (5/325)) 1 tab Q6H PRN PO PAIN LEVEL 4 -6 Last administered on 12/31/16 12:22; Admin Dose 1 TAB; Start 12/25/16 at 19: 00 Magnesium Hydroxide (Milk Of Mag) 30 ml DAILY PRN PO CONSTIPATION; Start at 19:00 Bisacodyl (Dulcolax) 5 mg DAILY PRN PO CONSTIPATION; Start 12/25/16 at 19:00 Atorvastatin Calcium (Lipitor) 40 mg HS PO Last administered on 01/01/17 20:41 ; Admin Dose 40 MG; Start 12/25/16 at 21:00 Glucose (Glutose) 15 gm Q15M PRN PO DECREASED GLUCOSE; Start 12/25/16 at 19:00 Glucose (Glutose) 22.5 gm Q15M PRN PO DECREASED GLUCOSE; Start 12/25/16 at 19:00 Dextrose (D50w Syringe) 25 ml Q15M PRN IV DECREASED GLUCOSE; Start 12/25/16 at 19:00 Dextrose (D50w Syringe) 50 ml Q15M PRN IV DECREASED GLUCOSE; Start 12/25/16 at 19:00 Glucagon (Glucagen) 1 mg Q15M PRN IM DECREASED GLUCOSE; Start 12/25/16 at 19:00 Glucose (Glutose) 15 gm Q15M PRN BUCCAL DECREASED GLUCOSE; Start 12/25/16 at 19: 00 Nifedipine (Procardia Xl) 60 mg BID PO Last administered on 01/02/17 09:12; Admin Dose 60 MG; Start 12/25/16 at 21:00 Diagnostic Test (Pha) (Accucheck) 1 ea 02 XX Last administered on 12/26/16 02: 00; Admin Dose 1 EA; Start 12/26/16 at 02:00 Cholecalciferol (Vitamin D) 1,000 unit DAILY PO Last administered on 01/02/17 09:13; Admin Dose 1,000 UNIT; Start 12/26/16 at 09:00 Famotidine (Pepcid) 20 mg BID PO Last administered on 01/02/17 09:12; Admin Dose 20 MG; Start 12/25/16 at 21:00 Lorazepam (Ativan) 0.5 mg Q8H PRN PO ANXIETY; Start 12/25/16 at 19:00 Meclizine HCl (Antivert) 12.5 mg TID PRN PO Vertigo Last administered on 21:05; Admin Dose 12.5 MG; Start 12/25/16 at 19:00 Miscellaneous Information 1 ea NOTE XX ; Start 12/25/16 at 19:00 Docusate Sodium (Colace) 100 mg BID PO Last administered on 12/29/16 08:07; Admin Dose 100 MG; Start 12/26/16 at 09:00 Senna (Senokot) 1 tab HS PO Last administered on 12/26/16 22:07; Admin Dose 1 TAB; Start 12/26/16 at 21:00 Lactulose (Enulose) 20 gm DAILY PRN PO CONSTIPATION; Start 12/26/16 at 04:30 Aspirin (Aspirin) 81 mg DAILY PO Last administered on 01/02/17 09:12; Admin Dose 81 MG; Start 12/26/16 at 12:00 Ondansetron HCl (Zofran Inj) 4 mg Q6H PRN IV NAUSEA AND/OR VOMITING Last administered on 12/27/16 01:00; Admin Dose 4 MG; Start 12/27/16 at 00:30 Insulin Glargine (Lantus) 12 unit HS SC Last administered on 2/15/17at 20:43; Admin Dose 12 UNIT; Start 12/27/16 at 21:00 Assessment/Plan Additional Assessment/Plan Rehab- Left pontine infarct cerebrovascular accident with right-sided weakness in addition to ANA intracranial aneurysm. Continue rehab therapy program Dysphagia-tolerating diet Hypertension-stable Diabetes mellitus- monitor BS Cervical spinal stenosis. AURE BILLY MD Jan 02, 2017 12:52
[2017-01-02 20:06] VITALS: BP 133/67; PULSE 72; RESP 16
[2017-01-02] MEDS: INSULIN GLARGINE [LANtus] 3 ML PEN SC SCH (21:00)
[2017-01-02] MEDS: SENNA TAB PO SCH (21:00)
[2017-01-02] MEDS: ATORVASTATIN 40 MG TAB PO SCH (21:00)
[2017-01-03] MEDS: ACCUCHECK XX SCH (02:00)
[2017-01-03 07:16] VITALS: BP 136/64; PULSE 60; RESP 16
[2017-01-03] MEDS: INSULIN ASPART [NOVOLOG] 3 ML PEN SC SCH ×4 (07:31→20:47)
[2017-01-03] MEDS: metFORMIN 500 MG TAB PO SCH ×2 (08:08→18:22)
[2017-01-03] MEDS: ASPIRIN 81 MG TAB PO SCH (08:09)
[2017-01-03] MEDS: CHOLECALCIFEROL 1,000 UNIT TAB PO SCH (08:09)
[2017-01-03] MEDS: NIFEdipine (XL) 60 MG TAB PO SCH ×2 (08:09→20:46)
[2017-01-03] MEDS: DOCUSATE SODIUM 100 MG CAP PO SCH ×2 (08:12→20:46)
[2017-01-03] MEDS: FAMOTIDINE 20 MG TAB PO SCH ×2 (08:12→20:47)
--- NOTE | 2017-01-03 12:31 | CONS ---
Date/Time of Note Date/Time of Note DATE: 01/03/17 TIME: 12:30 Consult Date/Type/Reason Admit Date/Time Dec 25, 2016 at 17:11 Subjective patient motivated and pleased with her progress Objective pulm- cta card-s1s2 min assist ambulation Vital Signs Date Time Temp Pulse Resp B/P Pulse Ox O2 Delivery O2 Flow Rate FiO2 01/03/17 07:16 97.5 60 16 136/64 96 Room Air Intake and Output 01/02/17 01/02/17 01/03/17 15:00 23:00 07:00 Intake Total 480 ml 240 ml 300 ml Balance 480 ml 240 ml 300 ml Results/Medications Results 24 hrs Laboratory Tests Test 01/02/17 16:59 01/02/17 21:06 01/03/17 06:50 01/03/17 11:57 Bedside Glucose 117 140 140 169 Medications Current Medications Acetaminophen (Tylenol Tab) 650 mg Q6H PRN PO PAIN LEVEL 1-3 OR FEVER; Start at 19:00 Acetaminophen/ Hydrocodone Bitart ([place] (5/325)) 1 tab Q6H PRN PO PAIN LEVEL 4 -6 Last administered on 12/31/16 12:22; Admin Dose 1 TAB; Start 12/25/16 at 19: 00 Magnesium Hydroxide (Milk Of Mag) 30 ml DAILY PRN PO CONSTIPATION; Start at 19:00 Bisacodyl (Dulcolax) 5 mg DAILY PRN PO CONSTIPATION; Start 12/25/16 at 19:00 Atorvastatin Calcium (Lipitor) 40 mg HS PO Last administered on 01/01/17 20:41 ; Admin Dose 40 MG; Start 12/25/16 at 21:00 Glucose (Glutose) 15 gm Q15M PRN PO DECREASED GLUCOSE; Start 12/25/16 at 19:00 Glucose (Glutose) 22.5 gm Q15M PRN PO DECREASED GLUCOSE; Start 12/25/16 at 19:00 Dextrose (D50w Syringe) 25 ml Q15M PRN IV DECREASED GLUCOSE; Start 12/25/16 at 19:00 Dextrose (D50w Syringe) 50 ml Q15M PRN IV DECREASED GLUCOSE; Start 12/25/16 at 19:00 Glucagon (Glucagen) 1 mg Q15M PRN IM DECREASED GLUCOSE; Start 12/25/16 at 19:00 Glucose (Glutose) 15 gm Q15M PRN BUCCAL DECREASED GLUCOSE; Start 12/25/16 at 19: 00 Nifedipine (Procardia Xl) 60 mg BID PO Last administered on 01/03/17 08:09; Admin Dose 60 MG; Start 12/25/16 at 21:00 Diagnostic Test (Pha) (Accucheck) 1 ea 02 XX Last administered on 12/26/16 02: 00; Admin Dose 1 EA; Start 12/26/16 at 02:00 Cholecalciferol (Vitamin D) 1,000 unit DAILY PO Last administered on 01/03/17 08:09; Admin Dose 1,000 UNIT; Start 12/26/16 at 09:00 Famotidine (Pepcid) 20 mg BID PO Last administered on 01/02/17 09:12; Admin Dose 20 MG; Start 12/25/16 at 21:00 Lorazepam (Ativan) 0.5 mg Q8H PRN PO ANXIETY; Start 12/25/16 at 19:00 Meclizine HCl (Antivert) 12.5 mg TID PRN PO Vertigo Last administered on 21:05; Admin Dose 12.5 MG; Start 12/25/16 at 19:00 Miscellaneous Information 1 ea NOTE XX ; Start 12/25/16 at 19:00 Docusate Sodium (Colace) 100 mg BID PO Last administered on 12/29/16 08:07; Admin Dose 100 MG; Start 12/26/16 at 09:00 Senna (Senokot) 1 tab HS PO Last administered on 12/26/16 22:07; Admin Dose 1 TAB; Start 12/26/16 at 21:00 Lactulose (Enulose) 20 gm DAILY PRN PO CONSTIPATION; Start 12/26/16 at 04:30 Aspirin (Aspirin) 81 mg DAILY PO Last administered on 01/03/17 08:09; Admin Dose 81 MG; Start 12/26/16 at 12:00 Ondansetron HCl (Zofran Inj) 4 mg Q6H PRN IV NAUSEA AND/OR VOMITING Last administered on 12/27/16 01:00; Admin Dose 4 MG; Start 12/27/16 at 00:30 Insulin Glargine (Lantus) 12 unit HS SC Last administered on 2/15/17at 20:43; Admin Dose 12 UNIT; Start 12/27/16 at 21:00 Assessment/Plan Additional Assessment/Plan Rehab- Left pontine infarct cerebrovascular accident with right-sided weakness in addition to ANA intracranial aneurysm. Continue rehab interdisciplinary treatment plan Dysphagia-improved Hypertension-stable Diabetes mellitus- monitor BS Cervical spinal stenosis. AURE BILLY MD Jan 03, 2017 12:31
--- NOTE | 2017-01-03 14:28 | PN ---
Date/Time of Note Date/Time of Note DATE: 01/03/17 TIME: 14:27 Assessment/Plan VTE Prophylaxis VTE Prophylaxis Intervention: SCD's Lines/Catheters [facility] Saline Lock Urinary Cath still in place: No Assessment/Plan Chief Complaint/Hosp Course ASSESSMENT AND PLAN: 1. Acute left pontine infarct. Continue aspirin, statin. Continue to monitor and treat blood pressure with nifedipine. Continue physical therapy and occupational therapy. 2. Incidental finding of cerebral aneurysm, stable. The patient was seen and evaluated by neurosurgery during the course of the hospitalization. Will plan to follow up with neurosurgery as outpatient. 3. Essential hypertension, well controlled on nifedipine. 4. Diabetes mellitus type 2. Continue Lantus, insulin sliding scale, low- carbohydrate diet. 5. Dyslipidemia. Continue statin. 6. Vitamin D deficiency. Continue vitamin D supplementation. 7. For deep venous thrombosis prophylaxis, the patient is ambulating and has been started on sequential compression devices. Refrain from using any pharmacologic DVT prophylaxis at this time secondary to incidental finding of cerebral aneurysm. 8. For gastrointestinal prophylaxis, on Pepcid. We will continue to monitor patient closely. Further recommendations, management and treatment as per clinical course. Problems: Subjective 24 Hr Interval Summary Free Text/Dictation Patient denies any chest pain or shortness of breath Tolerating oral intake Continues to have mild dizziness Exam/Review of Systems Vital Signs Vitals Vital Signs Date Time Temp Pulse Resp B/P Pulse Ox O2 Delivery O2 Flow Rate FiO2 01/03/17 07:16 97.5 60 16 136/64 96 Room Air Intake and Output 01/02/17 01/02/17 01/03/17 15:00 23:00 07:00 Intake Total 480 ml 240 ml 300 ml Balance 480 ml 240 ml 300 ml Exam General: The patient is well-developed, Not in acute distress. HEENT: Atraumatic, normocephalic. The pupils are equal and round . Neck: Supple with full range of motion. Chest: Normal expansion of the thorax during inspiration Lungs: Clear to auscultation bilaterally Heart: Normal S1-S2, Regular rhythm and rate. Abdomen: Soft , nontender, nondistended , bowel sounds are present. Extremities: Right upper and lower extremity weakness 3/5, no edema no cyanosis Neurologic: Normal mental status,The patient is awake, alert and oriented . Results Results 24 hrs Laboratory Tests Test 01/02/17 16:59 01/02/17 21:06 01/03/17 06:50 01/03/17 11:57 Bedside Glucose 117 140 140 169 Medications Medications Current Medications Acetaminophen (Tylenol Tab) 650 mg Q6H PRN PO PAIN LEVEL 1-3 OR FEVER; Start at 19:00 Acetaminophen/ Hydrocodone Bitart ([place] (5/325)) 1 tab Q6H PRN PO PAIN LEVEL 4 -6 Last administered on 12/31/16 12:22; Admin Dose 1 TAB; Start 12/25/16 at 19: 00 Magnesium Hydroxide (Milk Of Mag) 30 ml DAILY PRN PO CONSTIPATION; Start at 19:00 Bisacodyl (Dulcolax) 5 mg DAILY PRN PO CONSTIPATION; Start 12/25/16 at 19:00 Atorvastatin Calcium (Lipitor) 40 mg HS PO Last administered on 01/01/17 20:41 ; Admin Dose 40 MG; Start 12/25/16 at 21:00 Glucose (Glutose) 15 gm Q15M PRN PO DECREASED GLUCOSE; Start 12/25/16 at 19:00 Glucose (Glutose) 22.5 gm Q15M PRN PO DECREASED GLUCOSE; Start 12/25/16 at 19:00 Dextrose (D50w Syringe) 25 ml Q15M PRN IV DECREASED GLUCOSE; Start 12/25/16 at 19:00 Dextrose (D50w Syringe) 50 ml Q15M PRN IV DECREASED GLUCOSE; Start 12/25/16 at 19:00 Glucagon (Glucagen) 1 mg Q15M PRN IM DECREASED GLUCOSE; Start 12/25/16 at 19:00 Glucose (Glutose) 15 gm Q15M PRN BUCCAL DECREASED GLUCOSE; Start 12/25/16 at 19: 00 Nifedipine (Procardia Xl) 60 mg BID PO Last administered on 01/03/17 08:09; Admin Dose 60 MG; Start 12/25/16 at 21:00 Diagnostic Test (Pha) (Accucheck) 1 ea 02 XX Last administered on 12/26/16 02: 00; Admin Dose 1 EA; Start 12/26/16 at 02:00 Cholecalciferol (Vitamin D) 1,000 unit DAILY PO Last administered on 01/03/17 08:09; Admin Dose 1,000 UNIT; Start 12/26/16 at 09:00 Famotidine (Pepcid) 20 mg BID PO Last administered on 01/02/17 09:12; Admin Dose 20 MG; Start 12/25/16 at 21:00 Lorazepam (Ativan) 0.5 mg Q8H PRN PO ANXIETY; Start 12/25/16 at 19:00 Meclizine HCl (Antivert) 12.5 mg TID PRN PO Vertigo Last administered on 21:05; Admin Dose 12.5 MG; Start 12/25/16 at 19:00 Miscellaneous Information 1 ea NOTE XX ; Start 12/25/16 at 19:00 Docusate Sodium (Colace) 100 mg BID PO Last administered on 12/29/16 08:07; Admin Dose 100 MG; Start 12/26/16 at 09:00 Senna (Senokot) 1 tab HS PO Last administered on 12/26/16 22:07; Admin Dose 1 TAB; Start 12/26/16 at 21:00 Lactulose (Enulose) 20 gm DAILY PRN PO CONSTIPATION; Start 12/26/16 at 04:30 Aspirin (Aspirin) 81 mg DAILY PO Last administered on 01/03/17 08:09; Admin Dose 81 MG; Start 12/26/16 at 12:00 Ondansetron HCl (Zofran Inj) 4 mg Q6H PRN IV NAUSEA AND/OR VOMITING Last administered on 12/27/16 01:00; Admin Dose 4 MG; Start 12/27/16 at 00:30 Insulin Glargine (Lantus) 12 unit HS SC Last administered on 01/01/17 20:43; Admin Dose 12 UNIT; Start 12/27/16 at 21:00 ALMA HURST MD Jan 03, 2017 14:28
--- NOTE | 2017-01-03 14:30 | PN ---
Date/Time of Note Date/Time of Note DATE: 01/02/17 TIME: 14:29 Assessment/Plan VTE Prophylaxis VTE Prophylaxis Intervention: SCD's Lines/Catheters [facility] Saline [facility] Urinary Cath still in place: No Assessment/Plan Chief Complaint/Hosp Course ASSESSMENT AND PLAN: 1. Acute left pontine infarct. Continue aspirin, statin. Continue to monitor and treat blood pressure with nifedipine. Continue physical therapy and occupational therapy. 2. Incidental finding of cerebral aneurysm, stable. The patient was seen and evaluated by neurosurgery during the course of the hospitalization. Will plan to follow up with neurosurgery as outpatient. 3. Essential hypertension, well controlled on nifedipine. 4. Diabetes mellitus type 2. Continue Lantus, insulin sliding scale, low- carbohydrate diet. 5. Dyslipidemia. Continue statin. 6. Vitamin D deficiency. Continue vitamin D supplementation. 7. For deep venous thrombosis prophylaxis, the patient is ambulating and has been started on sequential compression devices. Refrain from using any pharmacologic DVT prophylaxis at this time secondary to incidental finding of cerebral aneurysm. 8. For gastrointestinal prophylaxis, on Pepcid. We will continue to monitor patient closely. Further recommendations, management and treatment as per clinical course. Problems: Subjective 24 Hr Interval Summary Free Text/Dictation Denies any chest pain or shortness of breath Tolerating oral intake Ambulating with max assist Exam/Review of Systems Vital Signs Vitals Vital Signs Date Time Temp Pulse Resp B/P Pulse Ox O2 Delivery O2 Flow Rate FiO2 01/03/17 07:16 97.5 60 16 136/64 96 Room Air Intake and Output 01/02/17 01/02/17 01/03/17 15:00 23:00 07:00 Intake Total 480 ml 240 ml 300 ml Balance 480 ml 240 ml 300 ml Exam General: The patient is well-developed, Not in acute distress. HEENT: Atraumatic, normocephalic. The pupils are equal and round . Neck: Supple with full range of motion. Chest: Normal expansion of the thorax during inspiration Lungs: Clear to auscultation bilaterally Heart: Normal S1-S2, Regular rhythm and rate. Abdomen: Soft , nontender, nondistended , bowel sounds are present. Extremities: Right upper and lower extremity weakness 3/5, no edema no cyanosis Neurologic: Normal mental status,The patient is awake, alert and oriented . Results Results 24 hrs Laboratory Tests Test 01/02/17 16:59 2/16/17 21:06 01/03/17 06:50 01/03/17 11:57 Bedside Glucose 117 140 140 169 Medications Medications Current Medications Acetaminophen (Tylenol Tab) 650 mg Q6H PRN PO PAIN LEVEL 1-3 OR FEVER; Start at 19:00 Acetaminophen/ Hydrocodone Bitart ([place] (5/325)) 1 tab Q6H PRN PO PAIN LEVEL 4 -6 Last administered on 12/31/16 12:22; Admin Dose 1 TAB; Start 12/25/16 at 19: 00 Magnesium Hydroxide (Milk Of Mag) 30 ml DAILY PRN PO CONSTIPATION; Start at 19:00 Bisacodyl (Dulcolax) 5 mg DAILY PRN PO CONSTIPATION; Start 12/25/16 at 19:00 Atorvastatin Calcium (Lipitor) 40 mg HS PO Last administered on 01/01/17 20:41 ; Admin Dose 40 MG; Start 12/25/16 at 21:00 Glucose (Glutose) 15 gm Q15M PRN PO DECREASED GLUCOSE; Start 12/25/16 at 19:00 Glucose (Glutose) 22.5 gm Q15M PRN PO DECREASED GLUCOSE; Start 12/25/16 at 19:00 Dextrose (D50w Syringe) 25 ml Q15M PRN IV DECREASED GLUCOSE; Start 12/25/16 at 19:00 Dextrose (D50w Syringe) 50 ml Q15M PRN IV DECREASED GLUCOSE; Start 12/25/16 at 19:00 Glucagon (Glucagen) 1 mg Q15M PRN IM DECREASED GLUCOSE; Start 12/25/16 at 19:00 Glucose (Glutose) 15 gm Q15M PRN BUCCAL DECREASED GLUCOSE; Start 12/25/16 at 19: 00 Nifedipine (Procardia Xl) 60 mg BID PO Last administered on 01/03/17 08:09; Admin Dose 60 MG; Start 12/25/16 at 21:00 Diagnostic Test (Pha) (Accucheck) 1 ea 02 XX Last administered on 12/26/16 02: 00; Admin Dose 1 EA; Start 12/26/16 at 02:00 Cholecalciferol (Vitamin D) 1,000 unit DAILY PO Last administered on 01/03/17 08:09; Admin Dose 1,000 UNIT; Start 12/26/16 at 09:00 Famotidine (Pepcid) 20 mg BID PO Last administered on 01/02/17 09:12; Admin Dose 20 MG; Start 12/25/16 at 21:00 Lorazepam (Ativan) 0.5 mg Q8H PRN PO ANXIETY; Start 12/25/16 at 19:00 Meclizine HCl (Antivert) 12.5 mg TID PRN PO Vertigo Last administered on 21:05; Admin Dose 12.5 MG; Start 12/25/16 at 19:00 Miscellaneous Information 1 ea NOTE XX ; Start 12/25/16 at 19:00 Docusate Sodium (Colace) 100 mg BID PO Last administered on 12/29/16 08:07; Admin Dose 100 MG; Start 12/26/16 at 09:00 Senna (Senokot) 1 tab HS PO Last administered on 12/26/16 22:07; Admin Dose 1 TAB; Start 12/26/16 at 21:00 Lactulose (Enulose) 20 gm DAILY PRN PO CONSTIPATION; Start 12/26/16 at 04:30 Aspirin (Aspirin) 81 mg DAILY PO Last administered on 01/03/17 08:09; Admin Dose 81 MG; Start 12/26/16 at 12:00 Ondansetron HCl (Zofran Inj) 4 mg Q6H PRN IV NAUSEA AND/OR VOMITING Last administered on 12/27/16 01:00; Admin Dose 4 MG; Start 12/27/16 at 00:30 Insulin Glargine (Lantus) 12 unit HS SC Last administered on 01/01/17 20:43; Admin Dose 12 UNIT; Start 12/27/16 at 21:00 ALMA HURST MD Jan 03, 2017 14:30
[2017-01-03 20:00] VITALS: BP 130/58; RESP 18
[2017-01-03] MEDS: ATORVASTATIN 40 MG TAB PO SCH (20:46)
[2017-01-03] MEDS: SENNA TAB PO SCH (20:47)
[2017-01-03] MEDS: INSULIN GLARGINE [LANtus] 3 ML PEN SC SCH (20:50)
[2017-01-04] MEDS: ACCUCHECK XX SCH (02:00)
[2017-01-04] MEDS: INSULIN ASPART [NOVOLOG] 3 ML PEN SC SCH ×4 (07:35→21:00)
[2017-01-04 08:00] VITALS: BP 118/69; RESP 20
[2017-01-04] MEDS: ASPIRIN 81 MG TAB PO SCH (08:54)
[2017-01-04] MEDS: CHOLECALCIFEROL 1,000 UNIT TAB PO SCH (08:54)
[2017-01-04] MEDS: NIFEdipine (XL) 60 MG TAB PO SCH ×2 (08:55→21:28)
[2017-01-04] MEDS: FAMOTIDINE 20 MG TAB PO SCH ×2 (08:55→21:00)
[2017-01-04] MEDS: DOCUSATE SODIUM 100 MG CAP PO SCH ×2 (08:55→21:00)
[2017-01-04] MEDS: metFORMIN 500 MG TAB PO SCH ×2 (08:55→17:40)
[2017-01-04 08:57] VITALS: BP 109/58; PULSE 76; RESP 16
--- NOTE | 2017-01-04 15:01 | PN ---
Date/Time of Note Date/Time of Note DATE: 01/04/17 TIME: 14:59 Assessment/Plan VTE Prophylaxis VTE Prophylaxis Intervention: ambulation Lines/Catheters IV Catheter Type (from Nrsg): Saline Lock Urinary Cath still in place: No Assessment/Plan Assessment/Plan 1. 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 Continue PT/OT/ST, continues to progress. SBA/CGA for bed mobility and transfers. Continue secondary stroke prevention per neurology. 2. Incidental finding of ANA intracranial aneurysm. To follow up with NSGY as outpatient 3. Hypertension. BP controlled. Continue medical management per internal medicine. 4. Diabetes mellitus. Blood sugars controlled, internal medicine managing. 5. Cervical spinal stenosis. 6. Dyslipidemia. Continue statin. Subjective 24 Hr Interval Summary Free Text/Dictation Rehab progress note Subjective: No acute complaints. ROS: Denies headache, no new visual changes, no abdominal pain, no chest pain, no shortness of breath. Exam/Review of Systems Vital Signs Vitals Vital Signs Date Time Temp Pulse Resp B/P Pulse Ox O2 Delivery O2 Flow Rate FiO2 01/04/17 08:57 76 16 109/58 97 Room Air 01/04/17 08:00 97.6 Intake and Output 01/03/17 01/03/17 01/04/17 14:59 22:59 06:59 Intake Total 820 ml Balance 820 ml Exam General: Awake, alert, no acute distress CV: Regular rate, s1s2 Lungs without wheezing, no crackles Abdomen soft, nontender Extremities without cyanosis, no new swelling Neuro: No new focal deficits. Right sided strength improving. Results Results 24 hrs Laboratory Tests Test 01/03/17 17:27 01/03/17 20:39 01/04/17 07:36 01/04/17 11:49 Bedside Glucose 139 174 121 134 Medications Medications Current Medications Acetaminophen (Tylenol Tab) 650 mg Q6H PRN PO PAIN LEVEL 1-3 OR FEVER; Start at 19:00 Acetaminophen/ Hydrocodone Bitart ([place] (5/325)) 1 tab Q6H PRN PO PAIN LEVEL 4 -6 Last administered on 12/31/16t 12:22; Admin Dose 1 TAB; Start 12/25/16 at 19: 00 Magnesium Hydroxide (Milk Of Mag) 30 ml DAILY PRN PO CONSTIPATION; Start at 19:00 Bisacodyl (Dulcolax) 5 mg DAILY PRN PO CONSTIPATION; Start 12/25/16 at 19:00 Atorvastatin Calcium (Lipitor) 40 mg HS PO Last administered on 01/01/17 20:41 ; Admin Dose 40 MG; Start 12/25/16 at 21:00 Glucose (Glutose) 15 gm Q15M PRN PO DECREASED GLUCOSE; Start 12/25/16 at 19:00 Glucose (Glutose) 22.5 gm Q15M PRN PO DECREASED GLUCOSE; Start 12/25/16 at 19:00 Dextrose (D50w Syringe) 25 ml Q15M PRN IV DECREASED GLUCOSE; Start 12/25/16 at 19:00 Dextrose (D50w Syringe) 50 ml Q15M PRN IV DECREASED GLUCOSE; Start 12/25/16 at 19:00 Glucagon (Glucagen) 1 mg Q15M PRN IM DECREASED GLUCOSE; Start 12/25/16 at 19:00 Glucose (Glutose) 15 gm Q15M PRN BUCCAL DECREASED GLUCOSE; Start 12/25/16 at 19: 00 Nifedipine (Procardia Xl) 60 mg BID PO Last administered on 01/03/17 20:46; Admin Dose 60 MG; Start 12/25/16 at 21:00 Diagnostic Test (Pha) (Accucheck) 1 ea 02 XX Last administered on 12/26/16 02: 00; Admin Dose 1 EA; Start 12/26/16 at 02:00 Cholecalciferol (Vitamin D) 1,000 unit DAILY PO Last administered on 01/04/17 08:54; Admin Dose 1,000 UNIT; Start 12/26/16 at 09:00 Famotidine (Pepcid) 20 mg BID PO Last administered on 01/02/17 09:12; Admin Dose 20 MG; Start 12/25/16 at 21:00 Lorazepam (Ativan) 0.5 mg Q8H PRN PO ANXIETY; Start 12/25/16 at 19:00 Meclizine HCl (Antivert) 12.5 mg TID PRN PO Vertigo Last administered on 21:05; Admin Dose 12.5 MG; Start 12/25/16 at 19:00 Miscellaneous Information 1 ea NOTE XX ; Start 12/25/16 at 19:00 Docusate Sodium (Colace) 100 mg BID PO Last administered on 12/29/16 08:07; Admin Dose 100 MG; Start 12/26/16 at 09:00 Senna (Senokot) 1 tab HS PO Last administered on 12/26/16 22:07; Admin Dose 1 TAB; Start 12/26/16 at 21:00 Lactulose (Enulose) 20 gm DAILY PRN PO CONSTIPATION; Start 12/26/16 at 04:30 Aspirin (Aspirin) 81 mg DAILY PO Last administered on 01/04/17 08:54; Admin Dose 81 MG; Start 12/26/16 at 12:00 Ondansetron HCl (Zofran Inj) 4 mg Q6H PRN IV NAUSEA AND/OR VOMITING Last administered on 12/27/16 01:00; Admin Dose 4 MG; Start 12/27/16 at 00:30 Insulin Glargine (Lantus) 12 unit HS SC Last administered on 01/01/17 20:43; Admin Dose 12 UNIT; Start 12/27/16 at 21:00 RIVKA NIÑO Jan 04, 2017 15:01
[2017-01-04] MEDS: SENNA TAB PO SCH (21:00)
[2017-01-04] MEDS: ATORVASTATIN 40 MG TAB PO SCH (21:00)
[2017-01-04] MEDS: INSULIN GLARGINE [LANtus] 3 ML PEN SC SCH (21:00)
[2017-01-04 21:03] VITALS: BP 136/62; PULSE 80; RESP 18
[2017-01-05] MEDS: ACCUCHECK XX SCH (02:00)
[2017-01-05 07:30] VITALS: BP 109/59; RESP 18
[2017-01-05] MEDS: INSULIN ASPART [NOVOLOG] 3 ML PEN SC SCH ×4 (07:35→21:00)
[2017-01-05] MEDS: metFORMIN 500 MG TAB PO SCH ×2 (07:52→17:31)
[2017-01-05] MEDS: FAMOTIDINE 20 MG TAB PO SCH ×2 (08:16→20:31)
[2017-01-05] MEDS: CHOLECALCIFEROL 1,000 UNIT TAB PO SCH (08:16)
[2017-01-05] MEDS: ASPIRIN 81 MG TAB PO SCH (08:16)
[2017-01-05] MEDS: DOCUSATE SODIUM 100 MG CAP PO SCH ×2 (08:17→21:00)
[2017-01-05] MEDS: NIFEdipine (XL) 60 MG TAB PO SCH ×2 (08:18→20:32)
--- NOTE | 2017-01-05 11:01 | PN ---
Date/Time of Note Date/Time of Note DATE: 01/05/17 TIME: 11:00 Assessment/Plan VTE Prophylaxis VTE Prophylaxis Intervention: ambulation Lines/Catheters IV Catheter Type (from Nrsg): Saline Lock Urinary Cath still in place: No Assessment/Plan Assessment/Plan 1. 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 Continue PT/OT/ST. Min assist for feeding. Mod assist for toileting. Continue secondary stroke prevention per neurology. 2. Incidental finding of ANA intracranial aneurysm. To follow up with NSGY as outpatient 3. Hypertension. BP controlled, continue to monitor. Continue current management. 4. Diabetes mellitus. Blood sugars controlled, continue metformin and insulin regimen. 5. Cervical spinal stenosis. Continue pain control as needed. 6. Dyslipidemia. Continue statin. Subjective 24 Hr Interval Summary Free Text/Dictation Rehab progress note Subjective: No acute complaints. ROS: Denies chest pain, no shortness of breath, no abdominal pain, no new visual changes, no new weakness. Denies constipation. Exam/Review of Systems Vital Signs Vitals Vital Signs Date Time Temp Pulse Resp B/P Pulse Ox O2 Delivery O2 Flow Rate FiO2 01/04/17 21:03 80 18 136/62 Room Air 01/04/17 08:57 97 01/04/17 08:00 97.6 Intake and Output 01/04/17 01/04/17 01/05/17 15:00 23:00 07:00 Intake Total 550 ml 1600 ml Output Total 780 ml Balance 550 ml 820 ml Exam General: Awake, alert, no acute distress CV: Regular rate, s1s2 Lungs: Clear to auscultation, no wheezing Abdomen soft, nontender Extremities without cyanosis, no new swelling Neuro: No new focal changes. Results Results 24 hrs Laboratory Tests Test 01/04/17 11:49 01/04/17 17:04 01/04/17 20:56 01/05/17 07:31 Bedside Glucose 134 109 212 110 Medications Medications Current Medications Acetaminophen (Tylenol Tab) 650 mg Q6H PRN PO PAIN LEVEL 1-3 OR FEVER; Start at 19:00 Acetaminophen/ Hydrocodone Bitart ([place] (5/325)) 1 tab Q6H PRN PO PAIN LEVEL 4 -6 Last administered on 12/31/16t 12:22; Admin Dose 1 TAB; Start 12/25/16 at 19: 00 Magnesium Hydroxide (Milk Of Mag) 30 ml DAILY PRN PO CONSTIPATION; Start at 19:00 Bisacodyl (Dulcolax) 5 mg DAILY PRN PO CONSTIPATION; Start 12/25/16 at 19:00 Atorvastatin Calcium (Lipitor) 40 mg HS PO Last administered on 01/01/17 20:41 ; Admin Dose 40 MG; Start 12/25/16 at 21:00 Glucose (Glutose) 15 gm Q15M PRN PO DECREASED GLUCOSE; Start 12/25/16 at 19:00 Glucose (Glutose) 22.5 gm Q15M PRN PO DECREASED GLUCOSE; Start 12/25/16 at 19:00 Dextrose (D50w Syringe) 25 ml Q15M PRN IV DECREASED GLUCOSE; Start 12/25/16 at 19:00 Dextrose (D50w Syringe) 50 ml Q15M PRN IV DECREASED GLUCOSE; Start 12/25/16 at 19:00 Glucagon (Glucagen) 1 mg Q15M PRN IM DECREASED GLUCOSE; Start 12/25/16 at 19:00 Glucose (Glutose) 15 gm Q15M PRN BUCCAL DECREASED GLUCOSE; Start 12/25/16 at 19: 00 Nifedipine (Procardia Xl) 60 mg BID PO Last administered on 01/04/17 21:28; Admin Dose 60 MG; Start 12/25/16 at 21:00 Diagnostic Test (Pha) (Accucheck) 1 ea 02 XX Last administered on 12/26/16 02: 00; Admin Dose 1 EA; Start 12/26/16 at 02:00 Cholecalciferol (Vitamin D) 1,000 unit DAILY PO Last administered on 01/05/17 08:16; Admin Dose 1,000 UNIT; Start 12/26/16 at 09:00 Famotidine (Pepcid) 20 mg BID PO Last administered on 01/05/17 08:16; Admin Dose 20 MG; Start 12/25/16 at 21:00 Lorazepam (Ativan) 0.5 mg Q8H PRN PO ANXIETY; Start 12/25/16 at 19:00 Meclizine HCl (Antivert) 12.5 mg TID PRN PO Vertigo Last administered on 21:05; Admin Dose 12.5 MG; Start 12/25/16 at 19:00 Miscellaneous Information 1 ea NOTE XX ; Start 12/25/16 at 19:00 Docusate Sodium (Colace) 100 mg BID PO Last administered on 12/29/16 08:07; Admin Dose 100 MG; Start 12/26/16 at 09:00 Senna (Senokot) 1 tab HS PO Last administered on 12/26/16 22:07; Admin Dose 1 TAB; Start 12/26/16 at 21:00 Lactulose (Enulose) 20 gm DAILY PRN PO CONSTIPATION; Start 12/26/16 at 04:30 Aspirin (Aspirin) 81 mg DAILY PO Last administered on 01/05/17 08:16; Admin Dose 81 MG; Start 12/26/16 at 12:00 Ondansetron HCl (Zofran Inj) 4 mg Q6H PRN IV NAUSEA AND/OR VOMITING Last administered on 12/27/16 01:00; Admin Dose 4 MG; Start 12/27/16 at 00:30 Insulin Glargine (Lantus) 12 unit HS SC Last administered on 01/01/17 20:43; Admin Dose 12 UNIT; Start 12/27/16 at 21:00 RIVKA NIÑO Jan 05, 2017 11:01
[2017-01-05 19:16] VITALS: BP 128/65; RESP 20
[2017-01-05] MEDS: ATORVASTATIN 40 MG TAB PO SCH (20:31)
[2017-01-05] MEDS: INSULIN GLARGINE [LANtus] 3 ML PEN SC SCH (21:00)
[2017-01-05] MEDS: SENNA TAB PO SCH (21:00)
[2017-01-06] MEDS: ACCUCHECK XX SCH (02:00)
[2017-01-06 07:30] VITALS: BP 123/59; RESP 18
[2017-01-06] MEDS: INSULIN ASPART [NOVOLOG] 3 ML PEN SC SCH ×4 (07:35→21:00)
[2017-01-06] MEDS: CHOLECALCIFEROL 1,000 UNIT TAB PO SCH (08:10)
[2017-01-06] MEDS: metFORMIN 500 MG TAB PO SCH ×2 (08:12→17:28)
[2017-01-06] MEDS: ASPIRIN 81 MG TAB PO SCH (08:13)
[2017-01-06] MEDS: NIFEdipine (XL) 60 MG TAB PO SCH ×2 (08:16→20:32)
[2017-01-06] MEDS: DOCUSATE SODIUM 100 MG CAP PO SCH ×2 (08:16→21:00)
[2017-01-06] MEDS: FAMOTIDINE 20 MG TAB PO SCH ×2 (08:16→21:00)
--- NOTE | 2017-01-06 11:38 | CONS ---
Date/Time of Note Date/Time of Note DATE: 01/06/17 TIME: 11:37 Consult Date/Type/Reason Admit Date/Time Dec 25, 2016 at 17:11 Subjective Patient in good spirits Objective Vital Signs Date Time Temp Pulse Resp B/P Pulse Ox O2 Delivery O2 Flow Rate FiO2 01/05/17 19:16 98.4 68 20 128/65 99 01/04/17 21:03 Room Air Intake and Output 01/05/17 01/05/17 01/06/17 15:00 23:00 07:00 Intake Total 1220 ml Balance 1220 ml INTERDISCIPLINARY TEAM CONFERENCE BOWEL- Cont BLADDER-Cont SKIN- intact OT- DRESSING-sba BATHING-sba TOILETING-sba PT- BED MOBILITY-sba TRANSFERS-cga AMBULATION-cga 150 feet W.C. MOBILITY-sba SPEECH- COGNITION-MT A/P- Interdisciplinary team conference held today. Please see interdisciplinary sheet. Working toward d.c. on 01/08 with post discharge follow up of physical therapy, occupational therapy. Results/Medications Results 24 hrs Laboratory Tests Test 01/05/17 11:56 01/05/17 16:40 01/05/17 21:49 01/06/17 07:32 Bedside Glucose 122 140 110 134 Medications Current Medications Acetaminophen (Tylenol Tab) 650 mg Q6H PRN PO PAIN LEVEL 1-3 OR FEVER; Start at 19:00 Acetaminophen/ Hydrocodone Bitart ([place] (5/325)) 1 tab Q6H PRN PO PAIN LEVEL 4 -6 Last administered on 12/31/16 12:22; Admin Dose 1 TAB; Start 12/25/16 at 19: 00 Magnesium Hydroxide (Milk Of Mag) 30 ml DAILY PRN PO CONSTIPATION; Start at 19:00 Bisacodyl (Dulcolax) 5 mg DAILY PRN PO CONSTIPATION; Start 12/25/16 at 19:00 Atorvastatin Calcium (Lipitor) 40 mg HS PO Last administered on 01/05/17 20:31 ; Admin Dose 40 MG; Start 12/25/16 at 21:00 Glucose (Glutose) 15 gm Q15M PRN PO DECREASED GLUCOSE; Start 12/25/16 at 19:00 Glucose (Glutose) 22.5 gm Q15M PRN PO DECREASED GLUCOSE; Start 12/25/16 at 19:00 Dextrose (D50w Syringe) 25 ml Q15M PRN IV DECREASED GLUCOSE; Start 12/25/16 at 19:00 Dextrose (D50w Syringe) 50 ml Q15M PRN IV DECREASED GLUCOSE; Start 12/25/16 at 19:00 Glucagon (Glucagen) 1 mg Q15M PRN IM DECREASED GLUCOSE; Start 12/25/16 at 19:00 Glucose (Glutose) 15 gm Q15M PRN BUCCAL DECREASED GLUCOSE; Start 12/25/16 at 19: 00 Nifedipine (Procardia Xl) 60 mg BID PO Last administered on 01/06/17 08:16; Admin Dose 60 MG; Start 12/25/16 at 21:00 Diagnostic Test (Pha) (Accucheck) 1 ea 02 XX Last administered on 12/26/16 02: 00; Admin Dose 1 EA; Start 12/26/16 at 02:00 Cholecalciferol (Vitamin D) 1,000 unit DAILY PO Last administered on 01/06/17 08:10; Admin Dose 1,000 UNIT; Start 12/26/16 at 09:00 Famotidine (Pepcid) 20 mg BID PO Last administered on 01/06/17 08:16; Admin Dose 20 MG; Start 12/25/16 at 21:00 Lorazepam (Ativan) 0.5 mg Q8H PRN PO ANXIETY; Start 12/25/16 at 19:00 Meclizine HCl (Antivert) 12.5 mg TID PRN PO Vertigo Last administered on 21:05; Admin Dose 12.5 MG; Start 12/25/16 at 19:00 Miscellaneous Information 1 ea NOTE XX ; Start 12/25/16 at 19:00 Docusate Sodium (Colace) 100 mg BID PO Last administered on 12/29/16 08:07; Admin Dose 100 MG; Start 12/26/16 at 09:00 Senna (Senokot) 1 tab HS PO Last administered on 12/26/16 22:07; Admin Dose 1 TAB; Start 12/26/16 at 21:00 Lactulose (Enulose) 20 gm DAILY PRN PO CONSTIPATION; Start 12/26/16 at 04:30 Aspirin (Aspirin) 81 mg DAILY PO Last administered on 01/06/17 08:13; Admin Dose 81 MG; Start 12/26/16 at 12:00 Ondansetron HCl (Zofran Inj) 4 mg Q6H PRN IV NAUSEA AND/OR VOMITING Last administered on 12/27/16 01:00; Admin Dose 4 MG; Start 12/27/16 at 00:30 Insulin Glargine (Lantus) 12 unit HS SC Last administered on 01/01/17 20:43; Admin Dose 12 UNIT; Start 12/27/16 at 21:00 AURE BILLY MD Jan 06, 2017 11:38
--- NOTE | 2017-01-06 16:39 | PN ---
Date/Time of Note Date/Time of Note DATE: 01/06/17 TIME: 16:38 Assessment/Plan VTE Prophylaxis VTE Prophylaxis Intervention: SCD's Lines/Catheters [facility] Saline Lock Urinary Cath still in place: No Assessment/Plan Chief Complaint/Hosp Course ASSESSMENT AND PLAN: 1. Acute left pontine infarct. Continue aspirin, statin. Continue to monitor and treat blood pressure with nifedipine. Continue physical therapy and occupational therapy. 2. Incidental finding of cerebral aneurysm, stable. The patient was seen and evaluated by neurosurgery during the course of the hospitalization. Will plan to follow up with neurosurgery as outpatient. 3. Essential hypertension, well controlled on nifedipine. 4. Diabetes mellitus type 2. On insulin sliding scale and metformin, low- carbohydrate diet. 5. Dyslipidemia. Continue statin. 6. Vitamin D deficiency. Continue vitamin D supplementation. 7. For deep venous thrombosis prophylaxis, the patient is ambulating and has been started on sequential compression devices. Refrain from using any pharmacologic DVT prophylaxis at this time secondary to incidental finding of cerebral aneurysm. 8. For gastrointestinal prophylaxis, on Pepcid. We will continue to monitor patient closely. Further recommendations, management and treatment as per clinical course. Problems: Subjective 24 Hr Interval Summary Free Text/Dictation Patient denies of any headache or dizziness Denies of any chest pain shortness of breath Ambulate with moderate assist Has been refusing her Lantus Exam/Review of Systems Vital Signs Vitals Vital Signs Date Time Temp Pulse Resp B/P Pulse Ox O2 Delivery O2 Flow Rate FiO2 01/06/17 07:30 98.5 78 18 123/59 98 01/04/17 21:03 Room Air Intake and Output 01/05/17 01/05/17 01/06/17 15:00 23:00 07:00 Intake Total 1220 ml Balance 1220 ml Exam General: The patient is well-developed, Not in acute distress. HEENT: Atraumatic, normocephalic. The pupils are equal and round . Neck: Supple with full range of motion. Chest: Normal expansion of the thorax during inspiration Lungs: Clear to auscultation bilaterally Heart: Normal S1-S2, Regular rhythm and rate. Abdomen: Soft , nontender, nondistended , bowel sounds are present. Extremities: Right upper and lower extremity weakness 3/5 , no edema no cyanosis Neurologic: Normal mental status,The patient is awake, alert and oriented . Results Results 24 hrs Laboratory Tests Test 01/05/17 16:40 01/05/17 21:49 01/06/17 07:32 01/06/17 12:15 Bedside Glucose 140 110 134 114 Medications Medications Current Medications Acetaminophen (Tylenol Tab) 650 mg Q6H PRN PO PAIN LEVEL 1-3 OR FEVER; Start at 19:00 Acetaminophen/ Hydrocodone Bitart ([place] (5/325)) 1 tab Q6H PRN PO PAIN LEVEL 4 -6 Last administered on 12/31/16 12:22; Admin Dose 1 TAB; Start 12/25/16 at 19: 00 Magnesium Hydroxide (Milk Of Mag) 30 ml DAILY PRN PO CONSTIPATION; Start at 19:00 Bisacodyl (Dulcolax) 5 mg DAILY PRN PO CONSTIPATION; Start 12/25/16 at 19:00 Atorvastatin Calcium (Lipitor) 40 mg HS PO Last administered on 01/05/17 20:31 ; Admin Dose 40 MG; Start 12/25/16 at 21:00 Glucose (Glutose) 15 gm Q15M PRN PO DECREASED GLUCOSE; Start 12/25/16 at 19:00 Glucose (Glutose) 22.5 gm Q15M PRN PO DECREASED GLUCOSE; Start 12/25/16 at 19:00 Dextrose (D50w Syringe) 25 ml Q15M PRN IV DECREASED GLUCOSE; Start 12/25/16 at 19:00 Dextrose (D50w Syringe) 50 ml Q15M PRN IV DECREASED GLUCOSE; Start 12/25/16 at 19:00 Glucagon (Glucagen) 1 mg Q15M PRN IM DECREASED GLUCOSE; Start 12/25/16 at 19:00 Glucose (Glutose) 15 gm Q15M PRN BUCCAL DECREASED GLUCOSE; Start 12/25/16 at 19: 00 Nifedipine (Procardia Xl) 60 mg BID PO Last administered on 01/06/17 08:16; Admin Dose 60 MG; Start 12/25/16 at 21:00 Diagnostic Test (Pha) (Accucheck) 1 ea 02 XX Last administered on 12/26/16 02: 00; Admin Dose 1 EA; Start 12/26/16 at 02:00 Cholecalciferol (Vitamin D) 1,000 unit DAILY PO Last administered on 01/06/17 08:10; Admin Dose 1,000 UNIT; Start 12/26/16 at 09:00 Famotidine (Pepcid) 20 mg BID PO Last administered on 01/06/17 08:16; Admin Dose 20 MG; Start 12/25/16 at 21:00 Lorazepam (Ativan) 0.5 mg Q8H PRN PO ANXIETY; Start 12/25/16 at 19:00 Meclizine HCl (Antivert) 12.5 mg TID PRN PO Vertigo Last administered on 21:05; Admin Dose 12.5 MG; Start 12/25/16 at 19:00 Miscellaneous Information 1 ea NOTE XX ; Start 12/25/16 at 19:00 Docusate Sodium (Colace) 100 mg BID PO Last administered on 12/29/16 08:07; Admin Dose 100 MG; Start 12/26/16 at 09:00 Senna (Senokot) 1 tab HS PO Last administered on 12/26/16 22:07; Admin Dose 1 TAB; Start 12/26/16 at 21:00 Lactulose (Enulose) 20 gm DAILY PRN PO CONSTIPATION; Start 12/26/16 at 04:30 Aspirin (Aspirin) 81 mg DAILY PO Last administered on 01/06/17 08:13; Admin Dose 81 MG; Start 12/26/16 at 12:00 Ondansetron HCl (Zofran Inj) 4 mg Q6H PRN IV NAUSEA AND/OR VOMITING Last administered on 12/27/16 01:00; Admin Dose 4 MG; Start 12/27/16 at 00:30 ALMA HURST MD Jan 06, 2017 16:39
[2017-01-06 19:38] VITALS: BP 113/63; RESP 20
[2017-01-06] MEDS: SENNA TAB PO SCH (21:00)
[2017-01-06] MEDS: ATORVASTATIN 40 MG TAB PO SCH (21:00)
[2017-01-07] MEDS: ACCUCHECK XX SCH (02:00)
[2017-01-07] MEDS: INSULIN ASPART [NOVOLOG] 3 ML PEN SC SCH ×4 (07:35→21:00)
[2017-01-07 07:55] VITALS: BP 113/63; PULSE 79; RESP 18
[2017-01-07] MEDS: ASPIRIN 81 MG TAB PO SCH (08:01)
[2017-01-07] MEDS: CHOLECALCIFEROL 1,000 UNIT TAB PO SCH (08:02)
[2017-01-07] MEDS: FAMOTIDINE 20 MG TAB PO SCH ×2 (08:02→21:00)
[2017-01-07] MEDS: metFORMIN 500 MG TAB PO SCH ×2 (08:02→17:45)
[2017-01-07] MEDS: NIFEdipine (XL) 60 MG TAB PO SCH ×2 (09:00→21:00)
[2017-01-07] MEDS: DOCUSATE SODIUM 100 MG CAP PO SCH ×2 (09:00→21:00)
--- NOTE | 2017-01-07 11:16 | CONS ---
Date/Time of Note Date/Time of Note DATE: 01/07/17 TIME: 11:14 Consult Date/Type/Reason Admit Date/Time Dec 25, 2016 at 17:11 Subjective Patietn very pleased with her progress Objective pulm- cta improving antigravitiy strength of R UE cga ambulation 150 feet Vital Signs Date Time Temp Pulse Resp B/P Pulse Ox O2 Delivery O2 Flow Rate FiO2 01/07/17 07:55 97.9 79 18 113/63 97 Room Air Intake and Output 01/06/17 01/06/17 01/07/17 14:59 22:59 06:59 Intake Total 1490 ml 240 ml Balance 1490 ml 240 ml Results/Medications Results 24 hrs Laboratory Tests Test 01/06/17 12:15 01/06/17 16:55 01/06/17 20:30 01/07/17 07:24 Bedside Glucose 114 114 182 137 Medications Current Medications Acetaminophen (Tylenol Tab) 650 mg Q6H PRN PO PAIN LEVEL 1-3 OR FEVER; Start at 19:00 Acetaminophen/ Hydrocodone Bitart ([place] (5/325)) 1 tab Q6H PRN PO PAIN LEVEL 4 -6 Last administered on 12/31/16 12:22; Admin Dose 1 TAB; Start 12/25/16 at 19: 00 Magnesium Hydroxide (Milk Of Mag) 30 ml DAILY PRN PO CONSTIPATION; Start at 19:00 Bisacodyl (Dulcolax) 5 mg DAILY PRN PO CONSTIPATION; Start 12/25/16 at 19:00 Atorvastatin Calcium (Lipitor) 40 mg HS PO Last administered on 01/05/17 20:31 ; Admin Dose 40 MG; Start 12/25/16 at 21:00 Glucose (Glutose) 15 gm Q15M PRN PO DECREASED GLUCOSE; Start 12/25/16 at 19:00 Glucose (Glutose) 22.5 gm Q15M PRN PO DECREASED GLUCOSE; Start 12/25/16 at 19:00 Dextrose (D50w Syringe) 25 ml Q15M PRN IV DECREASED GLUCOSE; Start 12/25/16 at 19:00 Dextrose (D50w Syringe) 50 ml Q15M PRN IV DECREASED GLUCOSE; Start 12/25/16 at 19:00 Glucagon (Glucagen) 1 mg Q15M PRN IM DECREASED GLUCOSE; Start 12/25/16 at 19:00 Glucose (Glutose) 15 gm Q15M PRN BUCCAL DECREASED GLUCOSE; Start 12/25/16 at 19: 00 Nifedipine (Procardia Xl) 60 mg BID PO Last administered on 01/06/17 20:32; Admin Dose 60 MG; Start 12/25/16 at 21:00 Diagnostic Test (Pha) (Accucheck) 1 ea 02 XX Last administered on 12/26/16 02: 00; Admin Dose 1 EA; Start 12/26/16 at 02:00 Cholecalciferol (Vitamin D) 1,000 unit DAILY PO Last administered on 01/07/17 08:02; Admin Dose 1,000 UNIT; Start 12/26/16 at 09:00 Famotidine (Pepcid) 20 mg BID PO Last administered on 01/07/17 08:02; Admin Dose 20 MG; Start 12/25/16 at 21:00 Lorazepam (Ativan) 0.5 mg Q8H PRN PO ANXIETY; Start 12/25/16 at 19:00 Meclizine HCl (Antivert) 12.5 mg TID PRN PO Vertigo Last administered on 21:05; Admin Dose 12.5 MG; Start 12/25/16 at 19:00 Miscellaneous Information 1 ea NOTE XX ; Start 12/25/16 at 19:00 Docusate Sodium (Colace) 100 mg BID PO Last administered on 12/29/16 08:07; Admin Dose 100 MG; Start 12/26/16 at 09:00 Senna (Senokot) 1 tab HS PO Last administered on 12/26/16 22:07; Admin Dose 1 TAB; Start 12/26/16 at 21:00 Lactulose (Enulose) 20 gm DAILY PRN PO CONSTIPATION; Start 12/26/16 at 04:30 Aspirin (Aspirin) 81 mg DAILY PO Last administered on 01/07/17 08:01; Admin Dose 81 MG; Start 12/26/16 at 12:00 Ondansetron HCl (Zofran Inj) 4 mg Q6H PRN IV NAUSEA AND/OR VOMITING Last administered on 12/27/16 01:00; Admin Dose 4 MG; Start 12/27/16 at 00:30 Assessment/Plan Additional Assessment/Plan Rehab- Left pontine infarct cerebrovascular accident with right-sided weakness in addition to ANA intracranial aneurysm. Excellent progress with rehab program Anticipate dc tomorrow Dysphagia-doing well Hypertension-stable Diabetes mellitus- monitor BS Cervical spinal stenosis. AURE BILLY MD Jan 07, 2017 11:16
--- NOTE | 2017-01-07 14:31 | PN ---
Date/Time of Note Date/Time of Note DATE: 01/07/17 TIME: 14:30 Assessment/Plan VTE Prophylaxis VTE Prophylaxis Intervention: SCD's Lines/Catheters IV [facility]ter Type [facility]from [facility] Saline Lock Urinary Cath still in place: No Assessment/Plan Chief Complaint/Hosp Course ASSESSMENT AND PLAN: 1. Acute left pontine infarct. Continue aspirin, statin. Continue to monitor and treat blood pressure with nifedipine. Continue physical therapy and occupational therapy. 2. Incidental finding of cerebral aneurysm, stable. The patient was seen and evaluated by neurosurgery during the course of the hospitalization. Will plan to follow up with neurosurgery as outpatient. 3. Essential hypertension, well controlled on nifedipine. 4. Diabetes mellitus type 2. On insulin sliding scale and metformin, low- carbohydrate diet. 5. Dyslipidemia. Continue statin. 6. Vitamin D deficiency. Continue vitamin D supplementation. 7. For deep venous thrombosis prophylaxis, the patient is ambulating and has been started on sequential compression devices. Refrain from using any pharmacologic DVT prophylaxis at this time secondary to incidental finding of cerebral aneurysm. 8. For gastrointestinal prophylaxis, on Pepcid. We will continue to monitor patient closely. Further recommendations, management and treatment as per clinical course. Problems: Subjective 24 Hr Interval Summary Free Text/Dictation Patient denies of any chest pain or shortness of breath Moderate assist with ambulation with physical therapy and walker Exam/Review of Systems Vital Signs Vitals Vital Signs Date Time Temp Pulse Resp B/P Pulse Ox O2 Delivery O2 Flow Rate FiO2 01/07/17 07:55 97.9 79 18 113/63 97 Room Air Intake and Output 01/06/17 01/06/17 01/07/17 15:00 23:00 07:00 Intake Total 1490 ml 240 ml Balance 1490 ml 240 ml Exam General: The patient is well-developed, Not in acute distress. HEENT: Atraumatic, normocephalic. The pupils are equal and round . Neck: Supple with full range of motion. Chest: Normal expansion of the thorax during inspiration Lungs: Clear to auscultation bilaterally Heart: Normal S1-S2, Regular rhythm and rate. Abdomen: Soft , nontender, nondistended , bowel sounds are present. Extremities: Right upper and lower extremity weakness 3/5, no edema no cyanosis Neurologic: Normal mental status,The patient is awake, alert and oriented . Results Results 24 hrs Laboratory Tests Test 01/06/17 16:55 01/06/17 20:30 01/07/17 07:24 01/07/17 12:03 Bedside Glucose 114 182 137 132 Medications Medications Current Medications Acetaminophen (Tylenol Tab) 650 mg Q6H PRN PO PAIN LEVEL 1-3 OR FEVER; Start at 19:00 Acetaminophen/ Hydrocodone Bitart ([place] (5/325)) 1 tab Q6H PRN PO PAIN LEVEL 4 -6 Last administered on 12/31/16 12:22; Admin Dose 1 TAB; Start 12/25/16 at 19: 00 Magnesium Hydroxide (Milk Of Mag) 30 ml DAILY PRN PO CONSTIPATION; Start at 19:00 Bisacodyl (Dulcolax) 5 mg DAILY PRN PO CONSTIPATION; Start 12/25/16 at 19:00 Atorvastatin Calcium (Lipitor) 40 mg HS PO Last administered on 01/05/17 20:31 ; Admin Dose 40 MG; Start 12/25/16 at 21:00 Glucose (Glutose) 15 gm Q15M PRN PO DECREASED GLUCOSE; Start 12/25/16 at 19:00 Glucose (Glutose) 22.5 gm Q15M PRN PO DECREASED GLUCOSE; Start 12/25/16 at 19:00 Dextrose (D50w Syringe) 25 ml Q15M PRN IV DECREASED GLUCOSE; Start 12/25/16 at 19:00 Dextrose (D50w Syringe) 50 ml Q15M PRN IV DECREASED GLUCOSE; Start 12/25/16 at 19:00 Glucagon (Glucagen) 1 mg Q15M PRN IM DECREASED GLUCOSE; Start 12/25/16 at 19:00 Glucose (Glutose) 15 gm Q15M PRN BUCCAL DECREASED GLUCOSE; Start 12/25/16 at 19: 00 Nifedipine (Procardia Xl) 60 mg BID PO Last administered on 01/06/17 20:32; Admin Dose 60 MG; Start 12/25/16 at 21:00 Diagnostic Test (Pha) (Accucheck) 1 ea 02 XX Last administered on 12/26/16 02: 00; Admin Dose 1 EA; Start 12/26/16 at 02:00 Cholecalciferol (Vitamin D) 1,000 unit DAILY PO Last administered on 01/07/17 08:02; Admin Dose 1,000 UNIT; Start 12/26/16 at 09:00 Famotidine (Pepcid) 20 mg BID PO Last administered on 01/07/17 08:02; Admin Dose 20 MG; Start 12/25/16 at 21:00 Lorazepam (Ativan) 0.5 mg Q8H PRN PO ANXIETY; Start 12/25/16 at 19:00 Meclizine HCl (Antivert) 12.5 mg TID PRN PO Vertigo Last administered on 21:05; Admin Dose 12.5 MG; Start 12/25/16 at 19:00 Miscellaneous Information 1 ea NOTE XX ; Start 12/25/16 at 19:00 Docusate Sodium (Colace) 100 mg BID PO Last administered on 12/29/16 08:07; Admin Dose 100 MG; Start 12/26/16 at 09:00 Senna (Senokot) 1 tab HS PO Last administered on 12/26/16 22:07; Admin Dose 1 TAB; Start 12/26/16 at 21:00 Lactulose (Enulose) 20 gm DAILY PRN PO CONSTIPATION; Start 12/26/16 at 04:30 Aspirin (Aspirin) 81 mg DAILY PO Last administered on 01/07/17 08:01; Admin Dose 81 MG; Start 12/26/16 at 12:00 Ondansetron HCl (Zofran Inj) 4 mg Q6H PRN IV NAUSEA AND/OR VOMITING Last administered on 12/27/16 01:00; Admin Dose 4 MG; Start 12/27/16 at 00:30 ALMA HURST MD Jan 07, 2017 14:31
[2017-01-07] MEDS: ATORVASTATIN 40 MG TAB PO SCH (20:07)
[2017-01-07 20:34] VITALS: BP 115/76; RESP 18
[2017-01-07] MEDS: SENNA TAB PO SCH (21:00)
[2017-01-08] MEDS: ACCUCHECK XX SCH (02:00)
[2017-01-08] MEDS: INSULIN ASPART [NOVOLOG] 3 ML PEN SC SCH ×2 (07:35→12:00)
[2017-01-08 08:13] VITALS: BP 127/62; PULSE 68; RESP 20
[2017-01-08] MEDS: ASPIRIN 81 MG TAB PO SCH (08:38)
[2017-01-08] MEDS: metFORMIN 500 MG TAB PO SCH (08:38)
[2017-01-08] MEDS: FAMOTIDINE 20 MG TAB PO SCH (08:38)
[2017-01-08] MEDS: CHOLECALCIFEROL 1,000 UNIT TAB PO SCH (08:44)
[2017-01-08] MEDS: NIFEdipine (XL) 60 MG TAB PO SCH (08:44)
[2017-01-08] MEDS: DOCUSATE SODIUM 100 MG CAP PO SCH (08:45)
--- NOTE | 2017-01-08 16:19 | PN ---
Date/Time of Note Date/Time of Note DATE: 01/08/17 TIME: 11:10 Assessment/Plan VTE Prophylaxis VTE Prophylaxis Intervention: SCD's Lines/Catheters IV [facility] Type (from [facility] Saline Lock Urinary Cath still in place: No Assessment/Plan Chief Complaint/Hosp Course ASSESSMENT AND PLAN: 1. Acute left pontine infarct. Continue aspirin, statin. Continue to monitor and treat blood pressure with nifedipine. Continue physical therapy and occupational therapy. 2. Incidental finding of cerebral aneurysm, stable. The patient was seen and evaluated by neurosurgery during the course of the hospitalization. Will plan to follow up with neurosurgery as outpatient. 3. Essential hypertension, well controlled on nifedipine. 4. Diabetes mellitus type 2. On insulin sliding scale and metformin, low- carbohydrate diet. 5. Dyslipidemia. Continue statin. 6. Vitamin D deficiency. Continue vitamin D supplementation. 7. For deep venous thrombosis prophylaxis, the patient is ambulating and has been started on sequential compression devices. Refrain from using any pharmacologic DVT prophylaxis at this time secondary to incidental finding of cerebral aneurysm. 8. For gastrointestinal prophylaxis, on Pepcid. Patient is medically clear for discharge with close follow-up with primary care physician Problems: Subjective 24 Hr Interval Summary Free Text/Dictation Denies any chest pain or shortness of breath Moderate special event assistant for ambulation Walk with a walker Exam/Review of Systems Vital Signs Vitals Vital Signs Date Time Temp Pulse Resp B/P Pulse Ox O2 Delivery O2 Flow Rate FiO2 01/08/17 08:13 97.8 68 20 127/62 97 Room Air Intake and Output 01/07/17 01/07/17 01/08/17 15:00 23:00 07:00 Intake Total 750 ml 500 ml Balance 750 ml 500 ml Exam General: The patient is well-developed, Not in acute distress. HEENT: Atraumatic, normocephalic. The pupils are equal and round . Neck: Supple with full range of motion. Chest: Normal expansion of the thorax during inspiration Lungs: Clear to auscultation bilaterally Heart: Normal S1-S2, Regular rhythm and rate. Abdomen: Soft , nontender, nondistended , bowel sounds are present. Extremities: Right upper and lower extremity weakness 3/5, no edema no cyanosis Neurologic: Normal mental status,The patient is awake, alert and oriented . Results Results 24 hrs Laboratory Tests Test 01/07/17 16:56 01/07/17 20:12 01/08/17 07:22 01/08/17 11:33 Bedside Glucose 122 168 143 107 ALMA HURST MD Jan 08, 2017 16:19
--- NOTE | 2017-01-08 18:42 | CONS ---
DATE OF ADMISSION: 12/25/2016 DATE OF CONSULTATION: 01/08/2017 PSYCHOLOGY -- INDIVIDUAL SESSION [id number]. HISTORY OF PRESENT ILLNESS: This is a followup on a patient who was seen last week. The patient is being discharged today. The patient feels good about this. The patient feels like she is making pr ogress. The patient is still very frustrated about the weakness on her right side. The patient is feeling positive that her face, however, has cleared up, and she is able to speak well and not have a facial droop. The patient is motivated to continue to try to help herself and does look forward to returning home today with her , who was present with the patient's permission during the session. The erendira ent was worked with supportively to try to continue to encourage her to work on her present physical and emotional issues. PLAN: The patient may follow up with somebody dealing with some of the emotional issues about her s troke after discharge. Dictated By: MARTINA KAUFMAN PHD INESSA/BRII Conf#: [id number] DID#: [id number]
== END 2017-01-08 13:30 | disposition home health service (06) | DRG 57 ==
LOC: VRC 17:11
PROVIDERS: ADMIT Physical Medicine & Rehabilitation; ATTEND Family Medicine
PROC: F07Z5ZZ Bed Mobility Treatment (ICD-10-PCS; principal; 2016-12-25)
PROC: F07Z8ZZ Transfer Training Treatment (ICD-10-PCS; 2016-12-25)
PROC: F07Z9ZZ Gait Training/Functional Ambulation Treatment (ICD-10-PCS; 2016-12-25)
PROC: F08Z0ZZ Bathing/Showering Techniques Treatment (ICD-10-PCS; 2016-12-25)
PROC: F08Z1ZZ Dressing Techniques Treatment (ICD-10-PCS; 2016-12-25)
PROC: F08Z2ZZ Grooming/Personal Hygiene Treatment (ICD-10-PCS; 2016-12-25)
DX: I69.351 Hemiplegia and hemiparesis following cerebral infarction affecting right dominant side (principal); I67.1 Cerebral aneurysm, nonruptured; E55.9 Vitamin D deficiency, unspecified; E11.65 Type 2 diabetes mellitus with hyperglycemia; M48.02 Spinal stenosis, cervical region; R13.10 Dysphagia, unspecified; I10 Essential (primary) hypertension; E78.5 Hyperlipidemia, unspecified; R19.7 Diarrhea, unspecified; F06.31 Mood disorder due to known physiological condition with depressive features
CPT/HCPCS: 70450; 80053; 81001; 81003; 82962; 85025; 87081; 87086; 92507; 92523; 92526; 92610; 95852; 97110; 97112; 97116; 97163; 97167; 97530; 97535; 97542; J1815; J2405; L1820; L2270; L2275; L2820